=== PATIENT | male | born 1945 | race Caucasian/White ===

== ENCOUNTER 2017-03-18 07:27 | Inpatient (IN) | payer MEDICARE, OTHER ==
[~2017-03-18] VITALS: Ht 167.6 cm; Wt 91.0 kg
[2017-03-18] MEDS: ACCU-CHEK XX SCH
[2017-03-18] MEDS ORDERED: ACETAMINOPHEN 650 MG SUPP PR STA (07:45)
[2017-03-18] MEDS ORDERED: NORepinephrine 8MG/250 ML (PMX 250 ML ONE ×2 (07:45→18:38)
[2017-03-18 07:48] VITALS: Ht 167.6 cm; Wt 91.0 kg
[2017-03-18] MEDS ORDERED: VANCOMYCIN 1 GM (PMX) 250 ML IVPB STA (07:50)
[2017-03-18] MEDS ORDERED: SODIUM CHLORIDE 0.9% 1L BAG IV* STA (07:50)
[2017-03-18] MEDS ORDERED: NORepinephrine 8MG/250 ML (PMX 250 ML IV STA (07:50)
[2017-03-18] MEDS ORDERED: LEVOFLOXACIN 750MG/D5W (PMX) 150 ML IVPB STA (07:50)
[2017-03-18] MEDS ORDERED: PIPER-TAZO 3.375 GM IV (PMX) 100 ML IVPB STA (07:50)
--- NOTE | 2017-03-18 08:03 | ERA ---
ER Documentation Chief Complaint Date/Time DATE: 03/18/17 TIME: 08:03 Chief Complaint pulseless unresponsive HPI History is obtained entirely from paramedics and review of jail facility records as patient is unable to provide any history due to his clinical condition. 71-year-old male with a history of traumatic brain injury, seizure disorder, respiratory failure, atrial fibrillation, hypertension, hydrocephalus, peripheral vascular disease, rheumatoid arthritis, coronary artery disease, anxiety, depression and anemia presents to the emergency department via rescue ambulance for evaluation of altered mental status and hypoxia. Paramedics were called to the jail facility because the patient was found this morning hypoxic with O2 saturation in the 70s despite 15 L of supplemental oxygen. When paramedics arrived they were informed that the patient has been unresponsive for approximately 5 minutes. He was transported to the ED and on arrival in the driveway became pulseless and apneic. Most recent admission 02/05 to [facility] for sepsis due to pneumonia, urinary tract infection and acute respiratory failure. ROS All systems reviewed and are negative except as per history of present illness. Medications Home Meds Reported Medications Digoxin* (Lanoxin*) 0.125 Mg Tablet, 0.125 MG GTB DAILY, TAB 03/18/17 Ascorbic Acid* (Ascorbic Acid*) 500 Mg/5 Ml Syrup, 500 MG GTB DAILY, #150 ML 03/18/17 Zinc Sulfate* (Zinc Sulfate*) 220 Mg Tablet, 220 MG PO DAILY, TAB 03/18/17 Sennosides* (Senna Lax*) 8.6 Mg Tablet, 1 TAB PO DAILY Y for CONSTIPATION, TAB 03/18/17 Glucagon,Human Recombinant (Glucagon Emergency Kit) 1 Mg Kit, 1 MG IJ DAILY Y for GLUCOSE DECREASED, KIT 03/18/17 Insulin Regular, Human (Humulin R) 100 Unit/1 Ml Vial, 0-20 UNIT IJ DAILY, VIAL 03/18/17 Mirtazapine* (Mirtazapine*) 7.5 Mg Tablet, 7.5 MG GTB HS, TAB 03/18/17 Acetaminophen* (Acetaminophen*) 650 Mg Tablet, 650 MG GTB Q6H Y for MILD PAIN LEVEL 1-3, #30 TAB 03/18/17 Magnesium Hydroxide* (Milk Of Magnesia*) 400 Mg/5 Ml Oral.susp, 30 ML GTB DAILY Y for CONSTIPATION, ML 03/18/17 Ferrous Sulfate* (Ferrous Sulfate*) 325 Mg Tabec, 325 MG GTB TID, TAB 03/18/17 Levetiracetam* (Keppra*) 500 Mg/5 Ml Solution, 500 MG GTB BID, BOTTLE 03/18/17 Polyvinyl Alcohol* (Polyvinyl Alcohol*) 15 Ml Drops, 1 DROP BOTH EYES BID, EA 03/18/17 Magnesium Oxide* (Magnesium Oxide*) 400 Mg Tablet, 400 MG GTB BID, TAB 03/18/17 Terazosin Hcl* (Terazosin Hcl*) 2 Mg Capsule, 2 MG GTB BID, CAP HOLD FOR SBP<110+ 03/18/17 Metoprolol Tartrate* (Lopressor*) 25 Mg Tab, 25 MG GTB BID, #60 TAB 03/18/17 Rivaroxaban* (Xarelto*) 20 Mg Tablet, 20 MG GTB WITH DINNER, TAB 03/18/17 Pantoprazole* (Pantoprazole*) 40 Mg Tablet.dr, 40 MG GTB DAILY, TAB 03/18/17 Amino Acids/Protein Hydrolys (Pro-Stat 64 Liquid) 887 Ml Liquid, 30 ML GTB DAILY 03/18/17 Multivitamins* (Theragran*) 1 Tab Tab, 1 TAB GTB DAILY, TAB 03/18/17 Polyethylene Glycol* (Miralax*) 17 Gm Powd.pack, 17 GM GTB DAILY, #30 PACKET 03/18/17 Tamsulosin Hcl* (Tamsulosin Hcl*) 0.4 Mg Cap.er.24h, 0.4 MG GTB DAILY, CAP 03/18/17 Allergies Allergies: Coded Allergies: No Known Allergy (Unverified , 03/18/17) PMhx/Soc Reviewed in chart. As per HPI. SNF resident. History of Surgery: Yes (G-tube) Hx Neurological Disorder: Yes (Traumatic brain injury, seizures, hydrocephalus) Hx Respiratory Disorders: Yes (COPD, respiratory failure, pneumonia) Hx Cardiac Disorders: Yes (ASHD, atrial fib) Hx Psychiatric Problems: Yes (Anxiety, depression) Hx Alcohol Use: No Hx Substance Use: No Hx Tobacco Use: No FmHx Unknown Physical Exam Vitals Vital Signs Date Time Temp Pulse Resp B/P Pulse Ox O2 Delivery O2 Flow Rate FiO2 03/18/17 20:29 93.5 76 18 86/55 100 Mechanical Ventilator 8/2/17 20:15 93.6 88 18 75/51 100 Mechanical Ventilator 8/2/17 20:00 93.7 87 18 103/63 100 Mechanical Ventilator 8/2/17 19:45 93.7 89 18 106/65 100 Mechanical Ventilator 8/2/17 19:30 93.7 94 18 109/60 100 Mechanical Ventilator 8/2/17 19:15 93.8 97 18 95/64 100 Mechanical Ventilator 8/2/17 19:00 94.3 93 18 140/65 100 Mechanical Ventilator 8/2/17 18:45 94.5 94 18 119/61 98 Mechanical Ventilator 8/2/17 18:24 94.5 107 18 122/62 95 Mechanical Ventilator 8/2/17 17:30 95 18 99 35 8/2/17 17:30 91 18 123/60 95 Mechanical Ventilator 8/2/17 16:30 94.8 92 18 123/67 97 Mechanical Ventilator 8/2/17 15:30 95.4 96 18 112/64 98 Mechanical Ventilator 82/17 15:00 94 18 99 35 8/2/17 14:30 95.9 103 18 106/53 98 Mechanical Ventilator 82/17 13:30 96.8 99 18 91/55 98 Mechanical Ventilator 82/17 13:03 106 18 105/58 96 Mechanical Ventilator 8/2/17 13:00 103 18 100 35 8/2/17 12:35 104 18 95/53 95 Mechanical Ventilator 8/2/17 12:31 97.5 99 18 55/34 96 Mechanical Ventilator 82/17 12:10 97.5 105 18 104/64 95 Mechanical Ventilator 82/17 11:55 94 18 105/68 8/2/17 11:44 98.2 110 18 102/50 94 Mechanical Ventilator 8/2/17 11:30 101 18 108/62 94 Mechanical Ventilator 8/2/17 11:18 98.9 104 18 99/61 100 Mechanical Ventilator 8/2/17 11:00 92 18 95 35 8/2/17 10:30 106 102/63 100 Mechanical Ventilator 8/2/17 10:22 105 98/60 100 Mechanical Ventilator 8/2/17 10:00 103 19 104/62 100 Mechanical Ventilator 8/2/17 09:50 103 16 121/67 100 Mechanical Ventilator 8/2/17 09:45 100.0 108 26 122/65 100 Mechanical Ventilator 03/18/17 09:43 108 25 102/61 100 Mechanical Ventilator 03/18/17 09:33 105 26 101/62 100 Mechanical Ventilator 03/18/17 09:30 75 16 100 100 03/18/17 09:18 128 16 91/56 100 Mechanical Ventilator 03/18/17 09:13 109 16 103/55 03/18/17 09:04 110 17 104/59 03/18/17 08:55 111 16 103/59 03/18/17 08:48 113 97/54 03/18/17 08:43 117 17 102/56 03/18/17 08:38 117 16 108/56 03/18/17 08:32 119 100/57 03/18/17 08:31 119 104/56 100 Mechanical Ventilator 03/18/17 08:20 122 16 90/57 03/18/17 08:14 120 16 62/43 03/18/17 08:12 123 16 66/28 03/18/17 08:09 120 83/62 03/18/17 08:05 118 16 43/27 03/18/17 08:03 118 16 64/42 100 Mechanical Ventilator 03/18/17 08:01 116 16 57/42 100 Mechanical Ventilator 03/18/17 07:58 114 16 73/47 100 Mechanical Ventilator 03/18/17 07:56 59 22 56/41 93 Mechanical Ventilator 03/18/17 07:52 22 14 51/45 Mechanical Ventilator 03/18/17 07:48 103.8 44 16 73/35 95 03/18/17 07:43 103.6 51 16 73/35 Mechanical Ventilator 03/18/17 07:35 32 16 100 100 03/18/17 07:27 Bag Valve Mask 15 Physical Exam Const: Apneic, pulseless, unresponsive Head: Atraumatic Eyes: Normal Conjunctiva ENT: Mucous membranes dry Neck: JVD Resp: No spontaneous respirations, decreased breath sounds with bag valve mask Cardio: Pulseless Abd: Soft, non tender, non distended. No masses. G-Tube. Skin: Cyanotic Back: No deformity Ext: Cyanotic, no edema Neur: Unresponsive, Carl Coma Scale 3 Physical examination is truncated due to the constraints imposed by the patient' s clinical condition Result Diagram: 03/18/17 0815 03/18/17 7615 Results 24 hrs Laboratory Tests Test 03/18/17 07:45 03/18/17 08:15 03/18/17 09:03 03/18/17 09:26 Sodium Level 171mmol/L Potassium Level 3.7mmol/L Chloride Level 125mmol/L Carbon Dioxide Level 27mmol/L Anion Gap 23 Blood Urea Nitrogen 54mg/dl Creatinine 1.37mg/dl Glucose Level 405mg/dl Calcium Level 7.4mg/dl Total Bilirubin 0.0mg/dl Direct Bilirubin 0.00mg/dl Indirect Bilirubin 0.0mg/dl Aspartate Amino Transf (AST/SGOT) 82IU/L Alanine Aminotransferase (ALT/SGPT) 89IU/L Alkaline Phosphatase 103IU/L Total Protein 6.0g/dl Albumin 2.5g/dl Globulin 3.50g/dl Albumin/Globulin Ratio 0.71 White Blood Count 5.910^3/ul Red Blood Count 2.6910^6/ul Hemoglobin 7.8g/dl Hematocrit 27.7% Mean Corpuscular Volume 103.0fl Mean Corpuscular Hemoglobin 29.0pg Mean Corpuscular Hemoglobin Concent 28.2g/dl Red Cell Distribution Width 16.4% Platelet Count 77090^3/UL Mean Platelet Volume 14.0fl Neutrophils % 79.6% Lymphocytes % 14.1% Monocytes % 2.9% Eosinophils % 0.2% Basophils % 0.2% Nucleated Red Blood Cells % 0.5/100WBC Neutrophils # 4.710^3/ul Lymphocytes # 0.810^3/ul Monocytes # 0.210^3/ul Eosinophils # 0.010^3/ul Basophils # 0.010^3/ul Nucleated Red Blood Cells # 0.010^3/ul Prothrombin Time 18.7Sec Prothrombin Time Ratio 1.5 INR International Normalized Ratio 1.55 Activated Partial Thromboplast Time 36.4Sec Fibrinogen 497.0mg/dl D-Dimer > 81369.00ng/ml Lactic Acid Level 9.0mmol/L Phosphorus Level 5.8mg/dl Magnesium Level 2.4mg/dl Creatine Kinase 74IU/L Creatine Kinase Index 1.3 Creatinine Kinase MB (Mass) 0.94ng/ml Troponin I 0.312ng/ml Amylase Level 95U/L Lipase 61U/L Bedside Glucose 461mg/dL Blood Gas Specimen Source Blood arterial Arterial Blood Date Drawn 03/18/2017 10:00:32 AM Arterial Blood pH (Temp corrected) 7.235 Arterial Blood pCO2 (Temp correct) 61.6mmhg Arterial Blood pO2 (Temp corrected) 72.3mmHG Arterial Blood HCO3 25.5mmol/L Arterial Blood Base Excess -2.5mmol/L Arterial Blood Oxygen Saturation 88.7mmHG [place] Test N/A Arterial Blood Gas Puncture Site Right Brachial Arterial Blood Carboxyhemoglobin 0.2% Arterial Blood Methemoglobin 0.6% Blood Gas A-a O2 Differential 579.1mmHg Oxyhemoglobin Percent 88.0% Total Hemoglobin 10.2g/dl Blood Gas Temperature 37.0C Blood Gas Respiration Rate 16.0 Blood Gas Actual Respiration Rate 17 Blood Gas Modality VENT - AC FiO2 100.0% Blood Gas Tidal Volume 550.0mL Blood Gas Low PEEP Setting 5.0cmH2O Blood Gas Critical Value Read Back DR DYE Blood Gas Notified Whom TM Blood Gas Notified Time 03/18/2017 10:09:28 AM Test 03/18/17 10:03 03/18/17 10:05 03/18/17 10:20 03/18/17 13:54 Bedside Glucose 364mg/dL 363mg/dL Urine Color EDIE Urine Clarity CLOUDY Urine pH 6.0 Urine Specific [place] 1.014 Urine Ketones NEGATIVEmg/dL Urine Nitrite NEGATIVEmg/dL Urine Bilirubin NEGATIVEmg/dL Urine Urobilinogen 2+mg/dL Urine Leukocyte Esterase NEGATIVELeu/ul Urine Microscopic RBC 30/HPF Urine Microscopic WBC 59/HPF Urine Amorphous Crystals FEW/HPF Urine Bacteria FEW/HPF Urine Granular Casts FEW/HPF Urine Mucus FEW/HPF Urine Yeast (Budding) MANY/HPF Urine Hemoglobin 1+mg/dL Urine Glucose 3+mg/dL Urine Total Protein 2+mg/dl Lactic Acid Level 5.8mmol/L Test 03/18/17 14:27 03/18/17 14:30 03/18/17 15:04 03/18/17 16:03 Blood Gas Specimen Source Blood arterial Arterial Blood Date Drawn 03/18/2017 3:00:26 PM Arterial Blood pH (Temp corrected) 7.387 Arterial Blood pCO2 (Temp correct) 39.5mmhg Arterial Blood pO2 (Temp corrected) 79.0mmHG Arterial Blood HCO3 23.6mmol/L Arterial Blood Base Excess -1.7mmol/L Arterial Blood Oxygen Saturation 96.1mmHG Stanford Test ACCEPTAB Arterial Blood Gas Puncture Site Right Brachial Arterial Blood Carboxyhemoglobin 0% Arterial Blood Methemoglobin 0.3% Blood Gas A-a O2 Differential 126.0mmHg Oxyhemoglobin Percent 95.8% Total Hemoglobin 11.3g/dl Blood Gas Temperature 35.4C Blood Gas Respiration Rate 18.0 Blood Gas Actual Respiration Rate 18 Blood Gas Modality VENT - AC FiO2 35.0% Blood Gas Tidal Volume 550.0mL Blood Gas Low PEEP Setting 5.0cmH2O Blood Gas Notified Whom MDA Blood Gas Notified Time 03/18/2017 3:03:58 PM Prothrombin Time 19.1Sec Prothrombin Time Ratio 1.5 INR International Normalized Ratio 1.59 Activated Partial Thromboplast Time 35.4Sec Lactic Acid Level 4.8mmol/L Creatine Kinase 208IU/L Creatine Kinase Index 2.9 Creatinine Kinase MB (Mass) 6.11ng/ml Troponin I 0.845ng/ml Free Thyroxine 1.22ng/dl Bedside Glucose 177mg/dL 227mg/dL Test 03/18/17 18:40 03/18/17 20:27 Sodium Level 165mmol/L Potassium Level 3.6mmol/L Chloride Level 123mmol/L Carbon Dioxide Level 26mmol/L Anion Gap 20 Blood Urea Nitrogen 56mg/dl Creatinine 1.52mg/dl Glucose Level 249mg/dl Lactic Acid Level 4.5mmol/L Calcium Level 7.1mg/dl Creatine Kinase 292IU/L Creatine Kinase Index 2.9 Creatinine Kinase MB (Mass) 8.54ng/ml Troponin I 0.796ng/ml Blood Gas Specimen Source Blood arterial Arterial Blood Date Drawn 03/18/2017 8:30:45 PM Arterial Blood pH (Temp corrected) 7.467 Arterial Blood pCO2 (Temp correct) 33.0mmhg Arterial Blood pO2 (Temp corrected) 71.6mmHG Arterial Blood HCO3 23.9mmol/L Arterial Blood Base Excess -0.2mmol/L Arterial Blood Oxygen Saturation 96.5mmHG Stanford Test N/A Arterial Blood Gas Puncture Site Right Brachial Arterial Blood Carboxyhemoglobin 0% Arterial Blood Methemoglobin 0.3% Blood Gas A-a O2 Differential 142.0mmHg Oxyhemoglobin Percent 96.2% Total Hemoglobin 11.8g/dl Blood Gas Temperature 34.2C Blood Gas Respiration Rate 18.0 Blood Gas Actual Respiration Rate 18 Blood Gas Modality VENT - AC FiO2 35.0% Blood Gas Tidal Volume 550.0mL Blood Gas Low PEEP Setting 5.0cmH2O Blood Gas Inspiratory Pressure 25.0 Blood Gas Notified Whom AA Blood Gas Notified Time 03/18/2017 8:43:45 PM Current Medications Medications (Trade) Dose Ordered Sig/Elias Route PRN Reason Start Time Stop Time Status Last Admin Dose Admin Acetaminophen (Tylenol Supp) 650 mg ONCE STAT MS 03/18/17 07:45 03/18/17 07:48 DC 03/18/17 08:17 Sodium Chloride 2330 ml 2,330 ml BOLUS OVER 2 HOURS STAT IV* 03/18/17 07:50 03/18/17 07:52 DC 03/18/17 07:40 Norepinephrine 250 ml @ 7.5 mls/hr ONCE STAT IV 03/18/17 07:50 03/19/17 17:09 03/18/17 07:50 Vancomycin HCl 250 ml @ 125 mls/hr ONCE STAT IVPB 03/18/17 07:50 03/18/17 09:49 DC Piperacillin Sod/ Tazobactam Sod 100 ml @ 200 mls/hr ONCE STAT IVPB 03/18/17 07:50 03/18/17 08:19 DC 03/18/17 08:40 Levofloxacin/ Dextrose (Levaquin 750 Mg/ D5W 150 ml (Pmx)) 150 ml @ 100 mls/hr ONCE STAT IVPB 03/18/17 07:50 03/18/17 09:19 DC 03/18/17 09:37 Fentanyl (Sublimaze) 100 mcg STK-MED ONCE .ROUTE 03/18/17 09:31 03/18/17 09:32 DC Aspirin (Aspirin) 300 mg ONCE ONCE MS 03/18/17 10:30 03/18/17 10:31 DC 03/18/17 14:12 IV Flush (NS 3 ml) 3 ml PER PROTOCOL IV 03/18/17 10:30 Ondansetron HCl (Zofran Inj) 4 mg Q6H PRN IV NAUSEA AND/OR VOMITING 03/18/17 10:30 Acetaminophen (Tylenol Tab) 650 mg Q6H PRN PO PAIN LEVEL 1-3 OR FEVER 03/18/17 10:30 Acetaminophen/ Hydrocodone Bitart ([place] (5/325)) 1 tab Q6H PRN PO MODERATE PAIN LEVEL 4-6 03/18/17 10:30 Morphine Sulfate (morphine) 2 mg Q4H PRN IV SEVERE PAIN LEVEL 7-10 03/18/17 10:30 Docusate Sodium (Colace) 100 mg Q12H PRN PO CONSTIPATION 03/18/17 10:30 Magnesium Hydroxide (Milk Of Mag) 30 ml DAILY PRN PO CONSTIPATION 03/18/17 10:30 Sodium Biphosphate/ Sodium Phosphate (Fleet Enema) 133 ml DAILY PRN MS CONSTIPATION 03/18/17 10:30 Famotidine 20 mg 20 mg HS IV 03/18/17 21:00 Sodium Chloride (1/2 NS) 1,000 ml @ 75 mls/hr [id number] IV 03/18/17 10:09 03/18/17 14:24 DC 03/18/17 13:44 Lorazepam (Ativan) 0.5 mg Q6H PRN IV ANXIETY 03/18/17 10:30 Albuterol/ Ipratropium (Duoneb) 3 ml Q4H RESP THERAPY PRN HHN SHORTNESS OF BREATH 03/18/17 10:30 Vancomycin HCl (Vanco Iv Per Pharmacy) VANCOMYCIN PER PHARMACY NOTE XX 03/18/17 10:30 Hydralazine HCl (Apresoline) 10 mg Q6H PRN IV ELEVATED BLOOD PRESSURE 03/18/17 10:30 Nitroglycerin (Nitroglycerin (Sl Tab) 0.4 Mg) 1 tab Q5M PRN SL ANGINA 03/18/17 10:30 Miscellaneous Information (* Miscellaneous Pharmacy Order) Discontinue all previ... PROTOCOL ONCE XX 03/18/17 10:30 03/18/17 11:29 DC Diagnostic Test (Pha) 1 ea 1 ea Q1H XX 03/18/17 10:30 03/18/17 16:20 DC Insulin Human Regular/Sodium Chloride (Novolin-R/NS) 100 ml @ 0 mls/hr PER PROTOCOL IV 03/18/17 10:30 03/18/17 16:20 DC Miscellaneous Information (* Miscellaneous Pharmacy Order) Treatment of Hypoglycemia: 1.BG 51... Per protocol XX 03/18/17 10:30 03/18/17 16:20 DC Dextrose (D50w Syringe) 25 ml Q15M PRN IV Till BS 80 mg/dL or above x2 03/18/17 10:30 Dextrose 50 ml 50 ml Q15M PRN IV Till BS 80 mg/dL or above x2 03/18/17 10:30 Cefepime HCl (Maxipime 2gm/50 ml (Pmx)) 50 ml @ 100 mls/hr Q8 IVPB 03/18/17 14:00 03/18/17 14:00 DC Midazolam HCl (Versed) 2 mg STK-MED ONCE .ROUTE 03/18/17 10:34 03/18/17 10:35 DC Sodium Chloride 500 ml 500 ml ONCE STAT IV* 03/18/17 10:42 03/18/17 10:46 DC Insulin Human Regular/Sodium Chloride (Novolin-R/NS) 100 ml @ 0 mls/hr ONCE STAT IV 03/18/17 10:42 03/18/17 10:46 DC 03/18/17 14:06 Fentanyl (Sublimaze) 50 mcg ONCE STAT IV 03/18/17 10:42 03/18/17 10:47 DC 03/18/17 09:45 Fentanyl (Sublimaze) 25 mcg Q10M PRN IV SEDATION 03/18/17 11:00 03/18/17 11:33 Midazolam HCl (Versed) 2 mg ONCE ONCE IV 03/18/17 11:00 03/18/17 11:01 DC 03/18/17 11:30 Vecuronium [place] 8 mg 8 mg ONCE ONCE IV 03/18/17 11:00 03/18/17 11:01 DC 03/18/17 11:41 Vecuronium [place]/Dextrose (Norcuron/D5W) 100 ml @ 4.5 mls/hr [id number] ONCE IV 03/18/17 10:42 03/19/17 08:55 Eye Lubricant 1 applic 1 applic ONCE ONCE BOTH EYES 03/18/17 11:00 03/18/17 11:01 DC 03/18/17 14:27 Midazolam HCl (Versed) 50 ml @ 2 mls/hr ONCE IV 03/18/17 11:30 03/18/17 11:58 Miscellaneous Information 1 ea NOTE XX 03/18/17 11:30 03/18/17 11:30 DC Glucose (Glutose) 15 gm Q15M PRN PO DECREASED GLUCOSE 03/18/17 11:30 03/18/17 11:30 DC Glucose (Glutose) 22.5 gm Q15M PRN PO DECREASED GLUCOSE 03/18/17 11:30 03/18/17 11:30 DC Dextrose (D50w Syringe) 25 ml Q15M PRN IV DECREASED GLUCOSE 03/18/17 11:30 03/18/17 11:30 DC Dextrose (D50w Syringe) 50 ml Q15M PRN IV DECREASED GLUCOSE 03/18/17 11:30 03/18/17 11:30 DC Glucagon (Glucagen) 1 mg Q15M PRN IM DECREASED GLUCOSE 03/18/17 11:30 03/18/17 11:30 DC Glucose 15 gm 15 gm Q15M PRN BUCCAL DECREASED GLUCOSE 03/18/17 11:30 03/18/17 11:30 DC Vancomycin HCl 1.5 gm/Sodium Chloride 250 ml @ 83.333 mls/ hr ONCE IVPB 03/18/17 12:30 03/18/17 15:29 DC Vancomycin HCl 1.25 gm/Sodium Chloride 250 ml @ 83.333 mls/ hr Q24H IVPB 03/19/17 12:30 Cefepime HCl 50 ml @ 100 mls/hr Q12 IVPB 03/18/17 12:00 03/18/17 13:37 Dextrose (D5W) 1,000 ml @ 200 mls/hr Q5H IV 03/18/17 14:30 03/18/17 19:42 DC 03/18/17 15:11 Acetaminophen (Tylenol Supp) 650 mg Q4H PRN MS TEMP > 37C 03/18/17 14:30 03/18/17 19:08 Acetaminophen (Tylenol Liquid) 650 mg Q4H PRN PO TEMP > 37C 03/18/17 14:30 Acetaminophen (Tylenol Supp) 500 mg Q6H MS 03/19/17 14:30 Acetaminophen (Tylenol Liquid) 500 mg Q6H PO 03/19/17 14:30 Meperidine HCl (Demerol) 12.5 mg Q4H PRN IV POST OPERATIVE SHIVERING 03/18/17 14:30 Meperidine HCl (Demerol) 25 mg Q4H PRN IV POST OPERATIVE SHIVERING 03/18/17 14:30 Eye Lubricant ([place]wa Oint) 1 applic Q6 BOTH EYES 03/18/17 18:00 Eye Lubricant (Artificial Tears Oph) 2 drop Q6 BOTH EYES 03/18/17 18:00 Miscellaneous Information (* Miscellaneous Pharmacy Order) Discontinue all previ... PROTOCOL ONCE XX 03/18/17 14:30 03/18/17 16:20 DC Diagnostic Test (Pha) 1 ea 1 ea Q1H XX 03/18/17 14:30 Insulin Human Regular/Sodium Chloride (Novolin-R/NS) 100 ml @ 0 mls/hr PER PROTOCOL IV 03/18/17 14:30 Miscellaneous Information (* Miscellaneous Pharmacy Order) Treatment of Hypoglycemia: 1.BG 51... Per protocol XX 03/18/17 14:30 Dextrose (D50w Syringe) 25 ml Q15M PRN IV Till BS 80 mg/dL or above x2 03/18/17 14:30 Dextrose 50 ml 50 ml Q15M PRN IV Till BS 80 mg/dL or above x2 03/18/17 14:30 Norepinephrine 250 ml @ ud STK-MED ONCE .ROUTE 03/18/17 07:45 03/18/17 19:09 DC Norepinephrine 250 ml @ ud STK-MED ONCE .ROUTE 03/18/17 18:38 03/18/17 19:09 DC Vasopressin 60 unit/Dextrose 60 ml @ 1.2 mls/hr Q12H IV 03/18/17 20:00 03/18/17 20:28 Potassium Chloride/Dextrose/ Sod Cl (D5-1/4ns + KCl 20 Meq) 1,000 ml @ 80 mls/hr [id number] IV 03/18/17 20:00 EKG: TIME: 8:08. Wide QRS tachycardia. Right bundle branch block. No acute ST segment elevation. EP Interpretation: Abnormal EKG. IMAGING: PROCEDURE: XR Chest. CLINICAL INDICATION: Status post intubation TECHNIQUE: Single portable view of the chest was obtained COMPARISON: None FINDINGS: There is a new endotracheal tube 3.6 cm above the soo. There is a right-sided [employer] shunt catheter in place. There are extensive patchy bilateral upper lobe and lower lobe infiltrates. There is a possible small left pleural effusion. There is mild cardiomegaly. There are postsurgical changes of the lower thoracic spine. RPTAT: AA IMPRESSION: New endotracheal tube in appropriate position. Extensive patchy bilateral upper lobe and lower lobe infiltrates. Small left pleural effusion. .Cory Gonzalez MD, MD Date Time Electronically viewed and signed by .Cory Gonzalez MD, on 03/18/2017 08: 59 .S/ Procedures/MDM DOCUMENTS REVIEWED: ED nurse, EMS, jail facility records PROCEDURES: Endotracheal Intubation by me: Pre assessment performed. See preceding note for details. Pre-oxygenation performed with 100% oxygen RSI: Performed w/o complication or hypoxic events. Medications as ordered. Blade: [place] scope ET Tube: 7 cm Depth: 22 cm at the lip Intubation confirmed by colorimetric CO2, equal breath sounds, quiet over the stomach. Chest X-ray 1V Interpreted by me: 2 cm above the soo ET tube. Normal soft tissue, No pneumothorax. Central Line Placement by me: Patient consented, sterilely draped, full prep, gown, glove, mask, time out performed. Anesthesia: 1% lidocaine locally Location: Right femoral Device: Multiple lumen Technique: Seldinger technique. Secured with suture. Results: Venous return from all ports with easy saline flush. No complications. Guide wire retrieved and disposed of. Cardiopulmonary Resuscitation by me: See code documentation for specific details. ACLS and BLS were performed with high quality chest compressions and minimal interruptions. Reversible causes were assessed and treated. Severe Sepsis criteria: Infectious source: Pneumonia End organ damage indicated by: Lactate > 2.0 mmol/L Hypotension (SBP < 90 or >40 mmHG drop or MAP < 65) Acute Resp Failure (sat < 92% w/o oxygen) Clam Treader > 2.0 INR > 1.5 Plt < 100 Bili > 2 Sepsis Management: Time of recognition of severe sepsis/septic shock: 07:45 Within 3 hours of recognition: Blood cultures x 2 before broad-spectrum antibiotics: Yes 30 ml/kg NS bolus Completed Initial lactate 9.0 Repeat lactate 5.8 Septic Shock Assessment: Any lactic acid > 4.0 yes Persistent hypotension (SBP < 90 or 40 mmHg drop, MAP < 65) despite 30 mL/kg IV fluid bolus No Volume Re-assessment for Septic Shock (post 30 ml/kg bolus @ 10:30): Temp 99.5, BP 102/63, HR 106, RR 18, Pox 100% Heart tachycardic. Regular rhythm. Lungs decreased breath sounds with rales and rhonchi. Skin Warm & dry Cap Refill less than 2 seconds Peripheral pulses radially present Central line Right femoral Vasopressor started Norepinehrine I considered further perfusion assessment with CVP measurement, SCVO2, bedside ultrasound volume assessment, passive leg raise, trial of further fluid bolus and proceeded with further fluid bolus. Accepting Care Team Current data and ongoing care discussed. Time: 09: 30 Admitting Physician: Dr. Rodrigo Gonzalez Critical Care Time: 35 minutes Treatments/Evaluations: Close monitoring and treatment of unstable vital signs, cardiorespiratory, and neurologic status, while maintaining tight balance of fluid, respiratory, and cardiac interventions. This includes the administration of emergency fluid management while maintaining close respiratory support as well as the provision of immediate and broad-spectrum antibiotic therapy, while performing a simultaneous assessment for possible sources in order to direct targeted therapy. This time includes discussing the case with the patient and the patient's family. This time also includes the consideration for invasive and chemical support to prevent cardiopulmonary collapse. This time does not include all procedures stated elsewhere in this record. This time also includes reviewing old records, labs and radiological studies. This time includes examining and re-examining the patient. Additionally, this time also includes arranging care with admitting and consulting physicians. MEDICAL DECISION MAKIN-year-old male with a history of traumatic brain injury, seizure disorder, respiratory failure, atrial fibrillation, hypertension , hydrocephalus, peripheral vascular disease, rheumatoid arthritis, coronary artery disease, anxiety, depression and anemia presents to the emergency department via rescue ambulance for evaluation of altered mental status and hypoxia. On presentation the patient was apneic and pulseless. CPR initiated with ACLS protocol and resuscitated successfully. Intubated and right femoral line placed emergently. ROSC and hypothermia as per protocol. Septic shock likely secondary to pneumonia. Ongoing hypotension required vasopressor support. Elevated troponin consistent with NSTEMI. Multiple other critical factors including severe anemia, hypernatremia, dehydration, renal insufficiency and diabetes mellitus out of control. Admit to ICU. Counseled family regarding diagnosis, diagnostic results and plan for admission. CALLS/CONSULTS: Time 09:10, Dr. Radha Gonzalez, Admit to ICU. PATIENT CARE TRANSITIONED: Time: 09:30, Dr. Regalado. 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
[2017-03-18 08:35] LABS: ABNORMAL IP MESSAGE 1; BASOPHILS % 0.2 % (0.0-2.0); EOSINOPHILS % 0.2 % (0.0-7.0); HEMATOCRIT 27.7 % (42.0-52.0); HEMOGLOBIN 7.8 g/dl (14.0-18.0); LYMPHOCYTES # 0.8 10^3/ul (0.8-2.9); LYMPHOCYTES % 14.1 % (15.0-51.0); MEAN CORPUSCULAR HGB CONC 28.2 g/dl (32.0-37.0); MONOCYTE # 0.2 10^3/ul (0.3-0.9); MONOCYTES % 2.9 % (0.0-11.0); NEUTROPHIL # 4.7 10^3/ul (1.6-7.5); NEUTROPHILS % 79.6 % (39.0-77.0); NUCLEATED RED BLOOD CELLS% 0.5 /100WBC (0.0-0.0); PLATELET COUNT 148 10^3/UL (140-415); POSITIVE DIFF @See below; RED BLOOD COUNT 2.69 10^6/ul (4.70-6.10); RED CELL DISTRIBUTION WIDTH 16.4 % (11.5-14.5); WHITE BLOOD COUNT 5.9 10^3/ul (4.8-10.8)
--- NOTE | 2017-03-18 08:59 | RADRPT ---
PROCEDURE: XR Chest. CLINICAL INDICATION: Status post intubation TECHNIQUE: Single portable view of the chest was obtained COMPARISON: None FINDINGS: There is a new endotracheal tube 3.6 cm above the soo. There is a right-sided SAP ARCHITECT shunt catheter in place. There are extensive patchy bilateral upper lobe and lower lobe infiltrates. There is a possible sma ll left pleural effusion. There is mild cardiomegaly. There are postsurgical changes of the lower thoracic spine. RPTAT: AA IMPRESSION: New endotracheal tube in appropriate position. Extensive patchy bilateral upper lobe and lower lobe infiltrates. Small left pleural effusion. .Cory Gonzalez MD, MD Date Time Electronically viewed and signed by .Cory Gonzalez MD, MD on 03/18/2017 08:59 .S/
[2017-03-18 09:04] LABS: INR 1.55; PROTIME 18.7 Sec (12.2-14.2); PT RATIO 1.5
[2017-03-18 09:05] LABS: PARTIAL THROMBOPLASTIN TIME 36.4 Sec (25.0-35.0)
[2017-03-18] MEDS ORDERED: FENTAnyl 50 MCG/ML VIAL ONE (09:31)
[2017-03-18 09:47] LABS: ALBUMIN 2.5 g/dl (3.3-4.9); ALBUMIN/GLOBULIN RATIO 0.71; CALCIUM 7.4 mg/dl (8.4-10.2); CREATININE 1.37 mg/dl (0.61-1.24); POTASSIUM 3.7 mmol/L (3.5-5.1)
[2017-03-18 09:55] LABS: CK-MB 0.94 ng/ml (0.0-2.4)
[2017-03-18 09:59] LABS: TROPONIN-I 0.312 ng/ml (0.00-0.12)
[2017-03-18 10:09] LABS: AADO2 Arterial 579.1 mmHg (7.0-24.0); Arterial Base Excess -2.5 mmol/L (-3.0-3); Arterial COHb 0.2 % (0.0-3.0); Arterial HCO3 25.5 mmol/L (22.0-26.0); Arterial MetHb 0.6 % (0.0-1.5); Arterial Total Hemglobin 10.2 g/dl (12.0-18.0); MODE VENT - AC
[2017-03-18] MEDS ORDERED: SOD CHLORIDE 0.45% 1,000 ML IV SCH (10:09)
[2017-03-18 10:11] LABS: MAGNESIUM 2.4 mg/dl (1.7-2.5); PHOSPHORUS 5.8 mg/dl (2.5-4.9)
[2017-03-18] MEDS ORDERED: HYDROCODONE/APAP (5/325) TAB PO PRN (10:30)
[2017-03-18] MEDS ORDERED: LORAZEPAM 2 MG INJ IV PRN (10:30)
[2017-03-18] MEDS ORDERED: ONDANSETRON 4 MG INJ IV PRN (10:30)
[2017-03-18] MEDS ORDERED: hydrALAzine 20 MG INJ IV PRN (10:30)
[2017-03-18] MEDS ORDERED: NACL 0.9% 3 ML SYG IV SCH (10:30)
[2017-03-18] MEDS ORDERED: INSULIN HUMAN REGULAR 100 UNIT in SOD CHLORIDE 0.9% 99 ML IV SCH (10:30)
[2017-03-18] MEDS ORDERED: ACETAMINOPHEN 325 MG TAB PO PRN (10:30)
[2017-03-18] MEDS ORDERED: ALBUTEROL/IPRATROPIUM (NEB) 3 ML AMP HHN PRN (10:30)
[2017-03-18] MEDS ORDERED: morphine 4 MG/ML VIAL IV PRN (10:30)
[2017-03-18] MEDS ORDERED: NITROGLYCERIN (SL) 0.4 MG TAB SL PRN (10:30)
[2017-03-18] MEDS ORDERED: VANCOMYCIN IV PER PHARMACY XX SCH (10:30)
[2017-03-18] MEDS ORDERED: DEXTROSE 50% 50 ML SYRINGE IV PRN ×6 (10:30→14:30)
[2017-03-18] MEDS ORDERED: DOCUSATE SODIUM 100 MG CAP PO PRN (10:30)
[2017-03-18] MEDS ORDERED: ACCU-CHEK XX SCH (10:30)
[2017-03-18] MEDS ORDERED: ASPIRIN 300 MG SUPP PR ONE (10:30)
[2017-03-18] MEDS ORDERED: MAGNESIUM HYDROXIDE 30ML CUP PO PRN (10:30)
[2017-03-18] MEDS ORDERED: NA PHOSPHATE/BIPHOS 133 ML ENEMA PR PRN (10:30)
[2017-03-18 10:34] LABS: ADD UMIC YES; UR AMORPHOUS CRYSTAL FEW /HPF (NONE SEEN); UR ASCORBIC ACID 40 mg/dL (NEGATIVE); UR BACTERIA FEW /HPF (NONE SEEN); UR BILIRUBIN (Dip) NEGATIVE (NEGATIVE); UR BLOOD (Dip) 1+ mg/dL (NEGATIVE); UR BUDDING YEAST MANY /HPF (NONE SEEN); UR CLARITY CLOUDY (CLEAR); UR COLOR AMBER (YELLOW); UR GLUCOSE (Dip) 3+ mg/dL (NEGATIVE); UR KETONES (Dip) NEGATIVE (NEGATIVE); UR LEUKOCYTE ESTERASE (Dip) NEGATIVE Leu/ul (NEGATIVE); UR MUCUS FEW /HPF (NONE SEEN); UR NITRITE (Dip) NEGATIVE (NEGATIVE); UR RBC 30 /HPF (0-5); UR SPECIFIC GRAVITY (Dip) 1.014 (1.003-1.030); UR TOTAL PROTEIN (Dip) 2+ mg/dl (NEGATIVE); UR UROBILINOGEN (Dip) 2+ mg/dL (NEGATIVE); UR WBC CLUMPS MANY /HPF (NONE SEEN)
[2017-03-18] MEDS ORDERED: MIDAZOLAM 1 MG/ML 2 ML INJ ONE (10:34)
[2017-03-18 10:38] LABS: D-DIMER > 10000.00 ng/ml (<460)
[2017-03-18] MEDS ORDERED: SODIUM CHLORIDE 0.9% 500 ML BAG IV* STA (10:42)
[2017-03-18] MEDS ORDERED: INSULIN HUMAN REGULAR 100 UNIT in SOD CHLORIDE 0.9% 99 ML IV STA (10:42)
[2017-03-18] MEDS ORDERED: FENTAnyl 50 MCG/ML VIAL IV STA (10:42)
[2017-03-18] MEDS ORDERED: VECURONIUM 100 MG in DEXTROSE 5% 100 ML IV ONE (10:42)
[2017-03-18] MEDS ORDERED: VECURONIUM 10 MG VIAL IV ONE (11:00)
[2017-03-18] MEDS ORDERED: OCULAR LUBRICANT 3.5 GM OPH OINT BOTH EYES ONE (11:00)
[2017-03-18] MEDS ORDERED: MIDAZOLAM 1 MG/ML 2 ML INJ IV ONE (11:00)
[2017-03-18] MEDS: FENTAnyl 50 MCG/ML VIAL IV PRN ×2 (11:29→11:33)
[2017-03-18] MEDS ORDERED: GLUCAGON 1 MG INJ IM PRN (11:30)
[2017-03-18] MEDS ORDERED: GLUCOSE GEL 15 GRAM TUBE BUCCAL PRN (11:30)
[2017-03-18] MEDS ORDERED: GLUCOSE GEL 15 GRAM TUBE PO PRN ×2 (11:30)
[2017-03-18] MEDS: MIDAZOLAM (DRIP) 50 mg/50 mL 50 ML IV SCH (11:58)
[2017-03-18] MEDS ORDERED: TAMS0.4C2 GTB (12:29)
[2017-03-18] MEDS ORDERED: VANCOMYCIN 1.5 GM in SOD CHLORIDE 0.9% 250 ML IVPB SCH (12:30)
[2017-03-18] MEDS ORDERED: POLY17PO6 GTB (12:32)
[2017-03-18] MEDS ORDERED: MULTI GTB (12:33)
[2017-03-18] MEDS ORDERED: AMIN887L GTB (12:35)
[2017-03-18] MEDS ORDERED: PANT40TA4 GTB (12:36)
[2017-03-18] MEDS ORDERED: METO-448 GTB (12:37)
[2017-03-18] MEDS ORDERED: RIVA20TA GTB (12:37)
[2017-03-18] MEDS ORDERED: TERA2CAP3 GTB (12:40)
[2017-03-18] MEDS ORDERED: MAGN400T28 GTB (12:41)
[2017-03-18] MEDS ORDERED: POLY15DR30 BOTH EYES (12:43)
[2017-03-18] MEDS ORDERED: LEVE500S8 GTB (12:44)
[2017-03-18] MEDS ORDERED: FER325 GTB (12:49)
[2017-03-18] MEDS ORDERED: MAGN400O4 GTB (12:50)
[2017-03-18] MEDS ORDERED: MIRT7.5T8 GTB (12:51)
[2017-03-18] MEDS ORDERED: ACET-2047 GTB (12:51)
[2017-03-18] MEDS ORDERED: INSU100V3 IJ (12:55)
[2017-03-18] MEDS ORDERED: ZINC220T PO (12:57)
[2017-03-18] MEDS ORDERED: GLUC1KIT IJ (12:57)
[2017-03-18] MEDS ORDERED: SENN-53 PO (12:57)
[2017-03-18] MEDS ORDERED: DIGO125T6 GTB (12:58)
[2017-03-18] MEDS ORDERED: ASCO500S2 GTB (12:58)
[2017-03-18] MEDS: CEFEPIME 2GM/50 ML (PMX) 50 ML IVPB SCH (13:37)
[2017-03-18] MEDS ORDERED: CEFEPIME 2GM/50 ML (PMX) 50 ML IVPB SCH (14:00)
--- NOTE | 2017-03-18 14:03 | CONS ---
Date/Time of Note Date/Time of Note DATE: 03/18/17 TIME: 13:59 Assessment/Plan Assessment/Plan Additional Assessment/Plan Chest x-ray was reviewed from today which is showing endotracheal tube at an adequate level. Bilateral infiltrates are present which are either combination of pneumonia versus pulmonary edema. Ventilator setting; AC of 18, tidal volume 550, PEEP of 5, 35% FiO2. Assessment recommendations; 1. Patient admitted for cardiac arrest status post CPR currently on hypothermia protocol. 2. Likely acute CA. 3. Possibly aspiration pneumonia. 4. Multiple comorbidities including history of hypertension, hydrocephalus, seizures, atrial fibrillation, underlying coronary artery disease. 5. Severe intravascular volume depletion. With severe hypernatremia and hyperchloremia. Continue current treatment. Add free water via G-tube every 6 hours to 50 mL. Obtain follow-up chest x-ray in 24 hours. Continue current supportive care. Prognosis is very guarded. Consultation Date/Type/Reason Admit Date/Time Date of Consultation: Mar 18, 2017 Type of Consultation: Pulmonary/critical care Reason for Consultation Patient is a 71-year-old male who was transferred from the shelter after undergoing cardiac arrest over there. CPR was done patient subsequently transferred to ER. The patient was intubated. By the time I saw him the patient is orally intubated on hypothermia protocol. History was obtained from medical records. Past medical history; next 1. Patient with history of traumatic brain injury. 2. Seizure disorder. 3. Coronary artery disease. 4. Atrial ablation. 5. Hypertension. 6. History of hydrocephalus. 7. History of depression. Medications; reviewed. Allergies; none. Social history, family history, occupational history is not available. General exam; elderly male, orally intubated, sedated and paralyzed. Currently in no distress. Exam/Review of Systems Vital Signs Vitals Vital Signs Date Time Temp Pulse Resp B/P Pulse Ox O2 Delivery O2 Flow Rate FiO2 03/18/17 12:35 104 18 95/53 95 Mechanical Ventilator 03/18/17 07:48 103.8 03/18/17 07:35 100 Exam HEENT exam; supple neck, no JVD. No lymphadenopathy. Midline trachea. Patient is edentulous. No thyromegaly. Orally intubated. Chest exam; diminished breath sounds bilaterally. S1-S2 audible, no murmurs. Regular rhythm. Abdomen exam; soft, G-tube in place. Bowel sounds are absent. No organomegaly felt. Extremity exam; chronic appearing 2+ edema involving left lower extremity. Dorsalis pedis and posterior tibial pulses not palpable. JAVA SOLUTIONS ARCHITECT exam; patient is paralyzed and sedated. Results Result Diagram: 03/18/17 0815 03/18/17 0745 Results 24 hrs Laboratory Tests Test 03/18/17 07:45 03/18/17 08:15 03/18/17 09:03 03/18/17 09:26 Sodium Level 171 *H Potassium Level 3.7 Chloride Level 125 H Carbon Dioxide Level 27 Anion Gap 23 H Blood Urea Nitrogen 54 H Creatinine 1.37 H Glucose Level 405 *H Calcium Level 7.4 L Total Bilirubin 0.0 L Direct Bilirubin 0.00 Indirect Bilirubin 0.0 Aspartate Amino Transf (AST/SGOT) 82 H Alanine Aminotransferase (ALT/SGPT) 89 H Alkaline Phosphatase 103 Total Protein 6.0 L Albumin 2.5 L Globulin 3.50 H Albumin/Globulin Ratio 0.71 White Blood Count 5.9 Red Blood Count 2.69 L Hemoglobin 7.8 L Hematocrit 27.7 L Mean Corpuscular Volume 103.0 H Mean Corpuscular Hemoglobin 29.0 Mean Corpuscular Hemoglobin Concent 28.2 L Red Cell Distribution Width 16.4 H Platelet Count 148 Mean Platelet Volume 14.0 H Neutrophils % 79.6 H Lymphocytes % 14.1 L Monocytes % 2.9 Eosinophils % 0.2 Basophils % 0.2 Nucleated Red Blood Cells % 0.5 H Neutrophils # 4.7 Lymphocytes # 0.8 Monocytes # 0.2 L Eosinophils # 0.0 Basophils # 0.0 Nucleated Red Blood Cells # 0.0 Prothrombin Time 18.7 H Prothrombin Time Ratio 1.5 INR International Normalized Ratio 1.55 Activated Partial Thromboplast Time 36.4 H Fibrinogen 497.0 H D-Dimer > 02258.00 H Lactic Acid Level 9.0 *H Phosphorus Level 5.8 H Magnesium Level 2.4 Creatine Kinase 74 Creatine Kinase Index 1.3 Creatinine Kinase MB (Mass) 0.94 Troponin I 0.312 *H Amylase Level 95 Lipase 61 Bedside Glucose 461 *H Blood Gas Specimen Source Blood arterial Arterial Blood Date Drawn 03/18/2017 10:00:32 AM Arterial Blood pH (Temp corrected) 7.235 *L Arterial Blood pCO2 (Temp correct) 61.6 H Arterial Blood pO2 (Temp corrected) 72.3 L Arterial Blood HCO3 25.5 Arterial Blood Base Excess -2.5 Arterial Blood Oxygen Saturation 88.7 L Stanford Test N/A Arterial Blood Gas Puncture Site Right Brachial Arterial Blood Carboxyhemoglobin 0.2 Arterial Blood Methemoglobin 0.6 Blood Gas A-a O2 Differential 579.1 H Oxyhemoglobin Percent 88.0 L Total Hemoglobin 10.2 L Blood Gas Temperature 37.0 Blood Gas Respiration Rate 16.0 Blood Gas Actual Respiration Rate 17 Blood Gas Modality VENT - AC FiO2 100.0 Blood Gas Tidal Volume 550.0 Blood Gas Low PEEP Setting 5.0 Blood Gas Critical Value Read Back DR DYE Blood Gas Notified Whom TM Blood Gas Notified Time 03/18/2017 10:09:28 AM Test 03/18/17 10:03 03/18/17 10:05 03/18/17 10:20 Bedside Glucose 364 H Urine Color EDIE Urine Clarity CLOUDY A Urine pH 6.0 Urine Specific [place] 1.014 Urine Ketones NEGATIVE Urine Nitrite NEGATIVE Urine Bilirubin NEGATIVE Urine Urobilinogen 2+ H Urine Leukocyte Esterase NEGATIVE Urine Microscopic RBC 30 H Urine Microscopic WBC 59 H Urine Amorphous Crystals FEW A Urine Bacteria FEW A Urine Granular Casts FEW A Urine Mucus FEW A Urine Yeast (Budding) MANY A Urine Hemoglobin 1+ H Urine Glucose 3+ H Urine Total Protein 2+ H Lactic Acid Level 5.8 *H Medications Medications Current Medications Ondansetron HCl (Zofran Inj) 4 mg Q6H PRN IV NAUSEA AND/OR VOMITING; Start 03/18 at 10:30 Acetaminophen (Tylenol Tab) 650 mg Q6H PRN PO PAIN LEVEL 1-3 OR FEVER; Start at 10:30 Acetaminophen/ Hydrocodone Bitart ([place] (5/325)) 1 tab Q6H PRN PO MODERATE PAIN LEVEL 4-6; Start 03/18/17 at 10:30 Morphine Sulfate (morphine) 2 mg Q4H PRN IV SEVERE PAIN LEVEL 7-10; Start at 10:30 Docusate Sodium (Colace) 100 mg Q12H PRN PO CONSTIPATION; Start 03/18/17 at 10: 30 Magnesium Hydroxide (Milk Of Mag) 30 ml DAILY PRN PO CONSTIPATION; Start at 10:30 Sodium Biphosphate/ Sodium Phosphate (Fleet Enema) 133 ml DAILY PRN [place] CONSTIPATION; Start 03/18/17 at 10:30 Famotidine 20 mg 20 mg HS IV ; Start 03/18/17 at 21:00 Sodium Chloride (1/2 NS) 1,000 ml @ 75 mls/hr [id number] IV Last administered on 03/18/17t 13:44; Admin Dose 75 MLS/HR; Start 03/18/17 at 10:09 Lorazepam (Ativan) 0.5 mg Q6H PRN IV ANXIETY; Start 03/18/17 at 10:30 Vancomycin HCl (Vanco Iv Per Pharmacy) VANCOMYCIN PER PHARMACY NOTE XX ; Start 03/18/17 at 10:30 Hydralazine HCl (Apresoline) 10 mg Q6H PRN IV ELEVATED BLOOD PRESSURE; Start at 10:30 Nitroglycerin (Nitroglycerin (Sl Tab) 0.4 Mg) 1 tab Q5M PRN SL ANGINA; Start at 10:30 Diagnostic Test (Pha) (Accu-Chek) 1 ea Q1H XX ; Start 03/18/17 at 10:30 Dextrose (D50w Syringe) 25 ml Q15M PRN IV Till BS 80 mg/dL or above x2; Start 03/18/17 at 10:30 Dextrose 50 ml 50 ml Q15M PRN IV Till BS 80 mg/dL or above x2; Start 03/18/17 at 10:30 Vecuronium [place] 100 mg/ Dextrose 100 ml @ 4.5 mls/hr [id number] ONCE IV ; Start 03/18/17 at 10:42; Stop 03/19/17 at 08:55 Midazolam HCl 50 ml @ 2 mls/hr ONCE IV Last administered on 03/18/17t 11:58; Admin Dose 2 MLS/HR; Start 03/18/17 at 11:30 Vancomycin HCl 1.5 gm/Sodium Chloride 250 ml @ 83.333 mls/ hr ONCE IVPB ; Start 03/18/17 at 12:30; Stop 03/18/17 at 15:29 Vancomycin HCl 1.25 gm/Sodium Chloride 250 ml @ 83.333 mls/ hr Q24H IVPB ; Start 03/19/17 at 12:30 Cefepime HCl (Maxipime 2gm/50 ml (Pmx)) 50 ml @ 100 mls/hr Q12 IVPB Last administered on 03/18/17t 13:37; Admin Dose 100 MLS/HR; Start 03/18/17 at 12:00 BONIFACIO LOBO Mar 18, 2017 14:03
[2017-03-18] MEDS ORDERED: DEXTROSE 5% 1,000 ML IV SCH (14:30)
[2017-03-18] MEDS ORDERED: MEPERIDINE 25 MG INJ IV PRN ×2 (14:30)
[2017-03-18] MEDS ORDERED: ACETAMINOPHEN 650MG/20.3ML CUP PO PRN (14:30)
[2017-03-18] MEDS ORDERED: ACETAMINOPHEN 650 MG SUPP PR PRN (14:30)
--- NOTE | 2017-03-18 14:33 | RADRPT ---
Echocardiogram Report Patient Name: RADHA LAMAS Gender: Male Date: 1945 Study Date: 18-Mar-2017 Mold Maintenance Technician: Yung [facility] Location: [facility] Ref. Physician: WENDY SHI Quality: Technically Difficult Study Procedures: Transthoracic echocardiogram with complete 2D, M-Mode, and doppler examination. Indications: Cardiac Arrest. 2D/M Mode Doppler Measurement Value Normal Ranges Measurement Value Normal Ranges LVIDd 2D 4.1 3.5 - 5.6 cm AV Peak Joseph 2.1 m/sec LVIDs 2D 2.8 2.1 - 4.1 cm AV Peak PG 17.0 mmHg FS 2D 31.3 % AI Peak PG 41.0 mmHg LVPWd 2D 1.2 0.6 - 1.1 cm AI Peak Joseph 3.2 m/sec IVSd 2D 1.1 0.6 - 1.1 cm AI PHT 788.0 msec IVS/LVPW 2D 0.9 LVOT Peak Joseph 1.3 m/sec AoR Diam 2D 2.9 2.0 - 3.7 cm LVOT Peak PG 7.0 mmHg LA/Ao 2D 1 0 - 1 MV E Peak Joseph 0.8 m/sec EDV 2D 66.9 cm3 MV A Peak Joseph 0.9 m/sec ESV 2D 21.7 cm3 MV E/A 0.9 LA Dimen 2D 4.2 2.3 - 4.0 cm MV Decel Time 201 msec MV E/A 0.9 TR Peak Joseph 3.7 m/sec TR Peak PG 54.0 mmHg RVSP 62.0 mmHg Findings Left Ventricle: Normal left ventricular systolic function. Normal left ventricular cavity size. Normal left ventricular wall thickness. Ejection fraction is visually estimated at 60 %. Right Ventricle: Normal right ventricular size. Normal right ventricular systolic function. Left Atrium: There is mild enlargement of left atrium. Right Atrium: The right atrium is normal in size. Mitral Valve: Mild mitral leaflet calcification. Mild mitral annular calcification. Trace mitral regurgitation. Aortic Valve: Aortic sclerosis without stenosis. Mild aortic valve regurgitation. Tricuspid Valve: Normal appearance of the tricuspid valve. Estimated peak PA systolic pressure 62 mmHg. There is mild tricuspid regurgitation. Pulmonic Valve: Pulmonic valve not well visualized. There is trace pulmonic regurgitation. Pericardium: Left pleural effusion seen. Aorta: Normal aortic root. IVC: Normal size and no respiratory collapse consistent with elevated right atrial pressure. Conclusions 1.The left ventricle is normal in size and systolic function. 2.Estimated left ventricular ejection fraction of 60%. 3.Pulmonary hypertension with estimated RVSP of 62 mmHg. Electronically Signed By: Ludwig Fu 18-Mar-2017 14:32:53 -0700 Patient Name: RADHA LAMAS Study Date: 18-Mar-2017 [id number]
[2017-03-18 15:04] LABS: Allen Test ACCEPTAB; Arterial Base Excess -1.7 mmol/L (-3.0-3); Arterial COHb 0 % (0.0-3.0); Arterial Fraction of Oxyhgb 95.8 % (93.0-99.0); Arterial HCO3 23.6 mmol/L (22.0-26.0); Arterial MetHb 0.3 % (0.0-1.5); Arterial Total Hemglobin 11.3 g/dl (12.0-18.0); MODE VENT - AC
[2017-03-18 15:13] LABS: INR 1.59; PROTIME 19.1 Sec (12.2-14.2); PT RATIO 1.5
[2017-03-18 15:14] LABS: PARTIAL THROMBOPLASTIN TIME 35.4 Sec (25.0-35.0)
--- NOTE | 2017-03-18 15:42 | CONS ---
Date/Time of Note Date/Time of Note DATE: 03/18/17 TIME: 15:30 Assessment/Plan Assessment/Plan Chief Complaint/Hosp Course Assessment: Status post cardiac arrest - initial rhythm asystole, likely secondary to septic shock Septic shock and healthcare-associated pneumonia - on pressors and antibiotics Acute hypoxic respiratory failure - intubated and on mechanical ventilation Atrial fibrillation, likely chronic - physiologic ventricular rates NSTEMI - likely type 2, reported history of coronary artery disease (details unknown) Acute kidney injury Hypernatremia Rheumatoid arthritis History of traumatic brain injury, hydrocephalus, seizures Incomplete data Recommendations: -echocardiogram showed normal LVEF 60%, RVSP 62 mmHg -intravenous fluid hydration -Levophed to keep MAP>65 -hypothermia protocol Problems: Consultation Date/Type/Reason Admit Date/Time Type of Consultation: Cardiology Reason for Consultation cardiac arrest Hx of Present Illness The patient is a 71 year-old male who was brought into the emergency department from his [facility] facility for hypoxia. On presentation, he was pulseless and apneic with an initial rhythm of asystole. CPR and ACLS was performed with successful resuscitation. He is now intubated and on mechanical ventilation, on a Levophed drip, and started on the hypothermic protocol. Telemetry shows atrial fibrillation with ventricular rates in the 90s-100s. Unable to obtain review of systems, patient is intubated. Past Medical History Atrial fibrillation Coronary artery disease - details unknown Rheumatoid arthritis History of traumatic brain injury History of hydrocephalus History of seizures Incomplete data Past Surgical History Unable to obtain Family History Significant Family History: other (unable to obtain) Social History Unable to obtain Exam/Review of Systems Vital Signs Vitals Vital Signs Date Time Temp Pulse Resp B/P Pulse Ox O2 Delivery O2 Flow Rate FiO2 03/18/17 14:30 95.9 103 18 106/53 98 Mechanical Ventilator 03/18/17 07:35 100 Exam Constitutional: No alert, No distress Psych: other (sedated), No nl mood/affect Head: atraumatic, normocephalic Eyes: nl conjunctiva, nl lids ENMT: intubated, No nl lips & teeth (missing teeth) Neck: No jvd Respiratory: crackles/rales, diminished breath sounds Cardiovascular: irregular rhythm, No regular rate and rhythm Gastrointestinal: non-tender, soft Extremities: edema (LLE>RLE) Neurological: No nl mental status, No nl speech Skin: nl turgor Results Result Diagram: 03/18/17 0815 03/18/17 0745 Results 24 hrs Laboratory Tests Test 03/18/17 07:45 03/18/17 08:15 03/18/17 09:03 03/18/17 09:26 Sodium Level 171 *H Potassium Level 3.7 Chloride Level 125 H Carbon Dioxide Level 27 Anion Gap 23 H Blood Urea Nitrogen 54 H Creatinine 1.37 H Glucose Level 405 *H Calcium Level 7.4 L Total Bilirubin 0.0 L Direct Bilirubin 0.00 Indirect Bilirubin 0.0 Aspartate Amino Transf (AST/SGOT) 82 H Alanine Aminotransferase (ALT/SGPT) 89 H Alkaline Phosphatase 103 Total Protein 6.0 L Albumin 2.5 L Globulin 3.50 H Albumin/Globulin Ratio 0.71 White Blood Count 5.9 Red Blood Count 2.69 L Hemoglobin 7.8 L Hematocrit 27.7 L Mean Corpuscular Volume 103.0 H Mean Corpuscular Hemoglobin 29.0 Mean Corpuscular Hemoglobin Concent 28.2 L Red Cell Distribution Width 16.4 H Platelet Count 148 Mean Platelet Volume 14.0 H Neutrophils % 79.6 H Lymphocytes % 14.1 L Monocytes % 2.9 Eosinophils % 0.2 Basophils % 0.2 Nucleated Red Blood Cells % 0.5 H Neutrophils # 4.7 Lymphocytes # 0.8 Monocytes # 0.2 L Eosinophils # 0.0 Basophils # 0.0 Nucleated Red Blood Cells # 0.0 Prothrombin Time 18.7 H Prothrombin Time Ratio 1.5 INR International Normalized Ratio 1.55 Activated Partial Thromboplast Time 36.4 H Fibrinogen 497.0 H D-Dimer > 37115.00 H Lactic Acid Level 9.0 *H Phosphorus Level 5.8 H Magnesium Level 2.4 Creatine Kinase 74 Creatine Kinase Index 1.3 Creatinine Kinase MB (Mass) 0.94 Troponin I 0.312 *H Amylase Level 95 Lipase 61 Bedside Glucose 461 *H Blood Gas Specimen Source Blood arterial Arterial Blood Date Drawn 03/18/2017 10:00:32 AM Arterial Blood pH (Temp corrected) 7.235 *L Arterial Blood pCO2 (Temp correct) 61.6 H Arterial Blood pO2 (Temp corrected) 72.3 L Arterial Blood HCO3 25.5 Arterial Blood Base Excess -2.5 Arterial Blood Oxygen Saturation 88.7 L Stanford Test N/A Arterial Blood Gas Puncture Site Right Brachial Arterial Blood Carboxyhemoglobin 0.2 Arterial Blood Methemoglobin 0.6 Blood Gas A-a O2 Differential 579.1 H Oxyhemoglobin Percent 88.0 L Total Hemoglobin 10.2 L Blood Gas Temperature 37.0 Blood Gas Respiration Rate 16.0 Blood Gas Actual Respiration Rate 17 Blood Gas Modality VENT - AC FiO2 100.0 Blood Gas Tidal Volume 550.0 Blood Gas Low PEEP Setting 5.0 Blood Gas Critical Value Read Back DR DYE Blood Gas Notified Whom TM Blood Gas Notified Time 03/18/2017 10:09:28 AM Test 03/18/17 10:03 03/18/17 10:05 03/18/17 10:20 03/18/17 13:54 Bedside Glucose 364 H 363 H Urine Color EDIE Urine Clarity CLOUDY A Urine pH 6.0 Urine Specific [place] 1.014 Urine Ketones NEGATIVE Urine Nitrite NEGATIVE Urine Bilirubin NEGATIVE Urine Urobilinogen 2+ H Urine Leukocyte Esterase NEGATIVE Urine Microscopic RBC 30 H Urine Microscopic WBC 59 H Urine Amorphous Crystals FEW A Urine Bacteria FEW A Urine Granular Casts FEW A Urine Mucus FEW A Urine Yeast (Budding) MANY A Urine Hemoglobin 1+ H Urine Glucose 3+ H Urine Total Protein 2+ H Lactic Acid Level 5.8 *H Test 03/18/17 14:27 03/18/17 14:30 03/18/17 15:04 Blood Gas Specimen Source Blood arterial Arterial Blood Date Drawn 03/18/2017 3:00:26 PM Arterial Blood pH (Temp corrected) 7.387 Arterial Blood pCO2 (Temp correct) 39.5 Arterial Blood pO2 (Temp corrected) 79.0 L Arterial Blood HCO3 23.6 Arterial Blood Base Excess -1.7 Arterial Blood Oxygen Saturation 96.1 Stanford Test ACCEPTAB Arterial Blood Gas Puncture Site Right Brachial Arterial Blood Carboxyhemoglobin 0 Arterial Blood Methemoglobin 0.3 Blood Gas A-a O2 Differential 126.0 H Oxyhemoglobin Percent 95.8 Total Hemoglobin 11.3 L Blood Gas Temperature 35.4 Blood Gas Respiration Rate 18.0 Blood Gas Actual Respiration Rate 18 Blood Gas Modality VENT - AC FiO2 35.0 Blood Gas Tidal Volume 550.0 Blood Gas Low PEEP Setting 5.0 Blood Gas Notified Whom MDA Blood Gas Notified Time 03/18/2017 3:03:58 PM Prothrombin Time 19.1 H Prothrombin Time Ratio 1.5 INR International Normalized Ratio 1.59 Activated Partial Thromboplast Time 35.4 H Bedside Glucose 177 Medications Medications Current Medications Ondansetron HCl (Zofran Inj) 4 mg Q6H PRN IV NAUSEA AND/OR VOMITING; Start 03/18 at 10:30 Acetaminophen (Tylenol Tab) 650 mg Q6H PRN PO PAIN LEVEL 1-3 OR FEVER; Start at 10:30 Acetaminophen/ Hydrocodone Bitart ([place] (5/325)) 1 tab Q6H PRN PO MODERATE PAIN LEVEL 4-6; Start 03/18/17 at 10:30 Morphine Sulfate (morphine) 2 mg Q4H PRN IV SEVERE PAIN LEVEL 7-10; Start at 10:30 Docusate Sodium (Colace) 100 mg Q12H PRN PO CONSTIPATION; Start 03/18/17 at 10: 30 Magnesium Hydroxide (Milk Of Mag) 30 ml DAILY PRN PO CONSTIPATION; Start at 10:30 Sodium Biphosphate/ Sodium Phosphate (Fleet Enema) 133 ml DAILY PRN [place] CONSTIPATION; Start 03/18/17 at 10:30 Famotidine (Pepcid Iv) 20 mg HS IV ; Start 03/18/17 at 21:00 Lorazepam (Ativan) 0.5 mg Q6H PRN IV ANXIETY; Start 03/18/17 at 10:30 Vancomycin HCl (Vanco Iv Per Pharmacy) VANCOMYCIN PER PHARMACY NOTE XX ; Start 03/18/17 at 10:30 Hydralazine HCl (Apresoline) 10 mg Q6H PRN IV ELEVATED BLOOD PRESSURE; Start at 10:30 Nitroglycerin (Nitroglycerin (Sl Tab) 0.4 Mg) 1 tab Q5M PRN SL ANGINA; Start at 10:30 Diagnostic Test (Pha) (Accu-Chek) 1 ea Q1H XX ; Start 03/18/17 at 10:30 Dextrose (D50w Syringe) 25 ml Q15M PRN IV Till BS 80 mg/dL or above x2; Start 03/18/17 at 10:30 Dextrose 50 ml 50 ml Q15M PRN IV Till BS 80 mg/dL or above x2; Start 03/18/17 at 10:30 Vecuronium [place] 100 mg/ Dextrose 100 ml @ 4.5 mls/hr [id number] ONCE IV ; Start 03/18/17 at 10:42; Stop 03/19/17 at 08:55 Midazolam HCl 50 ml @ 2 mls/hr ONCE IV Last administered on 03/18/17 11:58; Admin Dose 2 MLS/HR; Start 03/18/17 at 11:30 Vancomycin HCl 1.25 gm/Sodium Chloride 250 ml @ 83.333 mls/ hr Q24H IVPB ; Start 03/19/17 at 12:30 Cefepime HCl 50 ml @ 100 mls/hr Q12 IVPB Last administered on 03/18/17 13:37; Admin Dose 100 MLS/HR; Start 03/18/17 at 12:00 Dextrose (D5W) 1,000 ml @ 200 mls/hr Q5H IV Last administered on 03/18/17 15: 11; Admin Dose 200 MLS/HR; Start 03/18/17 at 14:30 Acetaminophen (Tylenol Supp) 650 mg Q4H PRN [place] TEMP > 37C; Start 03/18/17 at 14: 30; Status UNV Acetaminophen (Tylenol Liquid) 650 mg Q4H PRN PO TEMP > 37C; Start 03/18/17 at 14:30; Status UNV Acetaminophen (Tylenol Supp) 500 mg Q6H [place] ; Start 03/19/17 at 14:30; Status UNV Acetaminophen (Tylenol Liquid) 500 mg Q6H PO ; Start 03/19/17 at 14:30; Status UNV Meperidine HCl (Demerol) 12.5 mg Q4H PRN IV POST OPERATIVE SHIVERING; Start 03/18/17 at 14:30; Status UNV Meperidine HCl (Demerol) 25 mg Q4H PRN IV POST OPERATIVE SHIVERING; Start at 14:30; Status UNV Eye Lubricant (Akwa Oint) 1 applic Q6 BOTH EYES ; Start 03/18/17 at 18:00; Status UNV Eye Lubricant (Artificial Tears Oph) 2 drop Q6 BOTH EYES ; Start 03/18/17 at 18: 00; Status UNV Miscellaneous Information (* Miscellaneous Pharmacy Order) Discontinue all previ... PROTOCOL ONCE XX ; Start 03/18/17 at 14:30; Stop 03/18/17 at 14:31; Status UNV Diagnostic Test (Pha) (Accu-Chek) 1 ea Q1H XX ; Start 03/18/17 at 14:30; Status UNV Dextrose (D50w Syringe) 25 ml Q15M PRN IV Till BS 80 mg/dL or above x2; Start 03/18/17 at 14:30; Status UNV Dextrose (D50w Syringe) 50 ml Q15M PRN IV Till BS 80 mg/dL or above x2; Start 03/18/17 at 14:30; Status UNV HARDIK CAMPBELL MD Mar 18, 2017 15:41
--- NOTE | 2017-03-18 15:50 | HP ---
Date/Time of Note Date/Time of Note DATE: 03/18/17 TIME: 15:35 Assessment/Plan VTE Prophylaxis VTE Prophylaxis Intervention: SCD's Assessment/Plan Chief Complaint/Hosp Course Assessment and plan: 71-year-old male past medical history of traumatic brain injury, Seizure disorder, Coronary artery disease, Atrial ablation, Hypertension , History of hydrocephalus, History of depression, who presented with fever, altered mental status, hypoxia, cardiac arrest, now intubated and on pressors, with severe hypernatremia, signs of non-ST elevation SD, and possible aspiration pneumonia 1. Cardiac arrest: Again patient is intubated, seen by cardiology team, on pressor support. Again, he has signs of non-ST elevation SD as well. -Follow-up echocardiogram, admit to ICU, follow cardiology recommendations. Continue hypothermia protocol. Trend the troponins. 2. Respiratory failure: Again likely secondary to #1. Also with signs of aspiration pneumonia. Non-ST elevation SD as well. -Continue broad-spectrum metabolic's, duo nebs as needed, follow pulmonary recommendations for vent management 3. Severe hypernatremia. Likely has severe intravascular volume depletion - will get renal consult, continue D5W at 200 cc an hour, monitor BMP every 4 hours for now, free water as well 4. Shock: Likely septic given his fevers. Could be cardiogenic component as well given his arrest. -Pressor support, elevated lactic acid is present so trend that, aggressive IV fluid hydration, follow culture results, labs in the morning. 5. Hx of TBI -monitor for now 6. Anxiety/depression: Monitor for now 7. GI prophylaxis: H2 dereck Problems: HPI/ROS Admit Date/Time Admit Date/Time ROS 71-year-old male with past medical history based on ER documentation of traumatic brain injury, seizure disorder, respiratory failure, atrial fibrillation, hypertension, hydrocephalus, peripheral vascular disease, rheumatoid arthritis, coronary artery disease, anxiety, depression and anemia. He presented to the emergency department via rescue ambulance for evaluation of altered mental status and hypoxia. Per records, [facility] because the patient was hypoxic with O2 saturation in the 70s despite 15 L of supplemental oxygen. When paramedics arrived they were informed that the patient has been unresponsive for approximately 5 minutes. He was transported to the ED and on arrival in the driveway became pulseless and apneic. He was also found with fever of 103.6, bradycardic, and very hypotensive initially. He was intubated and had return of spontaneous circulation. Per records, the patient's most recent admission 02/05/2017 to [facility] for sepsis due to pneumonia, urinary tract infection and acute respiratory failure. Full review of systems cannot be obtained at this time because the patient is intubated and sedated, presently on levophed as well. Also on hypothermia protocol presently. He was also found with significantly elevated serum sodium levels of 171. PMH/Family/Social Past Surgical History Past Surgical Hx: other (G-tube) Family History Significant Family History: other (Unknown) Social History Unknown Exam/Review of Systems Vital Signs Vitals Vital Signs Date Time Temp Pulse Resp B/P Pulse Ox O2 Delivery O2 Flow Rate FiO2 03/18/17 14:30 95.9 103 18 106/53 98 Mechanical Ventilator 03/18/17 07:35 100 Exam Exam Const: Apneic, pulseless, unresponsive, intubated Head: Atraumatic Eyes: Normal Conjunctiva ENT: Mucous membranes dry Neck: JVD Resp: No spontaneous respirations, decreased breath sounds with bag valve mask Cardio: Pulseless Abd: Soft, non tender, non distended. No masses Skin: Cyanotic noted in the left hand and partially in other extremities Back: No deformity Ext: Cyanotic, no edema Neur: Unresponsive, Carl Coma Scale 3 Labs Result Diagram: 03/18/17 0815 03/18/17 0745 Medications Medications Current Medications Ondansetron HCl (Zofran Inj) 4 mg Q6H PRN IV NAUSEA AND/OR VOMITING; Start 03/18 at 10:30 Acetaminophen (Tylenol Tab) 650 mg Q6H PRN PO PAIN LEVEL 1-3 OR FEVER; Start at 10:30 Acetaminophen/ Hydrocodone Bitart ([place] (5/325)) 1 tab Q6H PRN PO MODERATE PAIN LEVEL 4-6; Start 03/18/17 at 10:30 Morphine Sulfate (morphine) 2 mg Q4H PRN IV SEVERE PAIN LEVEL 7-10; Start at 10:30 Docusate Sodium (Colace) 100 mg Q12H PRN PO CONSTIPATION; Start 03/18/17 at 10: 30 Magnesium Hydroxide (Milk Of Mag) 30 ml DAILY PRN PO CONSTIPATION; Start at 10:30 Sodium Biphosphate/ Sodium Phosphate (Fleet Enema) 133 ml DAILY PRN [place] CONSTIPATION; Start 03/18/17 at 10:30 Famotidine (Pepcid Iv) 20 mg HS IV ; Start 03/18/17 at 21:00 Lorazepam (Ativan) 0.5 mg Q6H PRN IV ANXIETY; Start 03/18/17 at 10:30 Vancomycin HCl (Vanco Iv Per Pharmacy) VANCOMYCIN PER PHARMACY NOTE XX ; Start 03/18/17 at 10:30 Hydralazine HCl (Apresoline) 10 mg Q6H PRN IV ELEVATED BLOOD PRESSURE; Start at 10:30 Nitroglycerin (Nitroglycerin (Sl Tab) 0.4 Mg) 1 tab Q5M PRN [place] ANGINA; Start at 10:30 Diagnostic Test (Pha) (Accu-Chek) 1 ea Q1H XX ; Start 03/18/17 at 10:30 Dextrose (D50w Syringe) 25 ml Q15M PRN IV Till BS 80 mg/dL or above x2; Start 03/18/17 at 10:30 Dextrose 50 ml 50 ml Q15M PRN IV Till BS 80 mg/dL or above x2; Start 03/18/17 at 10:30 Vecuronium [place] 100 mg/ Dextrose 100 ml @ 4.5 mls/hr [id number] ONCE IV ; Start 03/18/17 at 10:42; Stop 03/19/17 at 08:55 Midazolam HCl 50 ml @ 2 mls/hr ONCE IV Last administered on 03/18/17 11:58; Admin Dose 2 MLS/HR; Start 03/18/17 at 11:30 Vancomycin HCl 1.25 gm/Sodium Chloride 250 ml @ 83.333 mls/ hr Q24H IVPB ; Start 03/19/17 at 12:30 Cefepime HCl 50 ml @ 100 mls/hr Q12 IVPB Last administered on 03/18/17 13:37; Admin Dose 100 MLS/HR; Start 03/18/17 at 12:00 Dextrose (D5W) 1,000 ml @ 200 mls/hr Q5H IV Last administered on 03/18/17 15: 11; Admin Dose 200 MLS/HR; Start 03/18/17 at 14:30 Acetaminophen (Tylenol Supp) 650 mg Q4H PRN [place] TEMP > 37C; Start 03/18/17 at 14: 30; Status UNV Acetaminophen (Tylenol Liquid) 650 mg Q4H PRN PO TEMP > 37C; Start 03/18/17 at 14:30; Status UNV Acetaminophen (Tylenol Supp) 500 mg Q6H [place] ; Start 03/19/17 at 14:30; Status UNV Acetaminophen (Tylenol Liquid) 500 mg Q6H PO ; Start 03/19/17 at 14:30; Status UNV Meperidine HCl (Demerol) 12.5 mg Q4H PRN IV POST OPERATIVE SHIVERING; Start 03/18/17 at 14:30; Status UNV Meperidine HCl (Demerol) 25 mg Q4H PRN IV POST OPERATIVE SHIVERING; Start at 14:30; Status UNV Eye Lubricant (Akwa Oint) 1 applic Q6 BOTH EYES ; Start 03/18/17 at 18:00; Status UNV Eye Lubricant (Artificial Tears Oph) 2 drop Q6 BOTH EYES ; Start 03/18/17 at 18: 00; Status UNV Miscellaneous Information (* Miscellaneous Pharmacy Order) Discontinue all previ... PROTOCOL ONCE XX ; Start 03/18/17 at 14:30; Stop 03/18/17 at 14:31; Status UNV Diagnostic Test (Pha) (Accu-Chek) 1 ea Q1H XX ; Start 03/18/17 at 14:30; Status UNV Dextrose (D50w Syringe) 25 ml Q15M PRN IV Till BS 80 mg/dL or above x2; Start 03/18/17 at 14:30; Status UNV Dextrose (D50w Syringe) 50 ml Q15M PRN IV Till BS 80 mg/dL or above x2; Start 03/18/17 at 14:30; Status UNV [facility] Mar 18, 2017 15:45
--- NOTE | 2017-03-18 16:15 | CONS ---
Date/Time of Note Date/Time of Note DATE: 03/18/17 TIME: 16:11 Consultation Date/Type/Reason Admit Date/Time Date of Consultation: Mar 18, 2017 Type of Consultation: ID Reason for Consultation Antibiotic manaement in patient s/p cardiac arrest, with history of traumatic brain damage. He's in septic and cardiogenic shock,on Vanco and cefepime. Psychological: other (sedated), No nl mood/affect Past Surgical History Past Surgical Hx: other (G-tube) Exam/Review of Systems Vital Signs Vitals Vital Signs Date Time Temp Pulse Resp B/P Pulse Ox O2 Delivery O2 Flow Rate FiO2 03/18/17 15:30 95.4 96 18 112/64 98 Mechanical Ventilator 03/18/17 07:35 100 Results Result Diagram: 03/18/17 0815 03/18/17 0745 Results 24 hrs Laboratory Tests Test 03/18/17 07:45 03/18/17 08:15 03/18/17 09:03 03/18/17 09:26 Sodium Level 171 *H Potassium Level 3.7 Chloride Level 125 H Carbon Dioxide Level 27 Anion Gap 23 H Blood Urea Nitrogen 54 H Creatinine 1.37 H Glucose Level 405 *H Calcium Level 7.4 L Total Bilirubin 0.0 L Direct Bilirubin 0.00 Indirect Bilirubin 0.0 Aspartate Amino Transf (AST/SGOT) 82 H Alanine Aminotransferase (ALT/SGPT) 89 H Alkaline Phosphatase 103 Total Protein 6.0 L Albumin 2.5 L Globulin 3.50 H Albumin/Globulin Ratio 0.71 White Blood Count 5.9 Red Blood Count 2.69 L Hemoglobin 7.8 L Hematocrit 27.7 L Mean Corpuscular Volume 103.0 H Mean Corpuscular Hemoglobin 29.0 Mean Corpuscular Hemoglobin Concent 28.2 L Red Cell Distribution Width 16.4 H Platelet Count 148 Mean Platelet Volume 14.0 H Neutrophils % 79.6 H Lymphocytes % 14.1 L Monocytes % 2.9 Eosinophils % 0.2 Basophils % 0.2 Nucleated Red Blood Cells % 0.5 H Neutrophils # 4.7 Lymphocytes # 0.8 Monocytes # 0.2 L Eosinophils # 0.0 Basophils # 0.0 Nucleated Red Blood Cells # 0.0 Prothrombin Time 18.7 H Prothrombin Time Ratio 1.5 INR International Normalized Ratio 1.55 Activated Partial Thromboplast Time 36.4 H Fibrinogen 497.0 H D-Dimer > 69411.00 H Lactic Acid Level 9.0 *H Phosphorus Level 5.8 H Magnesium Level 2.4 Creatine Kinase 74 Creatine Kinase Index 1.3 Creatinine Kinase MB (Mass) 0.94 Troponin I 0.312 *H Amylase Level 95 Lipase 61 Bedside Glucose 461 *H Blood Gas Specimen Source Blood arterial Arterial Blood Date Drawn 03/18/2017 10:00:32 AM Arterial Blood pH (Temp corrected) 7.235 *L Arterial Blood pCO2 (Temp correct) 61.6 H Arterial Blood pO2 (Temp corrected) 72.3 L Arterial Blood HCO3 25.5 Arterial Blood Base Excess -2.5 Arterial Blood Oxygen Saturation 88.7 L Stanford Test N/A Arterial Blood Gas Puncture Site Right Brachial Arterial Blood Carboxyhemoglobin 0.2 Arterial Blood Methemoglobin 0.6 Blood Gas A-a O2 Differential 579.1 H Oxyhemoglobin Percent 88.0 L Total Hemoglobin 10.2 L Blood Gas Temperature 37.0 Blood Gas Respiration Rate 16.0 Blood Gas Actual Respiration Rate 17 Blood Gas Modality VENT - AC FiO2 100.0 Blood Gas Tidal Volume 550.0 Blood Gas Low PEEP Setting 5.0 Blood Gas Critical Value Read Back DR DYE Blood Gas Notified Whom TM Blood Gas Notified Time 03/18/2017 10:09:28 AM Test 03/18/17 10:03 03/18/17 10:05 03/18/17 10:20 03/18/17 13:54 Bedside Glucose 364 H 363 H Urine Color EDIE Urine Clarity CLOUDY A Urine pH 6.0 Urine Specific [place] 1.014 Urine Ketones NEGATIVE Urine Nitrite NEGATIVE Urine Bilirubin NEGATIVE Urine Urobilinogen 2+ H Urine Leukocyte Esterase NEGATIVE Urine Microscopic RBC 30 H Urine Microscopic WBC 59 H Urine Amorphous Crystals FEW A Urine Bacteria FEW A Urine Granular Casts FEW A Urine Mucus FEW A Urine Yeast (Budding) MANY A Urine Hemoglobin 1+ H Urine Glucose 3+ H Urine Total Protein 2+ H Lactic Acid Level 5.8 *H Test 03/18/17 14:27 03/18/17 14:30 03/18/17 15:04 03/18/17 16:03 Blood Gas Specimen Source Blood arterial Arterial Blood Date Drawn 03/18/2017 3:00:26 PM Arterial Blood pH (Temp corrected) 7.387 Arterial Blood pCO2 (Temp correct) 39.5 Arterial Blood pO2 (Temp corrected) 79.0 L Arterial Blood HCO3 23.6 Arterial Blood Base Excess -1.7 Arterial Blood Oxygen Saturation 96.1 Stanford Test ACCEPTAB Arterial Blood Gas Puncture Site Right Brachial Arterial Blood Carboxyhemoglobin 0 Arterial Blood Methemoglobin 0.3 Blood Gas A-a O2 Differential 126.0 H Oxyhemoglobin Percent 95.8 Total Hemoglobin 11.3 L Blood Gas Temperature 35.4 Blood Gas Respiration Rate 18.0 Blood Gas Actual Respiration Rate 18 Blood Gas Modality VENT - AC FiO2 35.0 Blood Gas Tidal Volume 550.0 Blood Gas Low PEEP Setting 5.0 Blood Gas Notified Whom MDA Blood Gas Notified Time 03/18/2017 3:03:58 PM Prothrombin Time 19.1 H Prothrombin Time Ratio 1.5 INR International Normalized Ratio 1.59 Activated Partial Thromboplast Time 35.4 H Lactic Acid Level 4.8 *H Bedside Glucose 177 227 H Medications Medications Current Medications Ondansetron HCl (Zofran Inj) 4 mg Q6H PRN IV NAUSEA AND/OR VOMITING; Start 03/18 at 10:30 Acetaminophen (Tylenol Tab) 650 mg Q6H PRN PO PAIN LEVEL 1-3 OR FEVER; Start at 10:30 Acetaminophen/ Hydrocodone Bitart ([place] (5/325)) 1 tab Q6H PRN PO MODERATE PAIN LEVEL 4-6; Start 03/18/17 at 10:30 Morphine Sulfate (morphine) 2 mg Q4H PRN IV SEVERE PAIN LEVEL 7-10; Start at 10:30 Docusate Sodium (Colace) 100 mg Q12H PRN PO CONSTIPATION; Start 03/18/17 at 10: 30 Magnesium Hydroxide (Milk Of Mag) 30 ml DAILY PRN PO CONSTIPATION; Start at 10:30 Sodium Biphosphate/ Sodium Phosphate (Fleet Enema) 133 ml DAILY PRN [place] CONSTIPATION; Start 03/18/17 at 10:30 Famotidine (Pepcid Iv) 20 mg HS IV ; Start 03/18/17 at 21:00 Lorazepam (Ativan) 0.5 mg Q6H PRN IV ANXIETY; Start 03/18/17 at 10:30 Vancomycin HCl (Vanco Iv Per Pharmacy) VANCOMYCIN PER PHARMACY NOTE XX ; Start 03/18/17 at 10:30 Hydralazine HCl (Apresoline) 10 mg Q6H PRN IV ELEVATED BLOOD PRESSURE; Start at 10:30 Nitroglycerin (Nitroglycerin (Sl Tab) 0.4 Mg) 1 tab Q5M PRN SL ANGINA; Start at 10:30 Diagnostic Test (Pha) (Accu-Chek) 1 ea Q1H XX ; Start 03/18/17 at 10:30 Dextrose (D50w Syringe) 25 ml Q15M PRN IV Till BS 80 mg/dL or above x2; Start 03/18/17 at 10:30 Dextrose (D50w Syringe) 50 ml Q15M PRN IV Till BS 80 mg/dL or above x2; Start 03/18/17 at 10:30 Fentanyl 25 mcg 25 mcg Q10M PRN IV SEDATION Last administered on 03/18/17 11:33 ; Admin Dose 25 MCG; Start 03/18/17 at 11:00 Vecuronium [place] 100 mg/ Dextrose 100 ml @ 4.5 mls/hr [id number] ONCE IV ; Start 03/18/17 at 10:42; Stop 03/19/17 at 08:55 Midazolam HCl 50 ml @ 2 mls/hr ONCE IV Last administered on 03/18/17 11:58; Admin Dose 2 MLS/HR; Start 03/18/17 at 11:30 Vancomycin HCl 1.25 gm/Sodium Chloride 250 ml @ 83.333 mls/ hr Q24H IVPB ; Start 03/19/17 at 12:30 Cefepime HCl 50 ml @ 100 mls/hr Q12 IVPB Last administered on 03/18/17 13:37; Admin Dose 100 MLS/HR; Start 03/18/17 at 12:00 Dextrose (D5W) 1,000 ml @ 200 mls/hr Q5H IV Last administered on 03/18/17 15: 11; Admin Dose 200 MLS/HR; Start 03/18/17 at 14:30 Acetaminophen (Tylenol Supp) 650 mg Q4H PRN [place] TEMP > 37C; Start 03/18/17 at 14: 30; Status UNV Acetaminophen (Tylenol Liquid) 650 mg Q4H PRN PO TEMP > 37C; Start 03/18/17 at 14:30; Status UNV Acetaminophen (Tylenol Supp) 500 mg Q6H [place] ; Start 03/19/17 at 14:30; Status UNV Acetaminophen (Tylenol Liquid) 500 mg Q6H PO ; Start 03/19/17 at 14:30; Status UNV Meperidine HCl (Demerol) 12.5 mg Q4H PRN IV POST OPERATIVE SHIVERING; Start 03/18/17 at 14:30; Status UNV Meperidine HCl (Demerol) 25 mg Q4H PRN IV POST OPERATIVE SHIVERING; Start at 14:30; Status UNV Eye Lubricant (Akwa Oint) 1 applic Q6 BOTH EYES ; Start 03/18/17 at 18:00; Status UNV Eye Lubricant (Artificial Tears Oph) 2 drop Q6 BOTH EYES ; Start 03/18/17 at 18: 00; Status UNV Miscellaneous Information (* Miscellaneous Pharmacy Order) Discontinue all previ... PROTOCOL ONCE XX ; Start 03/18/17 at 14:30; Stop 03/18/17 at 14:31; Status UNV Diagnostic Test (Pha) (Accu-Chek) 1 ea Q1H XX ; Start 03/18/17 at 14:30; Status UNV Dextrose (D50w Syringe) 25 ml Q15M PRN IV Till BS 80 mg/dL or above x2; Start 03/18/17 at 14:30; Status UNV Dextrose (D50w Syringe) 50 ml Q15M PRN IV Till BS 80 mg/dL or above x2; Start 03/18/17 at 14:30; Status UNV MARY BROWN MD Mar 18, 2017 16:14
[2017-03-18 16:24] LABS: TROPONIN-I 0.845 ng/ml (0.00-0.12)
[2017-03-18 16:25] LABS: CK-MB 6.11 ng/ml (0.0-2.4)
[2017-03-18 19:06] LABS: CALCIUM 7.1 mg/dl (8.4-10.2); CREATININE 1.52 mg/dl (0.61-1.24); POTASSIUM 3.6 mmol/L (3.5-5.1)
[2017-03-18 19:24] LABS: CK-MB 8.54 ng/ml (0.0-2.4); TROPONIN-I 0.796 ng/ml (0.00-0.12)
[2017-03-18] MEDS: VASOPRESSIN 60 UNIT in DEXTROSE 5% 57 ML IV SCH (20:28)
[2017-03-18 20:43] LABS: Arterial Base Excess -0.2 mmol/L (-3.0-3); Arterial COHb 0 % (0.0-3.0); Arterial Fraction of Oxyhgb 96.2 % (93.0-99.0); Arterial HCO3 23.9 mmol/L (22.0-26.0); Arterial MetHb 0.3 % (0.0-1.5); Arterial Total Hemglobin 11.8 g/dl (12.0-18.0); MODE VENT - AC
[2017-03-18] MEDS: D5-0.2 NACL + KCL 20 MEQ 1,000 ML IV SCH (22:56)
[2017-03-18] MEDS: INSULIN HUMAN REGULAR 100 UNIT in SOD CHLORIDE 0.9% 99 ML IV SCH (23:26)
--- NOTE | 2017-03-18 23:48 | CONS ---
Date/Time of Note Date/Time of Note DATE: 03/18/17 TIME: 23:46 Assessment/Plan Assessment/Plan Chief Complaint/Hosp Course /P MARLENA HYPERNATREMIA CARDIAC ARREST [facility] DM PRE RENAL AZOTEMIA SEVERE DEHYDRATION PLAN IV FLUID Problems: Consultation Date/Type/Reason Admit Date/Time Initial Consult Date 03/18/17 Type of Consultation: RENAL [id number] HR Interval Summary Subjective hx not possible: pt non-verbal Exam/Review of Systems Vital Signs Vitals Vital Signs Date Time Temp Pulse Resp B/P Pulse Ox O2 Delivery O2 Flow Rate FiO2 03/18/17 22:45 91.3 68 18 110/65 100 Mechanical Ventilator 03/18/17 22:45 35 03/18/17 07:27 15 Exam Neck: supple Respiratory: diminished breath sounds Cardiovascular: regular rate and rhythm Gastrointestinal: bowel sounds (+), soft Musculoskeletal: nl extremities to inspection Extremities: edema (+) Results Result Diagram: 03/18/17 0815 03/18/17 1840 Results 24 hrs Laboratory Tests Test 03/18/17 07:45 03/18/17 08:15 03/18/17 09:03 03/18/17 09:26 Sodium Level 171 *H Potassium Level 3.7 Chloride Level 125 H Carbon Dioxide Level 27 Anion Gap 23 H Blood Urea Nitrogen 54 H Creatinine 1.37 H Glucose Level 405 *H Calcium Level 7.4 L Total Bilirubin 0.0 L Direct Bilirubin 0.00 Indirect Bilirubin 0.0 Aspartate Amino Transf (AST/SGOT) 82 H Alanine Aminotransferase (ALT/SGPT) 89 H Alkaline Phosphatase 103 Total Protein 6.0 L Albumin 2.5 L Globulin 3.50 H Albumin/Globulin Ratio 0.71 White Blood Count 5.9 Red Blood Count 2.69 L Hemoglobin 7.8 L Hematocrit 27.7 L Mean Corpuscular Volume 103.0 H Mean Corpuscular Hemoglobin 29.0 Mean Corpuscular Hemoglobin Concent 28.2 L Red Cell Distribution Width 16.4 H Platelet Count 148 Mean Platelet Volume 14.0 H Neutrophils % 79.6 H Lymphocytes % 14.1 L Monocytes % 2.9 Eosinophils % 0.2 Basophils % 0.2 Nucleated Red Blood Cells % 0.5 H Neutrophils # 4.7 Lymphocytes # 0.8 Monocytes # 0.2 L Eosinophils # 0.0 Basophils # 0.0 Nucleated Red Blood Cells # 0.0 Prothrombin Time 18.7 H Prothrombin Time Ratio 1.5 INR International Normalized Ratio 1.55 Activated Partial Thromboplast Time 36.4 H Fibrinogen 497.0 H D-Dimer > 92420.00 H Lactic Acid Level 9.0 *H Phosphorus Level 5.8 H Magnesium Level 2.4 Creatine Kinase 74 Creatine Kinase Index 1.3 Creatinine Kinase MB (Mass) 0.94 Troponin I 0.312 *H Amylase Level 95 Lipase 61 Bedside Glucose 461 *H Blood Gas Specimen Source Blood arterial Arterial Blood Date Drawn 03/18/2017 10:00:32 AM Arterial Blood pH (Temp corrected) 7.235 *L Arterial Blood pCO2 (Temp correct) 61.6 H Arterial Blood pO2 (Temp corrected) 72.3 L Arterial Blood HCO3 25.5 Arterial Blood Base Excess -2.5 Arterial Blood Oxygen Saturation 88.7 L Stanford Test N/A Arterial Blood Gas Puncture Site Right Brachial Arterial Blood Carboxyhemoglobin 0.2 Arterial Blood Methemoglobin 0.6 Blood Gas A-a O2 Differential 579.1 H Oxyhemoglobin Percent 88.0 L Total Hemoglobin 10.2 L Blood Gas Temperature 37.0 Blood Gas Respiration Rate 16.0 Blood Gas Actual Respiration Rate 17 Blood Gas Modality VENT - AC FiO2 100.0 Blood Gas Tidal Volume 550.0 Blood Gas Low PEEP Setting 5.0 Blood Gas Critical Value Read Back DR DYE Blood Gas Notified Whom TM Blood Gas Notified Time 03/18/2017 10:09:28 AM Test 03/18/17 10:03 03/18/17 10:05 03/18/17 10:20 03/18/17 13:54 Bedside Glucose 364 H 363 H Urine Color EDIE Urine Clarity CLOUDY A Urine pH 6.0 Urine Specific [place] 1.014 Urine Ketones NEGATIVE Urine Nitrite NEGATIVE Urine Bilirubin NEGATIVE Urine Urobilinogen 2+ H Urine Leukocyte Esterase NEGATIVE Urine Microscopic RBC 30 H Urine Microscopic WBC 59 H Urine Amorphous Crystals FEW A Urine Bacteria FEW A Urine Granular Casts FEW A Urine Mucus FEW A Urine Yeast (Budding) MANY A Urine Hemoglobin 1+ H Urine Glucose 3+ H Urine Total Protein 2+ H Osmolality 376 H Lactic Acid Level 5.8 *H Test 03/18/17 14:27 03/18/17 14:30 03/18/17 15:04 03/18/17 16:03 Blood Gas Specimen Source Blood arterial Arterial Blood Date Drawn 03/18/2017 3:00:26 PM Arterial Blood pH (Temp corrected) 7.387 Arterial Blood pCO2 (Temp correct) 39.5 Arterial Blood pO2 (Temp corrected) 79.0 L Arterial Blood HCO3 23.6 Arterial Blood Base Excess -1.7 Arterial Blood Oxygen Saturation 96.1 Stanford Test ACCEPTAB Arterial Blood Gas Puncture Site Right Brachial Arterial Blood Carboxyhemoglobin 0 Arterial Blood Methemoglobin 0.3 Blood Gas A-a O2 Differential 126.0 H Oxyhemoglobin Percent 95.8 Total Hemoglobin 11.3 L Blood Gas Temperature 35.4 Blood Gas Respiration Rate 18.0 Blood Gas Actual Respiration Rate 18 Blood Gas Modality VENT - AC FiO2 35.0 Blood Gas Tidal Volume 550.0 Blood Gas Low PEEP Setting 5.0 Blood Gas Notified Whom MDA Blood Gas Notified Time 03/18/2017 3:03:58 PM Prothrombin Time 19.1 H Prothrombin Time Ratio 1.5 INR International Normalized Ratio 1.59 Activated Partial Thromboplast Time 35.4 H Lactic Acid Level 4.8 *H Creatine Kinase 208 H Creatine Kinase Index 2.9 Creatinine Kinase MB (Mass) 6.11 H Troponin I 0.845 *H Free Thyroxine 1.22 Bedside Glucose 177 227 H Test 03/18/17 18:40 03/18/17 20:27 03/18/17 22:00 03/18/17 22:59 Sodium Level 165 *H Potassium Level 3.6 Chloride Level 123 H Carbon Dioxide Level 26 Anion Gap 20 H Blood Urea Nitrogen 56 H Creatinine 1.52 H Glucose Level 249 #H Lactic Acid Level 4.5 *H Calcium Level 7.1 L Creatine Kinase 292 H Creatine Kinase Index 2.9 Creatinine Kinase MB (Mass) 8.54 H Troponin I 0.796 *H Blood Gas Specimen Source Blood arterial Arterial Blood Date Drawn 03/18/2017 8:30:45 PM Arterial Blood pH (Temp corrected) 7.467 H Arterial Blood pCO2 (Temp correct) 33.0 L Arterial Blood pO2 (Temp corrected) 71.6 L Arterial Blood HCO3 23.9 Arterial Blood Base Excess -0.2 Arterial Blood Oxygen Saturation 96.5 Stanford Test N/A Arterial Blood Gas Puncture Site Right Brachial Arterial Blood Carboxyhemoglobin 0 Arterial Blood Methemoglobin 0.3 Blood Gas A-a O2 Differential 142.0 H Oxyhemoglobin Percent 96.2 Total Hemoglobin 11.8 L Blood Gas Temperature 34.2 Blood Gas Respiration Rate 18.0 Blood Gas Actual Respiration Rate 18 Blood Gas Modality VENT - AC FiO2 35.0 Blood Gas Tidal Volume 550.0 Blood Gas Low PEEP Setting 5.0 Blood Gas Inspiratory Pressure 25.0 Blood Gas Notified Whom AA Blood Gas Notified Time 03/18/2017 8:43:45 PM Urine Random Sodium 15 L Bedside Glucose 270 H Medications Medications Current Medications Ondansetron HCl (Zofran Inj) 4 mg Q6H PRN IV NAUSEA AND/OR VOMITING; Start 03/18 at 10:30 Acetaminophen (Tylenol Tab) 650 mg Q6H PRN PO PAIN LEVEL 1-3 OR FEVER; Start at 10:30 Acetaminophen/ Hydrocodone Bitart (Kunia (5/325)) 1 tab Q6H PRN PO MODERATE PAIN LEVEL 4-6; Start 03/18/17 at 10:30 Morphine Sulfate (morphine) 2 mg Q4H PRN IV SEVERE PAIN LEVEL 7-10; Start at 10:30 Docusate Sodium (Colace) 100 mg Q12H PRN PO CONSTIPATION; Start 03/18/17 at 10: 30 Magnesium Hydroxide (Milk Of Mag) 30 ml DAILY PRN PO CONSTIPATION; Start at 10:30 Sodium Biphosphate/ Sodium Phosphate (Fleet Enema) 133 ml DAILY PRN PA CONSTIPATION; Start 03/18/17 at 10:30 Famotidine (Pepcid Iv) 20 mg HS IV ; Start 03/18/17 at 21:00 Lorazepam (Ativan) 0.5 mg Q6H PRN IV ANXIETY; Start 03/18/17 at 10:30 Vancomycin HCl (Vanco Iv Per Pharmacy) VANCOMYCIN PER PHARMACY NOTE XX ; Start 03/18/17 at 10:30 Hydralazine HCl (Apresoline) 10 mg Q6H PRN IV ELEVATED BLOOD PRESSURE; Start at 10:30 Nitroglycerin (Nitroglycerin (Sl Tab) 0.4 Mg) 1 tab Q5M PRN SL ANGINA; Start at 10:30 Dextrose (D50w Syringe) 25 ml Q15M PRN IV Till BS 80 mg/dL or above x2; Start 03/18/17 at 10:30 Dextrose (D50w Syringe) 50 ml Q15M PRN IV Till BS 80 mg/dL or above x2; Start 03/18/17 at 10:30 Fentanyl 25 mcg 25 mcg Q10M PRN IV SEDATION Last administered on 03/18/17 11:33 ; Admin Dose 25 MCG; Start 03/18/17 at 11:00 Vecuronium [place] 100 mg/ Dextrose 100 ml @ 4.5 mls/hr [id number] ONCE IV ; Start 03/18/17 at 10:42; Stop 03/19/17 at 08:55 Midazolam HCl 50 ml @ 2 mls/hr ONCE IV Last administered on 03/18/17 11:58; Admin Dose 2 MLS/HR; Start 03/18/17 at 11:30 Vancomycin HCl 1.25 gm/Sodium Chloride 250 ml @ 83.333 mls/ hr Q24H IVPB ; Start 03/19/17 at 12:30 Cefepime HCl (Maxipime 2gm/50 ml (Pmx)) 50 ml @ 100 mls/hr Q12 IVPB Last administered on 03/18/17 13:37; Admin Dose 100 MLS/HR; Start 03/18/17 at 12:00 Acetaminophen (Tylenol Supp) 650 mg Q4H PRN PA TEMP > 37C Last administered on 03/18/17 19:08; Admin Dose 650 MG; Start 03/18/17 at 14:30 Acetaminophen (Tylenol Liquid) 650 mg Q4H PRN PO TEMP > 37C; Start 03/18/17 at 14:30 Acetaminophen (Tylenol Supp) 500 mg Q6H PA ; Start 03/19/17 at 14:30 Acetaminophen (Tylenol Liquid) 500 mg Q6H PO ; Start 03/19/17 at 14:30 Meperidine HCl (Demerol) 12.5 mg Q4H PRN IV POST OPERATIVE SHIVERING; Start 03/18/17 at 14:30 Meperidine HCl (Demerol) 25 mg Q4H PRN IV POST OPERATIVE SHIVERING; Start at 14:30 Eye Lubricant (Akwa Oint) 1 applic Q6 BOTH EYES ; Start 03/18/17 at 18:00 Eye Lubricant (Artificial Tears Oph) 2 drop Q6 BOTH EYES ; Start 03/18/17 at 18: 00 Diagnostic Test (Pha) (Accu-Chek) 1 ea Q1H XX ; Start 03/18/17 at 14:30 Dextrose (D50w Syringe) 25 ml Q15M PRN IV Till BS 80 mg/dL or above x2; Start 03/18/17 at 14:30 Dextrose 50 ml 50 ml Q15M PRN IV Till BS 80 mg/dL or above x2; Start 03/18/17 at 14:30 Vasopressin 60 unit/Dextrose 60 ml @ 1.2 mls/hr Q12H IV Last administered on 20:28; Admin Dose 1.2 MLS/HR; Start 03/18/17 at 20:00 Potassium Chloride/Dextrose/ Sod Cl (D5-1/4ns + KCl 20 Meq) 1,000 ml @ 80 mls/ hr [id number] IV Last administered on 03/18/17 22:56; Admin Dose 80 MLS/HR; Start 03/18/17 at 20:00 LOUISE PURVIS MD Mar 18, 2017 23:48
[2017-03-19] VITALS (59 sets, daily range): BP systolic 87–159; BP diastolic 56–113; PULSE 69–98; RESP 8–24; TEMP 91.2
[2017-03-19] MEDS: ACCU-CHEK XX SCH ×16 (01:00→23:30)
[2017-03-19 02:57] LABS: AADO2 Arterial 130.3 mmHg (7.0-24.0); Arterial Base Excess -3.6 mmol/L (-3.0-3); Arterial COHb 0.3 % (0.0-3.0); Arterial Fraction of Oxyhgb 97.5 % (93.0-99.0); Arterial HCO3 20.8 mmol/L (22.0-26.0); Arterial MetHb 0.2 % (0.0-1.5); Arterial Total Hemglobin 11.6 g/dl (12.0-18.0); MODE VENT - AC
--- NOTE | 2017-03-19 05:40 | CONS ---
DATE OF ADMISSION: 03/18/2017 DATE OF CONSULTATION: 03/18/2017 Infectious Disease consultation REASON FOR CONSULTATION: Antibiotic management. Diaz Jones is an unfortunate 71-year-old, male with numerous problems, who comes in with sepsis and is being seen for antibiotic management. His past problems include: 1. Traumatic brain injury. 2. Seizure disorders. 3. Respiratory failure. 4. Atrial fibrillation. 5. Hypertension. 6. Hydrocephalus. 7. Peripheral vascular disease. 8. Rheumatoid arthritis. 9. Coronary artery disease. 10. Anxiety and depression. 11. Anemia of chronic disease. Acutely, the patient was brought in by rescue ambulance for altered mental status and hypoxemia. He resides in a long term facility. His O2 sats were in the 70s despite 15 L of supplemental oxygen. He is unresponsive for at least 5 minutes. He became pulseless and apneic, had a fever of 103.6, bradycardic. He was intubated and had return of spontaneous circulation. The patient was recently hospitalized at [facility] for pneumonia, urinary tract infection and acute respiratory failure. His problems include those as noted. He had a cardiac arrest, is intubated and is on pressor support. He has signs of non ST elevation NM as well. He is on hypothermia protocol and his troponins are being evaluated. He has respiratory failure with signs of aspiration pneumonia, severe hyponatremia with a sodium of 171, and as noted he had a temperature of 103.6. He is in shock, either cardiogenic or septic and currently is on vancomycin and cefepime. A chest x-ray shows a new endotracheal tube in appropriate position, extensive patchy bilateral upper lobe and lower lobe infiltrates and small left pleural effusion. He also has a right-sided [employer] shunt in place. PAST SURGICAL HISTORY: Operations as outlined. Status post G- tube placement. FAMILY HISTORY: Noncontributory. SOCIAL HISTORY: He does not smoke, drink, or abuse drugs. ALLERGIES: NONE TO PENICILLIN, SULFA, OR FOODS. MEDICATION: Per chart. REVIEW OF SYSTEMS: As per HPI. PHYSICAL EXAMINATION: GENERAL APPEARANCE: Patient is an obtunded male who is apneic, unresponsive and intubated. SKIN: Without generalized rash. He has some cyanosis of the left hand as well as in other extremities. HEENT: He has an ET tube. NECK: Movable. Lymph nodes nonpalpable. CHEST: Decreased breath sounds at the bases with occasional rhonchi. HEART: Without murmur or gallop. ABDOMEN: Soft, nontender, without organomegaly or splenomegaly or masses. EXTREMITIES: Without cyanosis, clubbing, or edema. RECTAL/GENITAL: Exam is deferred. NEUROLOGIC: Neurological evaluation: Patient is obtunded on respirator, unable to evaluate his neurological status. He is on pressors as well. PLAN: We will continue him on vancomycin and cefepime. His prognosis is dismal. I will dictate my findings to the hospitalist and to Dr. Krueger. Dictated By: Jose Fountain MD JD/farrukh/nathanael /Document#: [id number]
[2017-03-19 05:47] LABS: ABNORMAL IP MESSAGE 1; HEMATOCRIT 35.2 % (42.0-52.0); HEMOGLOBIN 10.1 g/dl (14.0-18.0); MEAN CORPUSCULAR HEMOGLOBIN 27.8 pg (29.0-33.0); MEAN CORPUSCULAR HGB CONC 28.7 g/dl (32.0-37.0); MEAN PLATELET VOLUME 13.3 fl (7.4-10.4); PLATELET COUNT 155 10^3/UL (140-415); POSITIVE DIFF @See below; RED BLOOD COUNT 3.63 10^6/ul (4.70-6.10); RED CELL DISTRIBUTION WIDTH 15.8 % (11.5-14.5); WHITE BLOOD COUNT 7.5 10^3/ul (4.8-10.8)
[2017-03-19] MEDS: OCULAR LUBRICANT 3.5 GM OPH OINT BOTH EYES SCH ×4 (06:00→23:59)
[2017-03-19 06:07] LABS: ALBUMIN 2.8 g/dl (3.3-4.9); ALBUMIN/GLOBULIN RATIO 0.71; BILIRUBIN,INDIRECT 0.2 mg/dl (0-1.1); BILIRUBIN,TOTAL 0.2 mg/dl (0.2-1.3); CALCIUM 7.1 mg/dl (8.4-10.2); CREATININE 1.59 mg/dl (0.61-1.24); POTASSIUM 3.5 mmol/L (3.5-5.1); TOTAL PROTEIN 6.7 g/dl (6.1-8.1)
[2017-03-19 06:17] LABS: CALCIUM 7.1 mg/dl (8.4-10.2); CREATININE 1.59 mg/dl (0.61-1.24); MAGNESIUM 2.3 mg/dl (1.7-2.5); PHOSPHORUS 3.8 mg/dl (2.5-4.9); POTASSIUM 3.5 mmol/L (3.5-5.1)
[2017-03-19 07:01] LABS: CHOL/HDL RATIO 4.7 RATIO
--- NOTE | 2017-03-19 07:17 | CONS ---
Date/Time of Note Date/Time of Note DATE: 03/19/17 TIME: 07:07 Assessment/Plan Assessment/Plan Additional Assessment/Plan I will contact family members today and try and set up a family conference as soon as possible to establish goals of care. Most important issue at this time is patient's baseline cognitive condition and overall medical condition prior to this catastrophic event. Currently have an incomplete database insofar as patient's social condition decision-maker for patient, paperwork such as advanced directive or DURABLE POWER OF INSPECTOR PLUMBING for healthcare or POLST form. We will ask case management to contact the alf unit and assist in finding any additional information concerning goals of care. Patient estimated prognosis based on just the information presently is extremely poor. Family conference will be arranged as soon as possible. Consultation Date/Type/Reason Admit Date/Time Date of Consultation: Mar 19, 2017 Type of Consultation: Palliative care Hx of Present Illness 71-year-old man status post cardiac arrest, currently on hypothermia evaluating the emergency room by cardiology for early signs of non-ST myocardial infarction. Patiently currently intubated still in the ED and there are no family members available. Patient apparently has a complicated past medical history of traumatic brain injury and a seizure disorder in reviewing patient's medical records. Other comorbid major medical problems including history of coronary heart disease status post atrial ablation. What is not known at this time is patient's baseline cognitive abilities in light of the fact that he lives in a alf facility with at least by documentation brain injury. Patient is being admitted to the intensive care unit [facility] in critical condition and shock. Psychological: other (sedated), No nl mood/affect Past Surgical History Past Surgical Hx: other (G-tube) Social History Smoking Status: Unknown if ever smoked Exam/Review of Systems Vital Signs Vitals Vital Signs Date Time Temp Pulse Resp B/P Pulse Ox O2 Delivery O2 Flow Rate FiO2 03/19/17 05:45 91.4 82 18 100/72 100 Mechanical Ventilator 03/19/17 05:00 35 03/18/17 07:27 15 Exam Constitutional: other (Sedated, para) Respiratory: clear to auscultation, normal air movement Cardiovascular: nl pulses, regular rate and rhythm Results Result Diagram: 03/19/17 0526 03/19/17525 Results 24 hrs Laboratory Tests Test 03/18/17 07:45 03/18/17 08:15 03/18/17 09:03 03/18/17 09:26 Sodium Level 171 *H Potassium Level 3.7 Chloride Level 125 H Carbon Dioxide Level 27 Anion Gap 23 H Blood Urea Nitrogen 54 H Creatinine 1.37 H Glucose Level 405 *H Calcium Level 7.4 L Total Bilirubin 0.0 L Direct Bilirubin 0.00 Indirect Bilirubin 0.0 Aspartate Amino Transf (AST/SGOT) 82 H Alanine Aminotransferase (ALT/SGPT) 89 H Alkaline Phosphatase 103 Total Protein 6.0 L Albumin 2.5 L Globulin 3.50 H Albumin/Globulin Ratio 0.71 White Blood Count 5.9 Red Blood Count 2.69 L Hemoglobin 7.8 L Hematocrit 27.7 L Mean Corpuscular Volume 103.0 H Mean Corpuscular Hemoglobin 29.0 Mean Corpuscular Hemoglobin Concent 28.2 L Red Cell Distribution Width 16.4 H Platelet Count 148 Mean Platelet Volume 14.0 H Neutrophils % 79.6 H Lymphocytes % 14.1 L Monocytes % 2.9 Eosinophils % 0.2 Basophils % 0.2 Nucleated Red Blood Cells % 0.5 H Neutrophils # 4.7 Lymphocytes # 0.8 Monocytes # 0.2 L Eosinophils # 0.0 Basophils # 0.0 Nucleated Red Blood Cells # 0.0 Prothrombin Time 18.7 H Prothrombin Time Ratio 1.5 INR International Normalized Ratio 1.55 Activated Partial Thromboplast Time 36.4 H Fibrinogen 497.0 H D-Dimer > 45429.00 H Lactic Acid Level 9.0 *H Phosphorus Level 5.8 H Magnesium Level 2.4 Creatine Kinase 74 Creatine Kinase Index 1.3 Creatinine Kinase MB (Mass) 0.94 Troponin I 0.312 *H Amylase Level 95 Lipase 61 Bedside Glucose 461 *H Blood Gas Specimen Source Blood arterial Arterial Blood Date Drawn 03/18/2017 10:00:32 AM Arterial Blood pH (Temp corrected) 7.235 *L Arterial Blood pCO2 (Temp correct) 61.6 H Arterial Blood pO2 (Temp corrected) 72.3 L Arterial Blood HCO3 25.5 Arterial Blood Base Excess -2.5 Arterial Blood Oxygen Saturation 88.7 L Stanford Test N/A Arterial Blood Gas Puncture Site Right Brachial Arterial Blood Carboxyhemoglobin 0.2 Arterial Blood Methemoglobin 0.6 Blood Gas A-a O2 Differential 579.1 H Oxyhemoglobin Percent 88.0 L Total Hemoglobin 10.2 L Blood Gas Temperature 37.0 Blood Gas Respiration Rate 16.0 Blood Gas Actual Respiration Rate 17 Blood Gas Modality VENT - AC FiO2 100.0 Blood Gas Tidal Volume 550.0 Blood Gas Low PEEP Setting 5.0 Blood Gas Critical Value Read Back DR DYE Blood Gas Notified Whom TM Blood Gas Notified Time 03/18/2017 10:09:28 AM Test 03/18/17 10:03 03/18/17 10:05 03/18/17 10:20 03/18/17 13:54 Bedside Glucose 364 H 363 H Urine Color EDIE Urine Clarity CLOUDY A Urine pH 6.0 Urine Specific [place] 1.014 Urine Ketones NEGATIVE Urine Nitrite NEGATIVE Urine Bilirubin NEGATIVE Urine Urobilinogen 2+ H Urine Leukocyte Esterase NEGATIVE Urine Microscopic RBC 30 H Urine Microscopic WBC 59 H Urine Amorphous Crystals FEW A Urine Bacteria FEW A Urine Granular Casts FEW A Urine Mucus FEW A Urine Yeast (Budding) MANY A Urine Hemoglobin 1+ H Urine Glucose 3+ H Urine Total Protein 2+ H Osmolality 376 H Lactic Acid Level 5.8 *H Test 03/18/17 14:27 03/18/17 14:30 03/18/17 15:04 03/18/17 16:03 Blood Gas Specimen Source Blood arterial Arterial Blood Date Drawn 03/18/2017 3:00:26 PM Arterial Blood pH (Temp corrected) 7.387 Arterial Blood pCO2 (Temp correct) 39.5 Arterial Blood pO2 (Temp corrected) 79.0 L Arterial Blood HCO3 23.6 Arterial Blood Base Excess -1.7 Arterial Blood Oxygen Saturation 96.1 Stanford Test ACCEPTAB Arterial Blood Gas Puncture Site Right Brachial Arterial Blood Carboxyhemoglobin 0 Arterial Blood Methemoglobin 0.3 Blood Gas A-a O2 Differential 126.0 H Oxyhemoglobin Percent 95.8 Total Hemoglobin 11.3 L Blood Gas Temperature 35.4 Blood Gas Respiration Rate 18.0 Blood Gas Actual Respiration Rate 18 Blood Gas Modality VENT - AC FiO2 35.0 Blood Gas Tidal Volume 550.0 Blood Gas Low PEEP Setting 5.0 Blood Gas Notified Whom MDA Blood Gas Notified Time 03/18/2017 3:03:58 PM Prothrombin Time 19.1 H Prothrombin Time Ratio 1.5 INR International Normalized Ratio 1.59 Activated Partial Thromboplast Time 35.4 H Lactic Acid Level 4.8 *H Creatine Kinase 208 H Creatine Kinase Index 2.9 Creatinine Kinase MB (Mass) 6.11 H Troponin I 0.845 *H Free Thyroxine 1.22 Bedside Glucose 177 227 H Test 03/18/17 18:40 03/18/17 20:27 03/18/17 22:00 03/18/17 22:59 Sodium Level 165 *H Potassium Level 3.6 Chloride Level 123 H Carbon Dioxide Level 26 Anion Gap 20 H Blood Urea Nitrogen 56 H Creatinine 1.52 H Glucose Level 249 #H Lactic Acid Level 4.5 *H Calcium Level 7.1 L Creatine Kinase 292 H Creatine Kinase Index 2.9 Creatinine Kinase MB (Mass) 8.54 H Troponin I 0.796 *H Blood Gas Specimen Source Blood arterial Arterial Blood Date Drawn 03/18/2017 8:30:45 PM Arterial Blood pH (Temp corrected) 7.467 H Arterial Blood pCO2 (Temp correct) 33.0 L Arterial Blood pO2 (Temp corrected) 71.6 L Arterial Blood HCO3 23.9 Arterial Blood Base Excess -0.2 Arterial Blood Oxygen Saturation 96.5 Stanford Test N/A Arterial Blood Gas Puncture Site Right Brachial Arterial Blood Carboxyhemoglobin 0 Arterial Blood Methemoglobin 0.3 Blood Gas A-a O2 Differential 142.0 H Oxyhemoglobin Percent 96.2 Total Hemoglobin 11.8 L Blood Gas Temperature 34.2 Blood Gas Respiration Rate 18.0 Blood Gas Actual Respiration Rate 18 Blood Gas Modality VENT - AC FiO2 35.0 Blood Gas Tidal Volume 550.0 Blood Gas Low PEEP Setting 5.0 Blood Gas Inspiratory Pressure 25.0 Blood Gas Notified Whom AA Blood Gas Notified Time 03/18/2017 8:43:45 PM Urine Osmolality 346 Urine Random Sodium 15 L Bedside Glucose 270 H Test 03/18/17 23:50 03/19/17 00:04 03/19/17 00:12 03/19/17 01:03 Troponin I 0.463 *H Bedside Glucose 261 H 277 H Lactic Acid Level 2.8 *H Test 03/19/17 01:57 03/19/17 02:27 03/19/17 03:01 03/19/17 03:56 Bedside Glucose 242 H 230 H 201 Blood Gas Specimen Source Blood arterial Arterial Blood Date Drawn 03/19/2017 2:42:03 AM Arterial Blood pH (Temp corrected) 7.451 H Arterial Blood pCO2 (Temp correct) 29.2 L Arterial Blood pO2 (Temp corrected) 88.7 Arterial Blood HCO3 20.8 L Arterial Blood Base Excess -3.6 L Arterial Blood Oxygen Saturation 98.0 Stanford Test N/A Arterial Blood Gas Puncture Site Right Brachial Arterial Blood Carboxyhemoglobin 0.3 Arterial Blood Methemoglobin 0.2 Blood Gas A-a O2 Differential 130.3 H Oxyhemoglobin Percent 97.5 Total Hemoglobin 11.6 L Blood Gas Temperature 32.8 Blood Gas Respiration Rate 18.0 Blood Gas Actual Respiration Rate 18 Blood Gas Modality VENT - AC FiO2 35.0 Blood Gas Tidal Volume 550.0 Blood Gas Low PEEP Setting 5.0 Blood Gas Inspiratory Pressure 25.0 Blood Gas Notified Whom AA Blood Gas Notified Time 03/19/2017 2:57:12 AM Test 03/19/17 04:59 03/19/17 05:26 03/19/17 05:56 Bedside Glucose 174 183 White Blood Count 7.5 # Red Blood Count 3.63 #L Hemoglobin 10.1 #L Hematocrit 35.2 #L Mean Corpuscular Volume 97.0 Mean Corpuscular Hemoglobin 27.8 L Mean Corpuscular Hemoglobin Concent 28.7 L Red Cell Distribution Width 15.8 H Platelet Count 155 Mean Platelet Volume 13.3 H Neutrophils % Lymphocytes % Monocytes % Eosinophils % Basophils % Nucleated Red Blood Cells % 0.0 Neutrophils # Lymphocytes # Monocytes # Eosinophils # Basophils # Nucleated Red Blood Cells # Sodium Level 164 *H Potassium Level 3.5 Chloride Level 123 H Carbon Dioxide Level 25 Anion Gap 20 H Blood Urea Nitrogen 66 H Creatinine 1.59 H Glucose Level 180 Lactic Acid Level 3.2 *H Calcium Level 7.1 L Phosphorus Level 3.8 # Magnesium Level 2.3 Total Bilirubin 0.2 Direct Bilirubin 0.00 Indirect Bilirubin 0.2 Aspartate Amino Transf (AST/SGOT) 113 H Alanine Aminotransferase (ALT/SGPT) 78 H Alkaline Phosphatase 91 Total Protein 6.7 Albumin 2.8 L Globulin 3.90 H Albumin/Globulin Ratio 0.71 Triglycerides Level 73 Cholesterol Level 90 L LDL Cholesterol, Calculated 56 HDL Cholesterol 19 L Cholesterol/HDL Ratio 4.7 Thyroid Stimulating Hormone (TSH) Pending Medications Medications Current Medications Ondansetron HCl (Zofran Inj) 4 mg Q6H PRN IV NAUSEA AND/OR VOMITING; Start 03/18 at 10:30 Acetaminophen (Tylenol Tab) 650 mg Q6H PRN PO PAIN LEVEL 1-3 OR FEVER; Start at 10:30 Acetaminophen/ Hydrocodone Bitart ([place] (5/325)) 1 tab Q6H PRN PO MODERATE PAIN LEVEL 4-6; Start 03/18/17 at 10:30 Morphine Sulfate (morphine) 2 mg Q4H PRN IV SEVERE PAIN LEVEL 7-10; Start at 10:30 Docusate Sodium (Colace) 100 mg Q12H PRN PO CONSTIPATION; Start 03/18/17 at 10: 30 Magnesium Hydroxide (Milk Of Mag) 30 ml DAILY PRN PO CONSTIPATION; Start at 10:30 Sodium Biphosphate/ Sodium Phosphate (Fleet Enema) 133 ml DAILY PRN MO CONSTIPATION; Start 03/18/17 at 10:30 Famotidine (Pepcid Iv) 20 mg HS IV ; Start 03/18/17 at 21:00 Lorazepam (Ativan) 0.5 mg Q6H PRN IV ANXIETY; Start 03/18/17 at 10:30 Vancomycin HCl (Vanco Iv Per Pharmacy) VANCOMYCIN PER PHARMACY NOTE XX ; Start 03/18/17 at 10:30 Hydralazine HCl (Apresoline) 10 mg Q6H PRN IV ELEVATED BLOOD PRESSURE; Start at 10:30 Nitroglycerin (Nitroglycerin (Sl Tab) 0.4 Mg) 1 tab Q5M PRN SL ANGINA; Start at 10:30 Dextrose (D50w Syringe) 25 ml Q15M PRN IV Till BS 80 mg/dL or above x2; Start 03/18/17 at 10:30 Dextrose (D50w Syringe) 50 ml Q15M PRN IV Till BS 80 mg/dL or above x2; Start 03/18/17 at 10:30 Fentanyl 25 mcg 25 mcg Q10M PRN IV SEDATION Last administered on 03/18/17 11:33 ; Admin Dose 25 MCG; Start 03/18/17 at 11:00 Vecuronium [place] 100 mg/ Dextrose 100 ml @ 4.5 mls/hr [id number] ONCE IV Last administered on 03/19/17 05:32; Admin Dose 4.5 MLS/HR; Start 03/18/17 at 10:42; Stop 03/19/17 at 08:55 Midazolam HCl 50 ml @ 2 mls/hr ONCE IV Last administered on 03/18/17 11:58; Admin Dose 2 MLS/HR; Start 03/18/17 at 11:30 Vancomycin HCl 1.25 gm/Sodium Chloride 250 ml @ 83.333 mls/ hr Q24H IVPB ; Start 03/19/17 at 12:30 Cefepime HCl (Maxipime 2gm/50 ml (Pmx)) 50 ml @ 100 mls/hr Q12 IVPB Last administered on 03/18/17 13:37; Admin Dose 100 MLS/HR; Start 03/18/17 at 12:00 Acetaminophen (Tylenol Supp) 650 mg Q4H PRN MO TEMP > 37C Last administered on 03/18/17 19:08; Admin Dose 650 MG; Start 03/18/17 at 14:30 Acetaminophen (Tylenol Liquid) 650 mg Q4H PRN PO TEMP > 37C; Start 03/18/17 at 14:30 Acetaminophen (Tylenol Supp) 500 mg Q6H MO ; Start 03/19/17 at 14:30 Acetaminophen (Tylenol Liquid) 500 mg Q6H PO ; Start 03/19/17 at 14:30 Meperidine HCl (Demerol) 12.5 mg Q4H PRN IV POST OPERATIVE SHIVERING; Start 03/18/17 at 14:30 Meperidine HCl (Demerol) 25 mg Q4H PRN IV POST OPERATIVE SHIVERING; Start at 14:30 Eye Lubricant ([place] Oint) 1 applic Q6 BOTH EYES ; Start 03/18/17 at 18:00 Eye Lubricant (Artificial Tears Oph) 2 drop Q6 BOTH EYES ; Start 03/18/17 at 18: 00 Diagnostic Test (Pha) (Accu-Chek) 1 ea Q1H XX Last administered on 03/19/17 01: 00; Admin Dose 1 EA; Start 03/18/17 at 14:30 Dextrose (D50w Syringe) 25 ml Q15M PRN IV Till BS 80 mg/dL or above x2; Start 03/18/17 at 14:30 Dextrose 50 ml 50 ml Q15M PRN IV Till BS 80 mg/dL or above x2; Start 03/18/17 at 14:30 Vasopressin 60 unit/Dextrose 60 ml @ 1.2 mls/hr Q12H IV Last administered on 20:28; Admin Dose 1.2 MLS/HR; Start 03/18/17 at 20:00 Potassium Chloride/Dextrose/ Sod Cl (D5-1/4ns + KCl 20 Meq) 1,000 ml @ 80 mls/ hr [id number] IV Last administered on 03/18/17 22:56; Admin Dose 80 MLS/HR; Start 03/18/17 at 20:00 BRI IBARRA Mar 19, 2017 07:17
[2017-03-19 07:24] LABS: THYROID STIMULATING HORMONE 0.353 MIU/L (0.465-4.680)
[2017-03-19] MEDS: FAMOTIDINE 20 MG INJ IV SCH ×2 (08:00→21:05)
[2017-03-19] MEDS: VASOPRESSIN 60 UNIT in DEXTROSE 5% 57 ML IV SCH ×2 (08:00→14:32)
[2017-03-19] MEDS: ARTIFICIAL TEARS 15 ML OPH BOTH EYES SCH ×4 (08:00→23:59)
[2017-03-19 09:01] LABS: AADO2 Arterial 102.6 mmHg (7.0-24.0); Arterial Base Excess -4.1 mmol/L (-3.0-3); Arterial COHb 0.3 % (0.0-3.0); Arterial Fraction of Oxyhgb 96.3 % (93.0-99.0); Arterial MetHb 0.2 % (0.0-1.5); Arterial Total Hemglobin 11.5 g/dl (12.0-18.0); MODE VENT - AC
[2017-03-19] MEDS: MIDAZOLAM (DRIP) 50 mg/50 mL 50 ML IV SCH (09:02)
[2017-03-19] MEDS: FENTAnyl 50 MCG/ML VIAL IV PRN ×2 (09:03→09:04)
[2017-03-19] MEDS: D5-0.2 NACL + KCL 20 MEQ 1,000 ML IV SCH (09:22)
--- NOTE | 2017-03-19 09:58 | PN ---
Date/Time of Note Date/Time of Note DATE: 03/19/17 TIME: 09:51 Assessment/Plan VTE Prophylaxis VTE Prophylaxis Intervention: SCD's Assessment/Plan Chief Complaint/Hosp Course Assessment and plan: 71-year-old male past medical history of traumatic brain injury, Seizure disorder, Coronary artery disease, Atrial ablation, Hypertension , History of hydrocephalus, History of depression, who presented with fever, altered mental status, hypoxia, cardiac arrest, now intubated and on pressors, with severe hypernatremia, signs of non-ST elevation OH, and possible aspiration pneumonia 1. Cardiac arrest: Again patient is intubated, seen by cardiology team, on pressor support. Again, he has signs of non-ST elevation OH as well.- echocardiogram showed normal LVEF 60%, RVSP 62 mmHg -Continue care in ICU, follow cardiology recommendations. - Continue hypothermia protocol. 2. Respiratory failure: Again likely secondary to #1. Also with signs of aspiration pneumonia. -Continue broad-spectrum antibiotics, duo nebs as needed, follow pulmonary recommendations for vent management -Follow-up infectious disease recommendations and culture results 3. Non-ST elevation OH -troponins still elevated. Per cardiology team, likely type 2 event -Follow-up cardiology recommendations, trend troponins 4. Severe hypernatremia. Likely has severe intravascular volume depletion. Sodium initially 171, today 164. -Appreciate renal consult, continue D5W fluids per renal recommendations,, monitor BMP every 4-6 hours for now, free water as well 5. Shock: Likely septic given his fevers. On pressors 2. -Continue pressor support, elevated lactic acid is present so trend that, aggressive IV fluid hydration, follow culture results, labs in the morning. 6. Hx of TBI -monitor for now 7. Anxiety/depression: Monitor for now 8. GI prophylaxis: H2 dereck Critical care time spent today on patient care today = 50 minutes Problems: Subjective 24 Hr Interval Summary Free Text/Dictation Patient still intubated, on 2 pressors now. On hypothermia protocol still. Seen by infectious disease, cardiology, renal teams. Palliative team as well. Exam/Review of Systems Vital Signs Vitals Vital Signs Date Time Temp Pulse Resp B/P Pulse Ox O2 Delivery O2 Flow Rate FiO2 03/19/17 08:39 73 18 100 30 03/19/17 08:00 91.2 102/76 Mechanical Ventilator 03/18/17 07:27 15 Exam Const: unresponsive, intubated Head: Atraumatic Eyes: Normal Conjunctiva ENT: Mucous membranes dry Neck: JVD Resp: No spontaneous respirations, decreased breath sounds with bag valve mask Cardio: S1, S2 Abd: Soft, non tender, non distended. No masses Skin: Cyanotic noted in the left hand and partially in other extremities Back: No deformity Ext: Cyanotic, no edema Neur: Unresponsive, [place] Coma Scale 3 Results Result Diagram: 03/19/17 0503/19/17 0526 Results 24 hrs Laboratory Tests Test 03/18/17 10:03 03/18/17 10:05 03/18/17 10:20 03/18/17 13:54 Bedside Glucose 364 H 363 H Urine Color EDIE Urine Clarity CLOUDY A Urine pH 6.0 Urine Specific [place] 1.014 Urine Ketones NEGATIVE Urine Nitrite NEGATIVE Urine Bilirubin NEGATIVE Urine Urobilinogen 2+ H Urine Leukocyte Esterase NEGATIVE Urine Microscopic RBC 30 H Urine Microscopic WBC 59 H Urine Amorphous Crystals FEW A Urine Bacteria FEW A Urine Granular Casts FEW A Urine Mucus FEW A Urine Yeast (Budding) MANY A Urine Hemoglobin 1+ H Urine Glucose 3+ H Urine Total Protein 2+ H Osmolality 376 H Lactic Acid Level 5.8 *H Test 03/18/17 14:27 03/18/17 14:30 03/18/17 15:04 03/18/17 16:03 Blood Gas Specimen Source Blood arterial Arterial Blood Date Drawn 03/18/2017 3:00:26 PM Arterial Blood pH (Temp corrected) 7.387 Arterial Blood pCO2 (Temp correct) 39.5 Arterial Blood pO2 (Temp corrected) 79.0 L Arterial Blood HCO3 23.6 Arterial Blood Base Excess -1.7 Arterial Blood Oxygen Saturation 96.1 [facility] Test ACCEPTAB Arterial Blood Gas Puncture Site Right Brachial Arterial Blood Carboxyhemoglobin 0 Arterial Blood Methemoglobin 0.3 Blood Gas A-a O2 Differential 126.0 H Oxyhemoglobin Percent 95.8 Total Hemoglobin 11.3 L Blood Gas Temperature 35.4 Blood Gas Respiration Rate 18.0 Blood Gas Actual Respiration Rate 18 Blood Gas Modality VENT - AC FiO2 35.0 Blood Gas Tidal Volume 550.0 Blood Gas Low PEEP Setting 5.0 Blood Gas Notified Whom MDA Blood Gas Notified Time 03/18/2017 3:03:58 PM Prothrombin Time 19.1 H Prothrombin Time Ratio 1.5 INR International Normalized Ratio 1.59 Activated Partial Thromboplast Time 35.4 H Lactic Acid Level 4.8 *H Creatine Kinase 208 H Creatine Kinase Index 2.9 Creatinine Kinase MB (Mass) 6.11 H Troponin I 0.845 *H Free Thyroxine 1.22 Bedside Glucose 177 227 H Test 03/18/17 18:40 03/18/17 20:27 03/18/17 22:00 03/18/17 22:59 Sodium Level 165 *H Potassium Level 3.6 Chloride Level 123 H Carbon Dioxide Level 26 Anion Gap 20 H Blood Urea Nitrogen 56 H Creatinine 1.52 H Glucose Level 249 #H Lactic Acid Level 4.5 *H Calcium Level 7.1 L Creatine Kinase 292 H Creatine Kinase Index 2.9 Creatinine Kinase MB (Mass) 8.54 H Troponin I 0.796 *H Blood Gas Specimen Source Blood arterial Arterial Blood Date Drawn 03/18/2017 8:30:45 PM Arterial Blood pH (Temp corrected) 7.467 H Arterial Blood pCO2 (Temp correct) 33.0 L Arterial Blood pO2 (Temp corrected) 71.6 L Arterial Blood HCO3 23.9 Arterial Blood Base Excess -0.2 Arterial Blood Oxygen Saturation 96.5 [facility] Test N/A Arterial Blood Gas Puncture Site Right Brachial Arterial Blood Carboxyhemoglobin 0 Arterial Blood Methemoglobin 0.3 Blood Gas A-a O2 Differential 142.0 H Oxyhemoglobin Percent 96.2 Total Hemoglobin 11.8 L Blood Gas Temperature 34.2 Blood Gas Respiration Rate 18.0 Blood Gas Actual Respiration Rate 18 Blood Gas Modality VENT - AC FiO2 35.0 Blood Gas Tidal Volume 550.0 Blood Gas Low PEEP Setting 5.0 Blood Gas Inspiratory Pressure 25.0 Blood Gas Notified Whom AA Blood Gas Notified Time 03/18/2017 8:43:45 PM Urine Osmolality 346 Urine Random Sodium 15 L Bedside Glucose 270 H Test 03/18/17 23:50 03/19/17 00:04 03/19/17 00:12 03/19/17 01:03 Troponin I 0.463 *H Bedside Glucose 261 H 277 H Lactic Acid Level 2.8 *H Test 03/19/17 01:57 03/19/17 02:27 03/19/17 03:01 03/19/17 03:56 Bedside Glucose 242 H 230 H 201 Blood Gas Specimen Source Blood arterial Arterial Blood Date Drawn 03/19/2017 2:42:03 AM Arterial Blood pH (Temp corrected) 7.451 H Arterial Blood pCO2 (Temp correct) 29.2 L Arterial Blood pO2 (Temp corrected) 88.7 Arterial Blood HCO3 20.8 L Arterial Blood Base Excess -3.6 L Arterial Blood Oxygen Saturation 98.0 [facility] Test N/A Arterial Blood Gas Puncture Site Right Brachial Arterial Blood Carboxyhemoglobin 0.3 Arterial Blood Methemoglobin 0.2 Blood Gas A-a O2 Differential 130.3 H Oxyhemoglobin Percent 97.5 Total Hemoglobin 11.6 L Blood Gas Temperature 32.8 Blood Gas Respiration Rate 18.0 Blood Gas Actual Respiration Rate 18 Blood Gas Modality VENT - AC FiO2 35.0 Blood Gas Tidal Volume 550.0 Blood Gas Low PEEP Setting 5.0 Blood Gas Inspiratory Pressure 25.0 Blood Gas Notified Whom AA Blood Gas Notified Time 03/19/2017 2:57:12 AM Test 03/19/17 04:59 03/19/17 05:26 03/19/17 05:56 03/19/17 07:01 Bedside Glucose 174 183 146 White Blood Count 7.5 # Red Blood Count 3.63 #L Hemoglobin 10.1 #L Hematocrit 35.2 #L Mean Corpuscular Volume 97.0 Mean Corpuscular Hemoglobin 27.8 L Mean Corpuscular Hemoglobin Concent 28.7 L Red Cell Distribution Width 15.8 H Platelet Count 155 Mean Platelet Volume 13.3 H Neutrophils % Lymphocytes % Monocytes % Eosinophils % Basophils % Nucleated Red Blood Cells % 0.0 Neutrophils # Lymphocytes # Monocytes # Eosinophils # Basophils # Nucleated Red Blood Cells # Sodium Level 164 *H Potassium Level 3.5 Chloride Level 123 H Carbon Dioxide Level 25 Anion Gap 20 H Blood Urea Nitrogen 66 H Creatinine 1.59 H Glucose Level 180 Hemoglobin A1c 6.9 H Lactic Acid Level 3.2 *H Calcium Level 7.1 L Phosphorus Level 3.8 # Magnesium Level 2.3 Total Bilirubin 0.2 Direct Bilirubin 0.00 Indirect Bilirubin 0.2 Aspartate Amino Transf (AST/SGOT) 113 H Alanine Aminotransferase (ALT/SGPT) 78 H Alkaline Phosphatase 91 Total Protein 6.7 Albumin 2.8 L Globulin 3.90 H Albumin/Globulin Ratio 0.71 Triglycerides Level 73 Cholesterol Level 90 L LDL Cholesterol, Calculated 56 HDL Cholesterol 19 L Cholesterol/HDL Ratio 4.7 Thyroid Stimulating Hormone (TSH) 0.353 L Test 03/19/17 07:59 03/19/17 08:07 03/19/17 08:27 Troponin I 0.292 *H Bedside Glucose 121 Blood Gas Specimen Source Blood arterial Arterial Blood Date Drawn 03/19/2017 8:50:26 AM Arterial Blood pH (Temp corrected) 7.415 Arterial Blood pCO2 (Temp correct) 32.2 L Arterial Blood pO2 (Temp corrected) 76.3 L Arterial Blood HCO3 21.0 L Arterial Blood Base Excess -4.1 L Arterial Blood Oxygen Saturation 96.8 [facility] Test N/A Arterial Blood Gas Puncture Site Right Brachial Arterial Blood Carboxyhemoglobin 0.3 Arterial Blood Methemoglobin 0.2 Blood Gas A-a O2 Differential 102.6 H Oxyhemoglobin Percent 96.3 Total Hemoglobin 11.5 L Blood Gas Temperature 33.0 Blood Gas Respiration Rate 18.0 Blood Gas Actual Respiration Rate 18 Blood Gas Modality VENT - AC FiO2 30.0 Blood Gas Tidal Volume 550.0 Blood Gas Low PEEP Setting 5.0 Blood Gas Notified Whom TM Blood Gas Notified Time 03/19/2017 9:01:06 AM Medications Medications Current Medications Ondansetron HCl (Zofran Inj) 4 mg Q6H PRN IV NAUSEA AND/OR VOMITING; Start 03/18 at 10:30 Acetaminophen (Tylenol Tab) 650 mg Q6H PRN PO PAIN LEVEL 1-3 OR FEVER; Start at 10:30 Acetaminophen/ Hydrocodone Bitart ([place]cd[place] (5/325)) 1 tab Q6H PRN PO MODERATE PAIN LEVEL 4-6; Start 03/18/17 at 10:30 Morphine Sulfate (morphine) 2 mg Q4H PRN IV SEVERE PAIN LEVEL 7-10; Start at 10:30 Docusate Sodium (Colace) 100 mg Q12H PRN PO CONSTIPATION; Start 03/18/17 at 10: 30 Magnesium Hydroxide (Milk Of Mag) 30 ml DAILY PRN PO CONSTIPATION; Start at 10:30 Sodium Biphosphate/ Sodium Phosphate (Fleet Enema) 133 ml DAILY PRN MS CONSTIPATION; Start 03/18/17 at 10:30 Famotidine (Pepcid Iv) 20 mg HS IV ; Start 03/18/17 at 21:00 Lorazepam (Ativan) 0.5 mg Q6H PRN IV ANXIETY; Start 03/18/17 at 10:30 Vancomycin HCl (Vanco Iv Per Pharmacy) VANCOMYCIN PER PHARMACY NOTE XX ; Start 03/18/17 at 10:30 Hydralazine HCl (Apresoline) 10 mg Q6H PRN IV ELEVATED BLOOD PRESSURE; Start at 10:30 Nitroglycerin (Nitroglycerin (Sl Tab) 0.4 Mg) 1 tab Q5M PRN SL ANGINA; Start at 10:30 Dextrose (D50w Syringe) 25 ml Q15M PRN IV Till BS 80 mg/dL or above x2; Start 03/18/17 at 10:30 Dextrose (D50w Syringe) 50 ml Q15M PRN IV Till BS 80 mg/dL or above x2; Start 03/18/17 at 10:30 Fentanyl 25 mcg 25 mcg Q10M PRN IV SEDATION Last administered on 03/18/17 11:33 ; Admin Dose 25 MCG; Start 03/18/17 at 11:00 Midazolam HCl 50 ml @ 2 mls/hr ONCE IV Last administered on 03/19/17 09:02; Admin Dose 1.2 MLS/HR; Start 03/18/17 at 11:30 Cefepime HCl (Maxipime 2gm/50 ml (Pmx)) 50 ml @ 100 mls/hr Q12 IVPB Last administered on 03/18/17 13:37; Admin Dose 100 MLS/HR; Start 03/18/17 at 12:00 Acetaminophen (Tylenol Supp) 650 mg Q4H PRN MS TEMP > 37C Last administered on 03/18/17 19:08; Admin Dose 650 MG; Start 03/18/17 at 14:30 Acetaminophen (Tylenol Liquid) 650 mg Q4H PRN PO TEMP > 37C; Start 03/18/17 at 14:30 Acetaminophen (Tylenol Supp) 500 mg Q6H MS ; Start 03/19/17 at 14:30 Acetaminophen (Tylenol Liquid) 500 mg Q6H PO ; Start 03/19/17 at 14:30 Meperidine HCl (Demerol) 12.5 mg Q4H PRN IV POST OPERATIVE SHIVERING; Start 03/18/17 at 14:30 Meperidine HCl (Demerol) 25 mg Q4H PRN IV POST OPERATIVE SHIVERING; Start at 14:30 Eye Lubricant (Akwa Oint) 1 applic Q6 BOTH EYES ; Start 03/18/17 at 18:00 Eye Lubricant (Artificial Tears Oph) 2 drop Q6 BOTH EYES ; Start 03/18/17 at 18: 00 Diagnostic Test (Pha) (Accu-Chek) 1 ea Q1H XX Last administered on 03/19/17 01: 00; Admin Dose 1 EA; Start 03/18/17 at 14:30 Dextrose (D50w Syringe) 25 ml Q15M PRN IV Till BS 80 mg/dL or above x2; Start 03/18/17 at 14:30 Dextrose 50 ml 50 ml Q15M PRN IV Till BS 80 mg/dL or above x2; Start 03/18/17 at 14:30 Vasopressin 60 unit/Dextrose 60 ml @ 1.2 mls/hr Q12H IV Last administered on 20:28; Admin Dose 1.2 MLS/HR; Start 03/18/17 at 20:00 Potassium Chloride/Dextrose/ Sod Cl 1,000 ml @ 80 mls/hr [id number] IV Last administered on 03/19/17 09:22; Admin Dose 80 MLS/HR; Start 03/18/17 at 20:00 Vancomycin HCl/ Dextrose (Vancocin/D5W) 250 ml @ 125 mls/hr Q24H IVPB ; Start 03/19/17 at 14:00 WENDY SHI Mar 19, 2017 09:58
[2017-03-19] MEDS ORDERED: ACETAMINOPHEN 650MG/20.3ML CUP PO PRN (10:00)
[2017-03-19] MEDS ORDERED: ACETAMINOPHEN 650 MG SUPP PR PRN (10:00)
[2017-03-19] MEDS ORDERED: NORepinephrine 8MG/250 ML (PMX 250 ML IV SCH (10:30)
[2017-03-19 10:36] LABS: ANISOCYTOSIS 1+ (0-0); EOSINOPHILS % (M) 1 % (0-7); GIANT THROMBO% (M) 7 % (0-0); METAMYELOCYTES %M 9 % (0-0); MONOCYTES % (M) 1 % (0-11); PLATELET ESTIMATE NORMAL; POIKILOCYTOSIS 1+ (0-0); POLYCHROMASIA 3+ (0-0)
[2017-03-19] MEDS ORDERED: VECURONIUM 100 MG in DEXTROSE 5% 100 ML IV SCH (10:36)
[2017-03-19] MEDS: DEXTROSE 5%-0.225% NACL 1,000 ML IV SCH (10:43)
[2017-03-19] MEDS ORDERED: FENTAnyl 50 MCG/ML VIAL IV SCH (11:00)
[2017-03-19] MEDS ORDERED: MIDAZOLAM (DRIP) 50 mg/50 mL 50 ML IV SCH (11:00)
[2017-03-19] MEDS ORDERED: PROPOFOL 100 ML IV SCH (11:00)
--- NOTE | 2017-03-19 11:00 | CONS ---
Date/Time of Note Date/Time of Note DATE: 03/19/17 TIME: 10:58 Assessment/Plan Assessment/Plan Additional Assessment/Plan Ventilator setting; AC of 18, tidal volume 5 5, 30% FiO2. Assessment and recommendations; 1. Patient admitted for severe sepsis status post cardiac arrest and along CPR. 2. Currently it is difficult to assess for any hypoxic brain injury due to hypothermia protocol in place. 3. Severe bilateral pneumonia. 4. Severe intravascular volume depletion with severe hypernatremia. 5. Other comorbidities including history of hydrocephalus, seizure disorder, coronary artery disease, hypertension, and paroxysmal atrial fibrillation. Continue current supportive care. Prognosis is poor. Consultation Date/Type/Reason Admit Date/Time Mar 18, 2017 at 09:15 Initial Consult Date 03/19/17 Type of Consultation: Pulmonary/critical care 24 HR Interval Summary Free Text/Dictation Patient condition remains extremely critical. Currently on hypothermia protocol. Patient is sedated and paralyzed. General exam; elderly male, orally intubated, sedated and paralyzed. Exam/Review of Systems Vital Signs Vitals Vital Signs Date Time Temp Pulse Resp B/P Pulse Ox O2 Delivery O2 Flow Rate FiO2 03/19/17 08:39 73 18 100 30 03/19/17 08:00 91.2 102/76 Mechanical Ventilator 03/18/17 07:27 15 Exam HEENT exam; supple neck, positive JVD. No lymphadenopathy. Midline trachea. No thyromegaly. Patient is edentulous. Orally intubated. Chest exam; bilateral crackles. S1-S2 audible, no murmurs. Regular rhythm. Patient having intermittent atrial fibrillation. Abdomen exam; soft, no organomegaly. Bowel sounds are absent. Extremity exam; trace edema. 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 Results Result Diagram: 03/19/17 0526 03/19/17 0526 Results 24 hrs Laboratory Tests Test 03/18/17 13:54 03/18/17 14:27 03/18/17 14:30 03/18/17 15:04 Bedside Glucose 363 H 177 Blood Gas Specimen Source Blood arterial Arterial Blood Date Drawn 03/18/2017 3:00:26 PM Arterial Blood pH (Temp corrected) 7.387 Arterial Blood pCO2 (Temp correct) 39.5 Arterial Blood pO2 (Temp corrected) 79.0 L Arterial Blood HCO3 23.6 Arterial Blood Base Excess -1.7 Arterial Blood Oxygen Saturation 96.1 [facility] Test ACCEPTAB Arterial Blood Gas Puncture Site Right Brachial Arterial Blood Carboxyhemoglobin 0 Arterial Blood Methemoglobin 0.3 Blood Gas A-a O2 Differential 126.0 H Oxyhemoglobin Percent 95.8 Total Hemoglobin 11.3 L Blood Gas Temperature 35.4 Blood Gas Respiration Rate 18.0 Blood Gas Actual Respiration Rate 18 Blood Gas Modality VENT - AC FiO2 35.0 Blood Gas Tidal Volume 550.0 Blood Gas Low PEEP Setting 5.0 Blood Gas Notified Whom MDA Blood Gas Notified Time 03/18/2017 3:03:58 PM Prothrombin Time 19.1 H Prothrombin Time Ratio 1.5 INR International Normalized Ratio 1.59 Activated Partial Thromboplast Time 35.4 H Lactic Acid Level 4.8 *H Creatine Kinase 208 H Creatine Kinase Index 2.9 Creatinine Kinase MB (Mass) 6.11 H Troponin I 0.845 *H Free Thyroxine 1.22 Test 03/18/17 16:03 03/18/17 18:40 03/18/17 20:27 03/18/17 22:00 Bedside Glucose 227 H Sodium Level 165 *H Potassium Level 3.6 Chloride Level 123 H Carbon Dioxide Level 26 Anion Gap 20 H Blood Urea Nitrogen 56 H Creatinine 1.52 H Glucose Level 249 #H Lactic Acid Level 4.5 *H Calcium Level 7.1 L Creatine Kinase 292 H Creatine Kinase Index 2.9 Creatinine Kinase MB (Mass) 8.54 H Troponin I 0.796 *H Blood Gas Specimen Source Blood arterial Arterial Blood Date Drawn 03/18/2017 8:30:45 PM Arterial Blood pH (Temp corrected) 7.467 H Arterial Blood pCO2 (Temp correct) 33.0 L Arterial Blood pO2 (Temp corrected) 71.6 L Arterial Blood HCO3 23.9 Arterial Blood Base Excess -0.2 Arterial Blood Oxygen Saturation 96.5 [facility] Test N/A Arterial Blood Gas Puncture Site Right Brachial Arterial Blood Carboxyhemoglobin 0 Arterial Blood Methemoglobin 0.3 Blood Gas A-a O2 Differential 142.0 H Oxyhemoglobin Percent 96.2 Total Hemoglobin 11.8 L Blood Gas Temperature 34.2 Blood Gas Respiration Rate 18.0 Blood Gas Actual Respiration Rate 18 Blood Gas Modality VENT - AC FiO2 35.0 Blood Gas Tidal Volume 550.0 Blood Gas Low PEEP Setting 5.0 Blood Gas Inspiratory Pressure 25.0 Blood Gas Notified Whom AA Blood Gas Notified Time 03/18/2017 8:43:45 PM Urine Osmolality 346 Urine Random Sodium 15 L Test 03/18/17 22:59 03/18/17 23:50 03/19/17 00:04 03/19/17 00:12 Bedside Glucose 270 H 261 H Troponin I 0.463 *H Lactic Acid Level 2.8 *H Test 03/19/17 01:03 03/19/17 01:57 03/19/17 02:27 03/19/17 03:01 Bedside Glucose 277 H 242 H 230 H Blood Gas Specimen Source Blood arterial Arterial Blood Date Drawn 03/19/2017 2:42:03 AM Arterial Blood pH (Temp corrected) 7.451 H Arterial Blood pCO2 (Temp correct) 29.2 L Arterial Blood pO2 (Temp corrected) 88.7 Arterial Blood HCO3 20.8 L Arterial Blood Base Excess -3.6 L Arterial Blood Oxygen Saturation 98.0 [facility] Test N/A Arterial Blood Gas Puncture Site Right Brachial Arterial Blood Carboxyhemoglobin 0.3 Arterial Blood Methemoglobin 0.2 Blood Gas A-a O2 Differential 130.3 H Oxyhemoglobin Percent 97.5 Total Hemoglobin 11.6 L Blood Gas Temperature 32.8 Blood Gas Respiration Rate 18.0 Blood Gas Actual Respiration Rate 18 Blood Gas Modality VENT - AC FiO2 35.0 Blood Gas Tidal Volume 550.0 Blood Gas Low PEEP Setting 5.0 Blood Gas Inspiratory Pressure 25.0 Blood Gas Notified Whom AA Blood Gas Notified Time 03/19/2017 2:57:12 AM Test 03/19/17 03:56 03/19/17 04:59 03/19/17 05:26 03/19/17 05:56 Bedside Glucose 201 174 183 White Blood Count 7.5 # Red Blood Count 3.63 #L Hemoglobin 10.1 #L Hematocrit 35.2 #L Mean Corpuscular Volume 97.0 Mean Corpuscular Hemoglobin 27.8 L Mean Corpuscular Hemoglobin Concent 28.7 L Red Cell Distribution Width 15.8 H Platelet Count 155 Mean Platelet Volume 13.3 H Neutrophils % Segmented Neutrophils % (Manual) 14 L Band Neutrophils % (Manual) 41 H Lymphocytes % Lymphocytes % (Manual) 34 Monocytes % Monocytes % (Manual) 1 Eosinophils % Eosinophils % (Manual) 1 Basophils % Metamyelocytes % (manual) 9 H Nucleated Red Blood Cells % 0.0 Neutrophils # Neutrophils # (Manual) 1.3 L Band Neutrophils # 3.0 H Absolute Lymphocytes (Manual) 2.5 Lymphocytes # Monocytes # Absolute Monocytes (Manual) 0.0 L Eosinophils # Basophils # Metamyelocytes # 0.6 H Nucleated Red Blood Cells # Smudge Cells % 22 H Thrombocytosis 7 H Platelet Estimate NORMAL Polychromasia 3+ Poikilocytosis 1+ Anisocytosis 1+ Sodium Level 164 *H Potassium Level 3.5 Chloride Level 123 H Carbon Dioxide Level 25 Anion Gap 20 H Blood Urea Nitrogen 66 H Creatinine 1.59 H Glucose Level 180 Hemoglobin A1c 6.9 H Lactic Acid Level 3.2 *H Calcium Level 7.1 L Phosphorus Level 3.8 # Magnesium Level 2.3 Total Bilirubin 0.2 Direct Bilirubin 0.00 Indirect Bilirubin 0.2 Aspartate Amino Transf (AST/SGOT) 113 H Alanine Aminotransferase (ALT/SGPT) 78 H Alkaline Phosphatase 91 Total Protein 6.7 Albumin 2.8 L Globulin 3.90 H Albumin/Globulin Ratio 0.71 Triglycerides Level 73 Cholesterol Level 90 L LDL Cholesterol, Calculated 56 HDL Cholesterol 19 L Cholesterol/HDL Ratio 4.7 Thyroid Stimulating Hormone (TSH) 0.353 L Test 03/19/17 07:01 03/19/17 07:59 03/19/17 08:07 03/19/17 08:27 Bedside Glucose 146 121 Troponin I 0.292 *H Blood Gas Specimen Source Blood arterial Arterial Blood Date Drawn 03/19/2017 8:50:26 AM Arterial Blood pH (Temp corrected) 7.415 Arterial Blood pCO2 (Temp correct) 32.2 L Arterial Blood pO2 (Temp corrected) 76.3 L Arterial Blood HCO3 21.0 L Arterial Blood Base Excess -4.1 L Arterial Blood Oxygen Saturation 96.8 [facility] Test N/A Arterial Blood Gas Puncture Site Right Brachial Arterial Blood Carboxyhemoglobin 0.3 Arterial Blood Methemoglobin 0.2 Blood Gas A-a O2 Differential 102.6 H Oxyhemoglobin Percent 96.3 Total Hemoglobin 11.5 L Blood Gas Temperature 33.0 Blood Gas Respiration Rate 18.0 Blood Gas Actual Respiration Rate 18 Blood Gas Modality VENT - AC FiO2 30.0 Blood Gas Tidal Volume 550.0 Blood Gas Low PEEP Setting 5.0 Blood Gas Notified Whom TM Blood Gas Notified Time 03/19/2017 9:01:06 AM Test 03/19/17 10:15 Bedside Glucose 82 Medications Medications Current Medications Ondansetron HCl (Zofran Inj) 4 mg Q6H PRN IV NAUSEA AND/OR VOMITING; Start 03/18 at 10:30 Acetaminophen (Tylenol Tab) 650 mg Q6H PRN PO PAIN LEVEL 1-3 OR FEVER; Start at 10:30 Acetaminophen/ Hydrocodone Bitart ([place] (5/325)) 1 tab Q6H PRN PO MODERATE PAIN LEVEL 4-6; Start 03/18/17 at 10:30 Morphine Sulfate (morphine) 2 mg Q4H PRN IV SEVERE PAIN LEVEL 7-10; Start at 10:30 Docusate Sodium (Colace) 100 mg Q12H PRN PO CONSTIPATION; Start 03/18/17 at 10: 30 Magnesium Hydroxide (Milk Of Mag) 30 ml DAILY PRN PO CONSTIPATION; Start at 10:30 Sodium Biphosphate/ Sodium Phosphate (Fleet Enema) 133 ml DAILY PRN MS CONSTIPATION; Start 03/18/17 at 10:30 Famotidine (Pepcid Iv) 20 mg HS IV ; Start 03/18/17 at 21:00 Lorazepam (Ativan) 0.5 mg Q6H PRN IV ANXIETY; Start 03/18/17 at 10:30 Vancomycin HCl (Vanco Iv Per Pharmacy) VANCOMYCIN PER PHARMACY NOTE XX ; Start 03/18/17 at 10:30 Hydralazine HCl (Apresoline) 10 mg Q6H PRN IV ELEVATED BLOOD PRESSURE; Start at 10:30 Nitroglycerin (Nitroglycerin (Sl Tab) 0.4 Mg) 1 tab Q5M PRN SL ANGINA; Start at 10:30 Dextrose (D50w Syringe) 25 ml Q15M PRN IV Till BS 80 mg/dL or above x2; Start 03/18/17 at 10:30 Dextrose 50 ml 50 ml Q15M PRN IV Till BS 80 mg/dL or above x2; Start 03/18/17 at 10:30 Cefepime HCl (Maxipime 2gm/50 ml (Pmx)) 50 ml @ 100 mls/hr Q12 IVPB Last administered on 03/18/17t 13:37; Admin Dose 100 MLS/HR; Start 03/18/17 at 12:00 Acetaminophen (Tylenol Supp) 650 mg Q4H PRN MS TEMP > 37C Last administered on 03/18/17 19:08; Admin Dose 650 MG; Start 03/18/17 at 14:30 Acetaminophen (Tylenol Liquid) 650 mg Q4H PRN PO TEMP > 37C; Start 03/18/17 at 14:30 Acetaminophen (Tylenol Supp) 500 mg Q6H MS ; Start 03/19/17 at 14:30 Acetaminophen (Tylenol Liquid) 500 mg Q6H PO ; Start 03/19/17 at 14:30 Meperidine HCl (Demerol) 12.5 mg Q4H PRN IV POST OPERATIVE SHIVERING; Start 03/18/17 at 14:30 Meperidine HCl (Demerol) 25 mg Q4H PRN IV POST OPERATIVE SHIVERING; Start at 14:30 Eye Lubricant (Akwa Oint) 1 applic Q6 BOTH EYES ; Start 03/18/17 at 18:00 Eye Lubricant (Artificial Tears Oph) 2 drop Q6 BOTH EYES ; Start 03/18/17 at 18: 00 Diagnostic Test (Pha) (Accu-Chek) 1 ea Q1H XX Last administered on 03/19/17 10: 14; Admin Dose 1 EA; Start 03/18/17 at 14:30 Dextrose (D50w Syringe) 25 ml Q15M PRN IV Till BS 80 mg/dL or above x2; Start 03/18/17 at 14:30 Dextrose 50 ml 50 ml Q15M PRN IV Till BS 80 mg/dL or above x2; Start 03/18/17 at 14:30 Vasopressin 60 unit/Dextrose 60 ml @ 1.2 mls/hr Q12H IV Last administered on 20:28; Admin Dose 1.2 MLS/HR; Start 03/18/17 at 20:00 Vancomycin HCl/ Dextrose (Vancocin/D5W) 250 ml @ 125 mls/hr Q24H IVPB ; Start 03/19/17 at 14:00 Acetaminophen (Tylenol Supp) 650 mg Q4H PRN MS TEMP > 37C; Start 03/19/17 at 10: 00 Acetaminophen (Tylenol Liquid) 650 mg Q4H PRN PO TEMP > 37C; Start 03/19/17 at 10:00 Acetaminophen 500 mg 500 mg Q6H PO ; Start 03/20/17 at 10:00 Dextrose/Sodium Chloride 1,000 ml @ 80 mls/hr [id number] IV Last administered on 03/19/17t 10:43; Admin Dose 80 MLS/HR; Start 03/19/17 at 10:30 Norepinephrine 250 ml @ 1.875 mls/ hr TITRATE IV ; Start 03/19/17 at 10:30; Stop 03/19/17 at 18:00 Norepinephrine/ Dextrose (Levophed/D5W) 500 ml @ 1.875 mls/ hr TITRATE IV ; Start 03/19/17 at 10:30 Fentanyl 25 mcg 25 mcg Q10M IV ; Start 03/19/17 at 11:00; Status UNV Vecuronium [place]wick/Dextrose (Norcuron/D5W) 100 ml @ 4.5 mls/hr [id number] IV ; Start 03/19/17 at 10:36 BONIFACIO LOBO Mar 19, 2017 11:00
[2017-03-19 11:53] LABS: ABNORMAL IP MESSAGE 1; BASOPHIL # 0.1 10^3/ul (0.0-0.1); BASOPHILS % 0.9 % (0.0-2.0); EOSINOPHILS % 0.1 % (0.0-7.0); HEMATOCRIT 33.4 % (42.0-52.0); LYMPHOCYTES # 1.1 10^3/ul (0.8-2.9); LYMPHOCYTES % 13.6 % (15.0-51.0); MEAN CORPUSCULAR HEMOGLOBIN 28.7 pg (29.0-33.0); MEAN CORPUSCULAR HGB CONC 29.9 g/dl (32.0-37.0); MEAN CORPUSCULAR VOLUME 95.7 fl (82.0-101.0); MONOCYTE # 0.3 10^3/ul (0.3-0.9); MONOCYTES % 3.8 % (0.0-11.0); NEUTROPHIL # 6.3 10^3/ul (1.6-7.5); NEUTROPHILS % 80.8 % (39.0-77.0); PLATELET COUNT 149 10^3/UL (140-415); POSITIVE DIFF @See below; RED BLOOD COUNT 3.49 10^6/ul (4.70-6.10); RED CELL DISTRIBUTION WIDTH 15.6 % (11.5-14.5); WHITE BLOOD COUNT 7.8 10^3/ul (4.8-10.8)
[2017-03-19] MEDS: CEFEPIME 2GM/50 ML (PMX) 50 ML IVPB SCH ×2 (11:53→22:02)
[2017-03-19 12:05] LABS: INR 1.47; PROTIME 17.9 Sec (12.2-14.2); PT RATIO 1.4
[2017-03-19] MEDS: VECURONIUM 100 MG in DEXTROSE 5% 100 ML IV SCH ×2 (12:08→13:54)
[2017-03-19 12:20] LABS: ALBUMIN 2.4 g/dl (3.3-4.9); ALBUMIN/GLOBULIN RATIO 0.66; BILIRUBIN,INDIRECT 0.1 mg/dl (0-1.1); BILIRUBIN,TOTAL 0.1 mg/dl (0.2-1.3); CALCIUM 6.9 mg/dl (8.4-10.2); CREATININE 1.58 mg/dl (0.61-1.24); MAGNESIUM 2.2 mg/dl (1.7-2.5); PHOSPHORUS 4.1 mg/dl (2.5-4.9); POTASSIUM 3.7 mmol/L (3.5-5.1)
[2017-03-19] MEDS ORDERED: VANCOMYCIN 1.25 GM in SOD CHLORIDE 0.9% 250 ML IVPB SCH (12:30)
[2017-03-19] MEDS ORDERED: VANCOMYCIN 1 GM in DEXTROSE 5% 250 ML IVPB SCH (14:00)
[2017-03-19 14:23] LABS: AADO2 Arterial 108.7 mmHg (7.0-24.0); Arterial Base Excess -4.2 mmol/L (-3.0-3); Arterial COHb 0.3 % (0.0-3.0); Arterial HCO3 20.5 mmol/L (22.0-26.0); Arterial MetHb 0.3 % (0.0-1.5); Arterial Total Hemglobin 11.6 g/dl (12.0-18.0); MODE VENT - AC
[2017-03-19] MEDS: ACETAMINOPHEN 650MG/20.3ML CUP PO SCH ×2 (14:30→20:30)
[2017-03-19] MEDS: ACETAMINOPHEN 650 MG SUPP PR SCH ×2 (14:30→16:56)
--- NOTE | 2017-03-19 14:33 | RADRPT ---
Vent Rate: 74 bpm RR Interval: 0 msec MO Interval: 0 msec QRS Duration: 80 msec QT Interval: 500 msec QTC Interval: 555 msec P-R-T Apollo: 0 - 41 - 42 degrees Atrial fibrillation with a competing junctional pacemaker Prolonged QT Abnormal ECG Electronically Signed By: Bennett Argueta [id number]
[2017-03-19] MEDS ORDERED: PENDING SANTYL ORDER FOR WOUND CARE XX PRN (15:30)
[2017-03-19] MEDS ORDERED: COLLAGENASE 30 GM TUBE TOP SCH (16:30)
[2017-03-19] MEDS ORDERED: SOD CHLORIDE 0.9% 1,000 ML IV ONE (17:00)
[2017-03-19 18:42] LABS: ABNORMAL IP MESSAGE 1; HEMATOCRIT 30.7 % (42.0-52.0); HEMOGLOBIN 9.4 g/dl (14.0-18.0); MEAN CORPUSCULAR HEMOGLOBIN 28.7 pg (29.0-33.0); MEAN CORPUSCULAR HGB CONC 30.6 g/dl (32.0-37.0); MEAN CORPUSCULAR VOLUME 93.9 fl (82.0-101.0); MEAN PLATELET VOLUME 14.1 fl (7.4-10.4); PLATELET COUNT 118 10^3/UL (140-415); POSITIVE DIFF @See below; RED BLOOD COUNT 3.27 10^6/ul (4.70-6.10); RED CELL DISTRIBUTION WIDTH 15.6 % (11.5-14.5); WHITE BLOOD COUNT 8.3 10^3/ul (4.8-10.8)
[2017-03-19 18:55] LABS: INR 1.76; PROTIME 20.7 Sec (12.2-14.2); PT RATIO 1.6
[2017-03-19 18:57] LABS: PARTIAL THROMBOPLASTIN TIME 44.2 Sec (25.0-35.0)
[2017-03-19 19:07] LABS: ALBUMIN 2.5 g/dl (3.3-4.9); ALBUMIN/GLOBULIN RATIO 0.69; BILIRUBIN,INDIRECT 0.2 mg/dl (0-1.1); BILIRUBIN,TOTAL 0.2 mg/dl (0.2-1.3); CALCIUM 6.5 mg/dl (8.4-10.2); CREATININE 1.66 mg/dl (0.61-1.24); MAGNESIUM 2.1 mg/dl (1.7-2.5); PHOSPHORUS 4.1 mg/dl (2.5-4.9); POTASSIUM 3.5 mmol/L (3.5-5.1); TOTAL PROTEIN 6.1 g/dl (6.1-8.1)
[2017-03-19 19:13] LABS: ERYTHROBLAST% (NRBC) (M) 2 % (0-0); LYMPHOCYTES # 0.9 10^3/ul (0.8-2.9); METAMYELOCYTES %M 5 % (0-0); MONOCYTE # 0.2 10^3/ul (0.3-0.9); NEUTROPHIL # 1.2 10^3/ul (1.6-7.5)
[2017-03-19 19:19] LABS: MONOCYTES % (M) 3 % (0-11)
--- NOTE | 2017-03-19 21:12 | CONS ---
Date/Time of Note Date/Time of Note DATE: 03/19/17 TIME: 21:00 Assessment/Plan Assessment/Plan Chief Complaint/Hosp Course ID PROGRESS NOTE CURRENT ABX DAY #4=> Vanco IV + Cefepime 24H INTERVAL SUMMARY * Orally intubated on pressors, Fever >103 on presentation to ED ->Cardiac arrest hypothermia protocol * BCx *& Urine Cx (-) 24H EXAM GEN: VSS, NAD HEENT: Unremarkable =ETT-> Secure to vent Neck: Supple t CHEST: Rales/Rhonci CV: Radial pulse RRR ABD: Soft, non-tender, : NL male EXT: Warm SKIN: No rash, no diaphoresis ID ASSESSMENT 71 yo M PMHx TBI w/hydrocephalus, SZS disorder, HTN, s/p atrial ablation, depression admit with: 1. Septic shock w/fevers >103.+, tachycardia, leukocytosis, lactic acidosis on admission 2. Cardiac arrest: non-ST elevation SD as well.-echocardiogram showed normal LVEF 60%, RVSP 62 mmHg * (+)Troponins => Per cardiology team, likely type 2 event * Hypothermia protocol. 2. Respiratory failure: Again likely secondary to #! &#2 3. Aspiration PNA in setting cardiac arrest 4. Severe hypernatremia. Likely has severe intravascular volume depletion. Sodium initially 171, today 164. ( )MRSA Nares -> pending INVASIVES: ETT, N/OGT, FC CURRENT ABX DAY #4=> Vanco IV + Cefepime ID RECOMMENDATIONS 1. Continue current ABX '2. Await micro results \ Problems: Consultation Date/Type/Reason Admit Date/Time Mar 18, 2017 at 09:15 Initial Consult Date 03/19/17 Type of Consultation: ID Exam/Review of Systems Vital Signs Vitals Vital Signs Date Time Temp Pulse Resp B/P Pulse Ox O2 Delivery O2 Flow Rate FiO2 03/19/17 20:30 92 18 109/70 100 Mechanical Ventilator 03/19/17 20:00 93.0 03/19/17 17:00 30 03/18/17 07:27 15 Results Result Diagram: 03/19/17 1758 03/19/17 1758 Results 24 hrs Laboratory Tests Test 03/18/17 22:00 03/18/17 22:59 03/18/17 23:50 03/19/17 00:04 Urine Osmolality 346 Urine Random Sodium 15 L Bedside Glucose 270 H 261 H Troponin I 0.463 *H Test 03/19/17 00:12 03/19/17 01:03 03/19/17 01:57 03/19/17 02:27 Lactic Acid Level 2.8 *H Bedside Glucose 277 H 242 H Blood Gas Specimen Source Blood arterial Arterial Blood Date Drawn 03/19/2017 2:42:03 AM Arterial Blood pH (Temp corrected) 7.451 H Arterial Blood pCO2 (Temp correct) 29.2 L Arterial Blood pO2 (Temp corrected) 88.7 Arterial Blood HCO3 20.8 L Arterial Blood Base Excess -3.6 L Arterial Blood Oxygen Saturation 98.0 Stanford Test N/A Arterial Blood Gas Puncture Site Right Brachial Arterial Blood Carboxyhemoglobin 0.3 Arterial Blood Methemoglobin 0.2 Blood Gas A-a O2 Differential 130.3 H Oxyhemoglobin Percent 97.5 Total Hemoglobin 11.6 L Blood Gas Temperature 32.8 Blood Gas Respiration Rate 18.0 Blood Gas Actual Respiration Rate 18 Blood Gas Modality VENT - AC FiO2 35.0 Blood Gas Tidal Volume 550.0 Blood Gas Low PEEP Setting 5.0 Blood Gas Inspiratory Pressure 25.0 Blood Gas Notified Whom AA Blood Gas Notified Time 03/19/2017 2:57:12 AM Test 03/19/17 03:01 03/19/17 03:56 03/19/17 04:59 03/19/17 05:26 Bedside Glucose 230 H 201 174 White Blood Count 7.5 # Red Blood Count 3.63 #L Hemoglobin 10.1 #L Hematocrit 35.2 #L Mean Corpuscular Volume 97.0 Mean Corpuscular Hemoglobin 27.8 L Mean Corpuscular Hemoglobin Concent 28.7 L Red Cell Distribution Width 15.8 H Platelet Count 155 Mean Platelet Volume 13.3 H Neutrophils % Segmented Neutrophils % (Manual) 14 L Band Neutrophils % (Manual) 41 H Lymphocytes % Lymphocytes % (Manual) 34 Monocytes % Monocytes % (Manual) 1 Eosinophils % Eosinophils % (Manual) 1 Basophils % Metamyelocytes % (manual) 9 H Nucleated Red Blood Cells % 0.0 Neutrophils # Neutrophils # (Manual) 1.3 L Band Neutrophils # 3.0 H Absolute Lymphocytes (Manual) 2.5 Lymphocytes # Monocytes # Absolute Monocytes (Manual) 0.0 L Eosinophils # Basophils # Metamyelocytes # 0.6 H Nucleated Red Blood Cells # Smudge Cells % 22 H Thrombocytosis 7 H Platelet Estimate NORMAL Polychromasia 3+ Poikilocytosis 1+ Anisocytosis 1+ Sodium Level 164 *H Potassium Level 3.5 Chloride Level 123 H Carbon Dioxide Level 25 Anion Gap 20 H Blood Urea Nitrogen 66 H Creatinine 1.59 H Glucose Level 180 Hemoglobin A1c 6.9 H Lactic Acid Level 3.2 *H Calcium Level 7.1 L Phosphorus Level 3.8 # Magnesium Level 2.3 Total Bilirubin 0.2 Direct Bilirubin 0.00 Indirect Bilirubin 0.2 Aspartate Amino Transf (AST/SGOT) 113 H Alanine Aminotransferase (ALT/SGPT) 78 H Alkaline Phosphatase 91 Total Protein 6.7 Albumin 2.8 L Globulin 3.90 H Albumin/Globulin Ratio 0.71 Triglycerides Level 73 Cholesterol Level 90 L LDL Cholesterol, Calculated 56 HDL Cholesterol 19 L Cholesterol/HDL Ratio 4.7 Thyroid Stimulating Hormone (TSH) 0.353 L Test 03/19/17 05:56 03/19/17 07:01 03/19/17 07:59 03/19/17 08:07 Bedside Glucose 183 146 121 Troponin I 0.292 *H Test 03/19/17 08:27 03/19/17 10:15 03/19/17 11:24 03/19/17 11:32 Blood Gas Specimen Source Blood arterial Arterial Blood Date Drawn 03/19/2017 8:50:26 AM Arterial Blood pH (Temp corrected) 7.415 Arterial Blood pCO2 (Temp correct) 32.2 L Arterial Blood pO2 (Temp corrected) 76.3 L Arterial Blood HCO3 21.0 L Arterial Blood Base Excess -4.1 L Arterial Blood Oxygen Saturation 96.8 Stanford Test N/A Arterial Blood Gas Puncture Site Right Brachial Arterial Blood Carboxyhemoglobin 0.3 Arterial Blood Methemoglobin 0.2 Blood Gas A-a O2 Differential 102.6 H Oxyhemoglobin Percent 96.3 Total Hemoglobin 11.5 L Blood Gas Temperature 33.0 Blood Gas Respiration Rate 18.0 Blood Gas Actual Respiration Rate 18 Blood Gas Modality VENT - AC FiO2 30.0 Blood Gas Tidal Volume 550.0 Blood Gas Low PEEP Setting 5.0 Blood Gas Notified Whom TM Blood Gas Notified Time 03/19/2017 9:01:06 AM Bedside Glucose 82 77 White Blood Count 7.8 Red Blood Count 3.49 L Hemoglobin 10.0 L Hematocrit 33.4 L Mean Corpuscular Volume 95.7 Mean Corpuscular Hemoglobin 28.7 L Mean Corpuscular Hemoglobin Concent 29.9 L Red Cell Distribution Width 15.6 H Platelet Count 149 Mean Platelet Volume Neutrophils % 80.8 H Lymphocytes % 13.6 L Monocytes % 3.8 Eosinophils % 0.1 Basophils % 0.9 Nucleated Red Blood Cells % 0.0 Neutrophils # 6.3 Lymphocytes # 1.1 Monocytes # 0.3 Eosinophils # 0.0 Basophils # 0.1 Nucleated Red Blood Cells # 0.0 Prothrombin Time 17.9 H Prothrombin Time Ratio 1.4 INR International Normalized Ratio 1.47 Activated Partial Thromboplast Time 38.0 H Sodium Level 163 *H Potassium Level 3.7 Chloride Level 124 H Carbon Dioxide Level 24 Anion Gap 19 H Blood Urea Nitrogen 66 H Creatinine 1.58 H Glucose Level 77 # Lactic Acid Level 2.0 Calcium Level 6.9 L Phosphorus Level 4.1 Magnesium Level 2.2 Total Bilirubin 0.1 L Direct Bilirubin 0.00 Indirect Bilirubin 0.1 Aspartate Amino Transf (AST/SGOT) 116 H Alanine Aminotransferase (ALT/SGPT) 74 H Alkaline Phosphatase 83 Total Protein 6.0 L Albumin 2.4 L Globulin 3.60 H Albumin/Globulin Ratio 0.66 Test 03/19/17 12:49 03/19/17 14:27 03/19/17 14:36 03/19/17 16:51 Bedside Glucose 96 97 115 Blood Gas Specimen Source Blood arterial Arterial Blood Date Drawn 03/19/2017 2:15:25 PM Arterial Blood pH (Temp corrected) 7.429 Arterial Blood pCO2 (Temp correct) 30.3 L Arterial Blood pO2 (Temp corrected) 72.5 L Arterial Blood HCO3 20.5 L Arterial Blood Base Excess -4.2 L Arterial Blood Oxygen Saturation 96.6 Stanford Test N/A Arterial Blood Gas Puncture Site Right Brachial Arterial Blood Carboxyhemoglobin 0.3 Arterial Blood Methemoglobin 0.3 Blood Gas A-a O2 Differential 108.7 H Oxyhemoglobin Percent 96.0 Total Hemoglobin 11.6 L Blood Gas Temperature 32.9 Blood Gas Respiration Rate 18.0 Blood Gas Actual Respiration Rate 18 Blood Gas Modality VENT - AC FiO2 30.0 Blood Gas Tidal Volume 550.0 Blood Gas Low PEEP Setting 5.0 Blood Gas Notified Whom TM Blood Gas Notified Time 03/19/2017 2:23:01 PM Test 03/19/17 17:34 03/19/17 17:58 03/19/17 18:26 03/19/17 20:08 Bedside Glucose 116 107 89 White Blood Count 8.3 Red Blood Count 3.27 L Hemoglobin 9.4 L Hematocrit 30.7 L Mean Corpuscular Volume 93.9 Mean Corpuscular Hemoglobin 28.7 L Mean Corpuscular Hemoglobin Concent 30.6 L Red Cell Distribution Width 15.6 H Platelet Count 118 #L Mean Platelet Volume 14.1 H Neutrophils % 15.0 L Segmented Neutrophils % (Manual) 15 L Band Neutrophils % (Manual) 66 H Lymphocytes % 11.0 L Lymphocytes % (Manual) 11 L Monocytes % 3.0 Monocytes % (Manual) 3 Eosinophils % Basophils % Metamyelocytes % (manual) 5 H Nucleated Red Blood Cells % 2 H Neutrophils # 1.2 L Neutrophils # (Manual) 1.7 Band Neutrophils # 5.4 H Absolute Lymphocytes (Manual) 0.9 Lymphocytes # 0.9 Monocytes # 0.2 L Absolute Monocytes (Manual) 0.2 L Eosinophils # Basophils # Metamyelocytes # 0.4 H Nucleated Red Blood Cells # Prothrombin Time 20.7 H Prothrombin Time Ratio 1.6 INR International Normalized Ratio 1.76 Activated Partial Thromboplast Time 44.2 H Sodium Level 159 H Potassium Level 3.5 Chloride Level 121 H Carbon Dioxide Level 24 Anion Gap 18 H Blood Urea Nitrogen 68 H Creatinine 1.66 H Glucose Level 112 Lactic Acid Level 2.6 *H Calcium Level 6.5 L Phosphorus Level 4.1 Magnesium Level 2.1 Total Bilirubin 0.2 Direct Bilirubin 0.00 Indirect Bilirubin 0.2 Aspartate Amino Transf (AST/SGOT) 113 H Alanine Aminotransferase (ALT/SGPT) 67 Alkaline Phosphatase 76 Total Protein 6.1 Albumin 2.5 L Globulin 3.60 H Albumin/Globulin Ratio 0.69 Medications Medications Current Medications Ondansetron HCl (Zofran Inj) 4 mg Q6H PRN IV NAUSEA AND/OR VOMITING; Start 03/18 at 10:30 Acetaminophen (Tylenol Tab) 650 mg Q6H PRN PO PAIN LEVEL 1-3 OR FEVER; Start at 10:30 Acetaminophen/ Hydrocodone Bitart (Adena (5/325)) 1 tab Q6H PRN PO MODERATE PAIN LEVEL 4-6; Start 03/18/17 at 10:30 Morphine Sulfate (morphine) 2 mg Q4H PRN IV SEVERE PAIN LEVEL 7-10; Start at 10:30 Docusate Sodium (Colace) 100 mg Q12H PRN PO CONSTIPATION; Start 03/18/17 at 10: 30 Magnesium Hydroxide (Milk Of Mag) 30 ml DAILY PRN PO CONSTIPATION; Start at 10:30 Sodium Biphosphate/ Sodium Phosphate (Fleet Enema) 133 ml DAILY PRN IN CONSTIPATION; Start 03/18/17 at 10:30 Famotidine (Pepcid Iv) 20 mg HS IV ; Start 03/18/17 at 21:00 Lorazepam (Ativan) 0.5 mg Q6H PRN IV ANXIETY; Start 03/18/17 at 10:30 Vancomycin HCl (Vanco Iv Per Pharmacy) VANCOMYCIN PER PHARMACY NOTE XX ; Start 03/18/17 at 10:30 Hydralazine HCl (Apresoline) 10 mg Q6H PRN IV ELEVATED BLOOD PRESSURE; Start at 10:30 Nitroglycerin (Nitroglycerin (Sl Tab) 0.4 Mg) 1 tab Q5M PRN SL ANGINA; Start at 10:30 Dextrose (D50w Syringe) 25 ml Q15M PRN IV Till BS 80 mg/dL or above x2; Start 03/18/17 at 10:30 Dextrose 50 ml 50 ml Q15M PRN IV Till BS 80 mg/dL or above x2; Start 03/18/17 at 10:30 Cefepime HCl (Maxipime 2gm/50 ml (Pmx)) 50 ml @ 100 mls/hr Q12 IVPB Last administered on 03/19/17 11:53; Admin Dose 100 MLS/HR; Start 03/18/17 at 12:00 Acetaminophen (Tylenol Supp) 650 mg Q4H PRN IN TEMP > 37C Last administered on 03/18/17 19:08; Admin Dose 650 MG; Start 03/18/17 at 14:30 Acetaminophen (Tylenol Liquid) 650 mg Q4H PRN PO TEMP > 37C; Start 03/18/17 at 14:30 Acetaminophen (Tylenol Supp) 500 mg Q6H IN Last administered on 03/19/17 16:56 ; Admin Dose 500 MG; Start 03/19/17 at 14:30 Acetaminophen (Tylenol Liquid) 500 mg Q6H PO ; Start 03/19/17 at 14:30 Meperidine HCl (Demerol) 12.5 mg Q4H PRN IV POST OPERATIVE SHIVERING; Start 03/18/17 at 14:30 Meperidine HCl (Demerol) 25 mg Q4H PRN IV POST OPERATIVE SHIVERING; Start at 14:30 Eye Lubricant (Akwa Oint) 1 applic Q6 BOTH EYES Last administered on 03/19/17 17:35; Admin Dose 1 APPLIC; Start 03/18/17 at 18:00 Eye Lubricant (Artificial Tears Oph) 2 drop Q6 BOTH EYES Last administered on 17:35; Admin Dose 2 DROP; Start 03/18/17 at 18:00 Diagnostic Test (Pha) (Accu-Chek) 1 ea Q1H XX Last administered on 03/19/17 20: 32; Admin Dose 1 EA; Start 03/18/17 at 14:30 Dextrose (D50w Syringe) 25 ml Q15M PRN IV Till BS 80 mg/dL or above x2; Start 03/18/17 at 14:30 Dextrose 50 ml 50 ml Q15M PRN IV Till BS 80 mg/dL or above x2; Start 03/18/17 at 14:30 Vasopressin 60 unit/Dextrose 60 ml @ 1.2 mls/hr Q12H IV Last administered on 14:32; Admin Dose 1.8 MLS/HR; Start 03/18/17 at 20:00 Vancomycin HCl/ Dextrose (Vancocin/D5W) 250 ml @ 125 mls/hr Q24H IVPB Last administered on 03/19/17 15:45; Admin Dose 125 MLS/HR; Start 03/19/17 at 14:00 Acetaminophen (Tylenol Supp) 650 mg Q4H PRN IN TEMP > 37C; Start 03/19/17 at 10: 00 Acetaminophen (Tylenol Liquid) 650 mg Q4H PRN PO TEMP > 37C; Start 03/19/17 at 10:00 Acetaminophen 500 mg 500 mg Q6H PO ; Start 03/20/17 at 10:00 Dextrose/Sodium Chloride 1,000 ml @ 80 mls/hr [id number] IV Last administered on 03/19/17 10:43; Admin Dose 80 MLS/HR; Start 03/19/17 at 10:30 Norepinephrine 16 mg/Dextrose 500 ml @ 1.875 mls/ hr TITRATE IV Last administered on 03/19/17 16:01; Admin Dose 37.5 MLS/HR; Start 03/19/17 at 10:30 Vecuronium [place]/Dextrose (Norcuron/D5W) 100 ml @ 0 mls/hr TITRATE IV Last administered on 03/19/17 13:54; Admin Dose 5.46 MLS/HR; Start 03/19/17 at 12:00 Miscellaneous Information (Pending Santyl Order For Wound Care) This patient loza... PRN PRN XX WOUND CARE; Start 03/19/17 at 15:30 Collagenase (Santyl) 1 applic DAILY TOP ; Start 03/19/17 at 16:30 BRYANT MICHELE NP Mar 19, 2017 21:10
[2017-03-19 21:31] LABS: AADO2 Arterial 105.4 mmHg (7.0-24.0); Allen Test ACCEPTAB; Arterial Base Excess -3.7 mmol/L (-3.0-3); Arterial COHb 0.3 % (0.0-3.0); Arterial Fraction of Oxyhgb 96.6 % (93.0-99.0); Arterial HCO3 19.1 mmol/L (22.0-26.0); Arterial MetHb 0.3 % (0.0-1.5); Arterial Total Hemglobin 11.2 g/dl (12.0-18.0); Blood Gas Mean Airway Pressure 11; MODE VENT - AC
--- NOTE | 2017-03-19 22:12 | CONS ---
Date/Time of Note Date/Time of Note DATE: 03/19/17 TIME: 22:11 Assessment/Plan Assessment/Plan Chief Complaint/Hosp Course Assessment: Status post cardiac arrest - initial rhythm asystole, likely secondary to septic shock Septic shock and healthcare-associated pneumonia - on pressors and antibiotics Acute hypoxic respiratory failure - intubated and on mechanical ventilation Atrial fibrillation, likely chronic - physiologic ventricular rates NSTEMI - likely type 2, reported history of coronary artery disease (details unknown) Acute kidney injury Hypernatremia Rheumatoid arthritis History of traumatic brain injury, hydrocephalus, seizures Incomplete data Recommendations: -echocardiogram showed normal LVEF 60%, RVSP 62 mmHg -intravenous fluid hydration -Levophed to keep MAP>65 -hypothermia protocol Problems: Consultation Date/Type/Reason Admit Date/Time Mar 18, 2017 at 09:15 Initial Consult Date 03/19/17 Type of Consultation: Cardiology 24 HR Interval Summary Free Text/Dictation Off vasopressin, remains on Levophed drip. Rewarming from hypothermia protocol. Detailed Summary Additional Comments Unable to obtain review of systems, patient is intubated. Exam/Review of Systems Vital Signs Vitals Vital Signs Date Time Temp Pulse Resp B/P Pulse Ox O2 Delivery O2 Flow Rate FiO2 03/19/17 21:29 30 03/19/17 20:30 92 18 109/70 100 Mechanical Ventilator 03/19/17 20:00 93.0 03/18/17 07:27 15 Exam Constitutional: No alert, No distress Psych: other (sedated), No nl mood/affect Head: atraumatic, normocephalic Eyes: nl conjunctiva, nl lids ENMT: intubated, No nl lips & teeth (missing teeth) Neck: No jvd Respiratory: crackles/rales, diminished breath sounds Cardiovascular: irregular rhythm, No regular rate and rhythm Gastrointestinal: non-tender, soft Extremities: edema (LLE>RLE) Neurological: No nl mental status, No nl speech Skin: nl turgor Results Result Diagram: 03/19/17 1758 03/19/17 1758 Results 24 hrs Laboratory Tests Test 03/18/17 22:59 03/18/17 23:50 03/19/17 00:04 03/19/17 00:12 Bedside Glucose 270 H 261 H Troponin I 0.463 *H Lactic Acid Level 2.8 *H Test 03/19/17 01:03 03/19/17 01:57 03/19/17 02:27 03/19/17 03:01 Bedside Glucose 277 H 242 H 230 H Blood Gas Specimen Source Blood arterial Arterial Blood Date Drawn 03/19/2017 2:42:03 AM Arterial Blood pH (Temp corrected) 7.451 H Arterial Blood pCO2 (Temp correct) 29.2 L Arterial Blood pO2 (Temp corrected) 88.7 Arterial Blood HCO3 20.8 L Arterial Blood Base Excess -3.6 L Arterial Blood Oxygen Saturation 98.0 [facility] Test N/A Arterial Blood Gas Puncture Site Right Brachial Arterial Blood Carboxyhemoglobin 0.3 Arterial Blood Methemoglobin 0.2 Blood Gas A-a O2 Differential 130.3 H Oxyhemoglobin Percent 97.5 Total Hemoglobin 11.6 L Blood Gas Temperature 32.8 Blood Gas Respiration Rate 18.0 Blood Gas Actual Respiration Rate 18 Blood Gas Modality VENT - AC FiO2 35.0 Blood Gas Tidal Volume 550.0 Blood Gas Low PEEP Setting 5.0 Blood Gas Inspiratory Pressure 25.0 Blood Gas Notified Whom AA Blood Gas Notified Time 03/19/2017 2:57:12 AM Test 03/19/17 03:56 03/19/17 04:59 03/19/17 05:26 03/19/17 05:56 Bedside Glucose 201 174 183 White Blood Count 7.5 # Red Blood Count 3.63 #L Hemoglobin 10.1 #L Hematocrit 35.2 #L Mean Corpuscular Volume 97.0 Mean Corpuscular Hemoglobin 27.8 L Mean Corpuscular Hemoglobin Concent 28.7 L Red Cell Distribution Width 15.8 H Platelet Count 155 Mean Platelet Volume 13.3 H Neutrophils % Segmented Neutrophils % (Manual) 14 L Band Neutrophils % (Manual) 41 H Lymphocytes % Lymphocytes % (Manual) 34 Monocytes % Monocytes % (Manual) 1 Eosinophils % Eosinophils % (Manual) 1 Basophils % Metamyelocytes % (manual) 9 H Nucleated Red Blood Cells % 0.0 Neutrophils # Neutrophils # (Manual) 1.3 L Band Neutrophils # 3.0 H Absolute Lymphocytes (Manual) 2.5 Lymphocytes # Monocytes # Absolute Monocytes (Manual) 0.0 L Eosinophils # Basophils # Metamyelocytes # 0.6 H Nucleated Red Blood Cells # Smudge Cells % 22 H Thrombocytosis 7 H Platelet Estimate NORMAL Polychromasia 3+ Poikilocytosis 1+ Anisocytosis 1+ Sodium Level 164 *H Potassium Level 3.5 Chloride Level 123 H Carbon Dioxide Level 25 Anion Gap 20 H Blood Urea Nitrogen 66 H Creatinine 1.59 H Glucose Level 180 Hemoglobin A1c 6.9 H Lactic Acid Level 3.2 *H Calcium Level 7.1 L Phosphorus Level 3.8 # Magnesium Level 2.3 Total Bilirubin 0.2 Direct Bilirubin 0.00 Indirect Bilirubin 0.2 Aspartate Amino Transf (AST/SGOT) 113 H Alanine Aminotransferase (ALT/SGPT) 78 H Alkaline Phosphatase 91 Total Protein 6.7 Albumin 2.8 L Globulin 3.90 H Albumin/Globulin Ratio 0.71 Triglycerides Level 73 Cholesterol Level 90 L LDL Cholesterol, Calculated 56 HDL Cholesterol 19 L Cholesterol/HDL Ratio 4.7 Thyroid Stimulating Hormone (TSH) 0.353 L Test 03/19/17 07:01 03/19/17 07:59 03/19/17 08:07 03/19/17 08:27 Bedside Glucose 146 121 Troponin I 0.292 *H Blood Gas Specimen Source Blood arterial Arterial Blood Date Drawn 03/19/2017 8:50:26 AM Arterial Blood pH (Temp corrected) 7.415 Arterial Blood pCO2 (Temp correct) 32.2 L Arterial Blood pO2 (Temp corrected) 76.3 L Arterial Blood HCO3 21.0 L Arterial Blood Base Excess -4.1 L Arterial Blood Oxygen Saturation 96.8 [facility] Test N/A Arterial Blood Gas Puncture Site Right Brachial Arterial Blood Carboxyhemoglobin 0.3 Arterial Blood Methemoglobin 0.2 Blood Gas A-a O2 Differential 102.6 H Oxyhemoglobin Percent 96.3 Total Hemoglobin 11.5 L Blood Gas Temperature 33.0 Blood Gas Respiration Rate 18.0 Blood Gas Actual Respiration Rate 18 Blood Gas Modality VENT - AC FiO2 30.0 Blood Gas Tidal Volume 550.0 Blood Gas Low PEEP Setting 5.0 Blood Gas Notified Whom TM Blood Gas Notified Time 03/19/2017 9:01:06 AM Test 03/19/17 10:15 03/19/17 11:24 03/19/17 11:32 03/19/17 12:49 Bedside Glucose 82 77 96 White Blood Count 7.8 Red Blood Count 3.49 L Hemoglobin 10.0 L Hematocrit 33.4 L Mean Corpuscular Volume 95.7 Mean Corpuscular Hemoglobin 28.7 L Mean Corpuscular Hemoglobin Concent 29.9 L Red Cell Distribution Width 15.6 H Platelet Count 149 Mean Platelet Volume Neutrophils % 80.8 H Lymphocytes % 13.6 L Monocytes % 3.8 Eosinophils % 0.1 Basophils % 0.9 Nucleated Red Blood Cells % 0.0 Neutrophils # 6.3 Lymphocytes # 1.1 Monocytes # 0.3 Eosinophils # 0.0 Basophils # 0.1 Nucleated Red Blood Cells # 0.0 Prothrombin Time 17.9 H Prothrombin Time Ratio 1.4 INR International Normalized Ratio 1.47 Activated Partial Thromboplast Time 38.0 H Sodium Level 163 *H Potassium Level 3.7 Chloride Level 124 H Carbon Dioxide Level 24 Anion Gap 19 H Blood Urea Nitrogen 66 H Creatinine 1.58 H Glucose Level 77 # Lactic Acid Level 2.0 Calcium Level 6.9 L Phosphorus Level 4.1 Magnesium Level 2.2 Total Bilirubin 0.1 L Direct Bilirubin 0.00 Indirect Bilirubin 0.1 Aspartate Amino Transf (AST/SGOT) 116 H Alanine Aminotransferase (ALT/SGPT) 74 H Alkaline Phosphatase 83 Total Protein 6.0 L Albumin 2.4 L Globulin 3.60 H Albumin/Globulin Ratio 0.66 Test 03/19/17 14:27 03/19/17 14:36 03/19/17 16:51 03/19/17 17:34 Blood Gas Specimen Source Blood arterial Arterial Blood Date Drawn 03/19/2017 2:15:25 PM Arterial Blood pH (Temp corrected) 7.429 Arterial Blood pCO2 (Temp correct) 30.3 L Arterial Blood pO2 (Temp corrected) 72.5 L Arterial Blood HCO3 20.5 L Arterial Blood Base Excess -4.2 L Arterial Blood Oxygen Saturation 96.6 [facility] Test N/A Arterial Blood Gas Puncture Site Right Brachial Arterial Blood Carboxyhemoglobin 0.3 Arterial Blood Methemoglobin 0.3 Blood Gas A-a O2 Differential 108.7 H Oxyhemoglobin Percent 96.0 Total Hemoglobin 11.6 L Blood Gas Temperature 32.9 Blood Gas Respiration Rate 18.0 Blood Gas Actual Respiration Rate 18 Blood Gas Modality VENT - AC FiO2 30.0 Blood Gas Tidal Volume 550.0 Blood Gas Low PEEP Setting 5.0 Blood Gas Notified Whom TM Blood Gas Notified Time 03/19/2017 2:23:01 PM Bedside Glucose 97 115 116 Test 03/19/17 17:58 03/19/17 18:26 03/19/17 20:08 03/19/17 20:43 White Blood Count 8.3 Red Blood Count 3.27 L Hemoglobin 9.4 L Hematocrit 30.7 L Mean Corpuscular Volume 93.9 Mean Corpuscular Hemoglobin 28.7 L Mean Corpuscular Hemoglobin Concent 30.6 L Red Cell Distribution Width 15.6 H Platelet Count 118 #L Mean Platelet Volume 14.1 H Neutrophils % 15.0 L Segmented Neutrophils % (Manual) 15 L Band Neutrophils % (Manual) 66 H Lymphocytes % 11.0 L Lymphocytes % (Manual) 11 L Monocytes % 3.0 Monocytes % (Manual) 3 Eosinophils % Basophils % Metamyelocytes % (manual) 5 H Nucleated Red Blood Cells % 2 H Neutrophils # 1.2 L Neutrophils # (Manual) 1.7 Band Neutrophils # 5.4 H Absolute Lymphocytes (Manual) 0.9 Lymphocytes # 0.9 Monocytes # 0.2 L Absolute Monocytes (Manual) 0.2 L Eosinophils # Basophils # Metamyelocytes # 0.4 H Nucleated Red Blood Cells # Prothrombin Time 20.7 H Prothrombin Time Ratio 1.6 INR International Normalized Ratio 1.76 Activated Partial Thromboplast Time 44.2 H Sodium Level 159 H Potassium Level 3.5 Chloride Level 121 H Carbon Dioxide Level 24 Anion Gap 18 H Blood Urea Nitrogen 68 H Creatinine 1.66 H Glucose Level 112 Lactic Acid Level 2.6 *H Calcium Level 6.5 L Phosphorus Level 4.1 Magnesium Level 2.1 Total Bilirubin 0.2 Direct Bilirubin 0.00 Indirect Bilirubin 0.2 Aspartate Amino Transf (AST/SGOT) 113 H Alanine Aminotransferase (ALT/SGPT) 67 Alkaline Phosphatase 76 Total Protein 6.1 Albumin 2.5 L Globulin 3.60 H Albumin/Globulin Ratio 0.69 Bedside Glucose 107 89 Blood Gas Specimen Source Blood arterial Arterial Blood Date Drawn 03/19/2017 9:19:37 PM Arterial Blood pH (Temp corrected) 7.499 H Arterial Blood pCO2 (Temp correct) 24.5 L Arterial Blood pO2 (Temp corrected) 81.9 Arterial Blood HCO3 19.1 L Arterial Blood Base Excess -3.7 L Arterial Blood Oxygen Saturation 97.2 [facility] Test ACCEPTAB Arterial Blood Gas Puncture Site Right Radial Arterial Blood Carboxyhemoglobin 0.3 Arterial Blood Methemoglobin 0.3 Blood Gas A-a O2 Differential 105.4 H Oxyhemoglobin Percent 96.6 Total Hemoglobin 11.2 L Blood Gas Temperature 34.1 Blood Gas Respiration Rate 18.0 Blood Gas Actual Respiration Rate 18 Blood Gas Modality VENT - AC FiO2 30.0 Blood Gas Tidal Volume 550.0 Blood Gas Mean Airway Pressure 11 Blood Gas Low PEEP Setting 5.0 Blood Gas Inspiratory Pressure 23.0 Blood Gas Notified Whom LEAH WAGNER Blood Gas Notified Time 03/19/2017 9:31:21 PM Medications Medications Current Medications Ondansetron HCl (Zofran Inj) 4 mg Q6H PRN IV NAUSEA AND/OR VOMITING; Start 03/18 at 10:30 Acetaminophen (Tylenol Tab) 650 mg Q6H PRN PO PAIN LEVEL 1-3 OR FEVER; Start at 10:30 Acetaminophen/ Hydrocodone Bitart ([place] (5/325)) 1 tab Q6H PRN PO MODERATE PAIN LEVEL 4-6; Start 03/18/17 at 10:30 Morphine Sulfate (morphine) 2 mg Q4H PRN IV SEVERE PAIN LEVEL 7-10; Start at 10:30 Docusate Sodium (Colace) 100 mg Q12H PRN PO CONSTIPATION; Start 03/18/17 at 10: 30 Magnesium Hydroxide (Milk Of Mag) 30 ml DAILY PRN PO CONSTIPATION; Start at 10:30 Sodium Biphosphate/ Sodium Phosphate (Fleet Enema) 133 ml DAILY PRN GA CONSTIPATION; Start 03/18/17 at 10:30 Famotidine (Pepcid Iv) 20 mg HS IV Last administered on 03/19/17t 21:05; Admin Dose 20 MG; Start 03/18/17 at 21:00 Lorazepam (Ativan) 0.5 mg Q6H PRN IV ANXIETY; Start 03/18/17 at 10:30 Vancomycin HCl (Vanco Iv Per Pharmacy) VANCOMYCIN PER PHARMACY NOTE XX ; Start 03/18/17 at 10:30 Hydralazine HCl (Apresoline) 10 mg Q6H PRN IV ELEVATED BLOOD PRESSURE; Start at 10:30 Nitroglycerin (Nitroglycerin (Sl Tab) 0.4 Mg) 1 tab Q5M PRN SL ANGINA; Start at 10:30 Dextrose (D50w Syringe) 25 ml Q15M PRN IV Till BS 80 mg/dL or above x2; Start 03/18/17 at 10:30 Dextrose 50 ml 50 ml Q15M PRN IV Till BS 80 mg/dL or above x2; Start 03/18/17 at 10:30 Cefepime HCl (Maxipime 2gm/50 ml (Pmx)) 50 ml @ 100 mls/hr Q12 IVPB Last administered on 03/19/17 22:02; Admin Dose 100 MLS/HR; Start 03/18/17 at 12:00 Acetaminophen (Tylenol Supp) 650 mg Q4H PRN GA TEMP > 37C Last administered on 03/18/17 19:08; Admin Dose 650 MG; Start 03/18/17 at 14:30 Acetaminophen (Tylenol Liquid) 650 mg Q4H PRN PO TEMP > 37C; Start 03/18/17 at 14:30 Acetaminophen (Tylenol Supp) 500 mg Q6H GA Last administered on 03/19/17 16:56 ; Admin Dose 500 MG; Start 03/19/17 at 14:30 Acetaminophen (Tylenol Liquid) 500 mg Q6H PO ; Start 03/19/17 at 14:30 Meperidine HCl (Demerol) 12.5 mg Q4H PRN IV POST OPERATIVE SHIVERING; Start 03/18/17 at 14:30 Meperidine HCl (Demerol) 25 mg Q4H PRN IV POST OPERATIVE SHIVERING; Start at 14:30 Eye Lubricant ([place] Oint) 1 applic Q6 BOTH EYES Last administered on 03/19/17 17:35; Admin Dose 1 APPLIC; Start 03/18/17 at 18:00 Eye Lubricant (Artificial Tears Oph) 2 drop Q6 BOTH EYES Last administered on 17:35; Admin Dose 2 DROP; Start 03/18/17 at 18:00 Diagnostic Test (Pha) (Accu-Chek) 1 ea Q1H XX Last administered on 03/19/17 20: 32; Admin Dose 1 EA; Start 03/18/17 at 14:30 Dextrose (D50w Syringe) 25 ml Q15M PRN IV Till BS 80 mg/dL or above x2; Start 03/18/17 at 14:30 Dextrose 50 ml 50 ml Q15M PRN IV Till BS 80 mg/dL or above x2; Start 03/18/17 at 14:30 Vasopressin 60 unit/Dextrose 60 ml @ 1.2 mls/hr Q12H IV Last administered on 14:32; Admin Dose 1.8 MLS/HR; Start 03/18/17 at 20:00 Vancomycin HCl/ Dextrose (Vancocin/D5W) 250 ml @ 125 mls/hr Q24H IVPB Last administered on 03/19/17 15:45; Admin Dose 125 MLS/HR; Start 03/19/17 at 14:00 Acetaminophen (Tylenol Supp) 650 mg Q4H PRN GA TEMP > 37C; Start 03/19/17 at 10: 00 Acetaminophen (Tylenol Liquid) 650 mg Q4H PRN PO TEMP > 37C; Start 03/19/17 at 10:00 Acetaminophen 500 mg 500 mg Q6H PO ; Start 03/20/17 at 10:00 Dextrose/Sodium Chloride 1,000 ml @ 80 mls/hr [id number] IV Last administered on 03/19/17 10:43; Admin Dose 80 MLS/HR; Start 03/19/17 at 10:30 Norepinephrine 16 mg/Dextrose 500 ml @ 1.875 mls/ hr TITRATE IV Last administered on 03/19/17 16:01; Admin Dose 37.5 MLS/HR; Start 03/19/17 at 10:30 Vecuronium Rumely/Dextrose (Norcuron/D5W) 100 ml @ 0 mls/hr TITRATE IV Last administered on 03/19/17 13:54; Admin Dose 5.46 MLS/HR; Start 03/19/17 at 12:00 Miscellaneous Information (Pending Santyl Order For Wound Care) This patient loza... PRN PRN XX WOUND CARE; Start 03/19/17 at 15:30 Collagenase (Santyl) 1 applic DAILY TOP ; Start 03/19/17 at 16:30 HARDIK CAMPBELL MD Mar 19, 2017 22:12
[2017-03-20] VITALS (41 sets, daily range): BP systolic 60–144; BP diastolic 32–85; PULSE 0–117; RESP 0–18
[2017-03-20] MEDS: INSULIN HUMAN REGULAR 100 UNIT in SOD CHLORIDE 0.9% 99 ML IV SCH (00:11)
--- NOTE | 2017-03-20 00:11 | CONS ---
Date/Time of Note Date/Time of Note DATE: 03/20/17 TIME: 00:10 Assessment/Plan Assessment/Plan Chief Complaint/Hosp Course /P MARLENA HYPERNATREMIA CARDIAC ARREST [facility] DM PRE RENAL AZOTEMIA PLAN IV FLUID free wate Problems: Consultation Date/Type/Reason Admit Date/Time Mar 18, 2017 at 09:15 Initial Consult Date 03/18/17 Type of Consultation: renal 24 HR Interval Summary Constitutional: other (on vent s/p hypothermia protocol) Exam/Review of Systems Vital Signs Vitals Vital Signs Date Time Temp Pulse Resp B/P Pulse Ox O2 Delivery O2 Flow Rate FiO2 03/19/17 22:44 87 18 100 30 03/19/17 22:00 93.7 93/61 Mechanical Ventilator 03/18/17 07:27 15 Intake and Output 03/19/17 03/19/17 03/20/17 15:00 23:00 07:00 Intake Total 996.87 ml 1172.32 ml 300.92 ml Output Total 50 ml 736 ml Balance 946.87 ml 436.32 ml 300.92 ml Exam Respiratory: diminished breath sounds Cardiovascular: regular rate and rhythm Gastrointestinal: bowel sounds (+), soft Extremities: edema (++) Results Result Diagram: 03/19/17 1758 03/19/17 1758 Results 24 hrs Laboratory Tests Test 03/19/17 00:12 03/19/17 01:03 03/19/17 01:57 03/19/17 02:27 Lactic Acid Level 2.8 *H Bedside Glucose 277 H 242 H Blood Gas Specimen Source Blood arterial Arterial Blood Date Drawn 03/19/2017 2:42:03 AM Arterial Blood pH (Temp corrected) 7.451 H Arterial Blood pCO2 (Temp correct) 29.2 L Arterial Blood pO2 (Temp corrected) 88.7 Arterial Blood HCO3 20.8 L Arterial Blood Base Excess -3.6 L Arterial Blood Oxygen Saturation 98.0 [facility] Test N/A Arterial Blood Gas Puncture Site Right Brachial Arterial Blood Carboxyhemoglobin 0.3 Arterial Blood Methemoglobin 0.2 Blood Gas A-a O2 Differential 130.3 H Oxyhemoglobin Percent 97.5 Total Hemoglobin 11.6 L Blood Gas Temperature 32.8 Blood Gas Respiration Rate 18.0 Blood Gas Actual Respiration Rate 18 Blood Gas Modality VENT - AC FiO2 35.0 Blood Gas Tidal Volume 550.0 Blood Gas Low PEEP Setting 5.0 Blood Gas Inspiratory Pressure 25.0 Blood Gas Notified Whom AA Blood Gas Notified Time 03/19/2017 2:57:12 AM Test 03/19/17 03:01 03/19/17 03:56 03/19/17 04:59 03/19/17 05:26 Bedside Glucose 230 H 201 174 White Blood Count 7.5 # Red Blood Count 3.63 #L Hemoglobin 10.1 #L Hematocrit 35.2 #L Mean Corpuscular Volume 97.0 Mean Corpuscular Hemoglobin 27.8 L Mean Corpuscular Hemoglobin Concent 28.7 L Red Cell Distribution Width 15.8 H Platelet Count 155 Mean Platelet Volume 13.3 H Neutrophils % Segmented Neutrophils % (Manual) 14 L Band Neutrophils % (Manual) 41 H Lymphocytes % Lymphocytes % (Manual) 34 Monocytes % Monocytes % (Manual) 1 Eosinophils % Eosinophils % (Manual) 1 Basophils % Metamyelocytes % (manual) 9 H Nucleated Red Blood Cells % 0.0 Neutrophils # Neutrophils # (Manual) 1.3 L Band Neutrophils # 3.0 H Absolute Lymphocytes (Manual) 2.5 Lymphocytes # Monocytes # Absolute Monocytes (Manual) 0.0 L Eosinophils # Basophils # Metamyelocytes # 0.6 H Nucleated Red Blood Cells # Smudge Cells % 22 H Thrombocytosis 7 H Platelet Estimate NORMAL Polychromasia 3+ Poikilocytosis 1+ Anisocytosis 1+ Sodium Level 164 *H Potassium Level 3.5 Chloride Level 123 H Carbon Dioxide Level 25 Anion Gap 20 H Blood Urea Nitrogen 66 H Creatinine 1.59 H Glucose Level 180 Hemoglobin A1c 6.9 H Lactic Acid Level 3.2 *H Calcium Level 7.1 L Phosphorus Level 3.8 # Magnesium Level 2.3 Total Bilirubin 0.2 Direct Bilirubin 0.00 Indirect Bilirubin 0.2 Aspartate Amino Transf (AST/SGOT) 113 H Alanine Aminotransferase (ALT/SGPT) 78 H Alkaline Phosphatase 91 Total Protein 6.7 Albumin 2.8 L Globulin 3.90 H Albumin/Globulin Ratio 0.71 Triglycerides Level 73 Cholesterol Level 90 L LDL Cholesterol, Calculated 56 HDL Cholesterol 19 L Cholesterol/HDL Ratio 4.7 Thyroid Stimulating Hormone (TSH) 0.353 L Test 03/19/17 05:56 03/19/17 07:01 03/19/17 07:59 03/19/17 08:07 Bedside Glucose 183 146 121 Troponin I 0.292 *H Test 03/19/17 08:27 03/19/17 10:15 03/19/17 11:24 03/19/17 11:32 Blood Gas Specimen Source Blood arterial Arterial Blood Date Drawn 03/19/2017 8:50:26 AM Arterial Blood pH (Temp corrected) 7.415 Arterial Blood pCO2 (Temp correct) 32.2 L Arterial Blood pO2 (Temp corrected) 76.3 L Arterial Blood HCO3 21.0 L Arterial Blood Base Excess -4.1 L Arterial Blood Oxygen Saturation 96.8 [facility] Test N/A Arterial Blood Gas Puncture Site Right Brachial Arterial Blood Carboxyhemoglobin 0.3 Arterial Blood Methemoglobin 0.2 Blood Gas A-a O2 Differential 102.6 H Oxyhemoglobin Percent 96.3 Total Hemoglobin 11.5 L Blood Gas Temperature 33.0 Blood Gas Respiration Rate 18.0 Blood Gas Actual Respiration Rate 18 Blood Gas Modality VENT - AC FiO2 30.0 Blood Gas Tidal Volume 550.0 Blood Gas Low PEEP Setting 5.0 Blood Gas Notified Whom TM Blood Gas Notified Time 03/19/2017 9:01:06 AM Bedside Glucose 82 77 White Blood Count 7.8 Red Blood Count 3.49 L Hemoglobin 10.0 L Hematocrit 33.4 L Mean Corpuscular Volume 95.7 Mean Corpuscular Hemoglobin 28.7 L Mean Corpuscular Hemoglobin Concent 29.9 L Red Cell Distribution Width 15.6 H Platelet Count 149 Mean Platelet Volume Neutrophils % 80.8 H Lymphocytes % 13.6 L Monocytes % 3.8 Eosinophils % 0.1 Basophils % 0.9 Nucleated Red Blood Cells % 0.0 Neutrophils # 6.3 Lymphocytes # 1.1 Monocytes # 0.3 Eosinophils # 0.0 Basophils # 0.1 Nucleated Red Blood Cells # 0.0 Prothrombin Time 17.9 H Prothrombin Time Ratio 1.4 INR International Normalized Ratio 1.47 Activated Partial Thromboplast Time 38.0 H Sodium Level 163 *H Potassium Level 3.7 Chloride Level 124 H Carbon Dioxide Level 24 Anion Gap 19 H Blood Urea Nitrogen 66 H Creatinine 1.58 H Glucose Level 77 # Lactic Acid Level 2.0 Calcium Level 6.9 L Phosphorus Level 4.1 Magnesium Level 2.2 Total Bilirubin 0.1 L Direct Bilirubin 0.00 Indirect Bilirubin 0.1 Aspartate Amino Transf (AST/SGOT) 116 H Alanine Aminotransferase (ALT/SGPT) 74 H Alkaline Phosphatase 83 Total Protein 6.0 L Albumin 2.4 L Globulin 3.60 H Albumin/Globulin Ratio 0.66 Test 03/19/17 12:49 03/19/17 14:27 03/19/17 14:36 03/19/17 16:51 Bedside Glucose 96 97 115 Blood Gas Specimen Source Blood arterial Arterial Blood Date Drawn 03/19/2017 2:15:25 PM Arterial Blood pH (Temp corrected) 7.429 Arterial Blood pCO2 (Temp correct) 30.3 L Arterial Blood pO2 (Temp corrected) 72.5 L Arterial Blood HCO3 20.5 L Arterial Blood Base Excess -4.2 L Arterial Blood Oxygen Saturation 96.6 [facility] Test N/A Arterial Blood Gas Puncture Site Right Brachial Arterial Blood Carboxyhemoglobin 0.3 Arterial Blood Methemoglobin 0.3 Blood Gas A-a O2 Differential 108.7 H Oxyhemoglobin Percent 96.0 Total Hemoglobin 11.6 L Blood Gas Temperature 32.9 Blood Gas Respiration Rate 18.0 Blood Gas Actual Respiration Rate 18 Blood Gas Modality VENT - AC FiO2 30.0 Blood Gas Tidal Volume 550.0 Blood Gas Low PEEP Setting 5.0 Blood Gas Notified Whom TM Blood Gas Notified Time 03/19/2017 2:23:01 PM Test 03/19/17 17:34 03/19/17 17:58 03/19/17 18:26 03/19/17 20:08 Bedside Glucose 116 107 89 White Blood Count 8.3 Red Blood Count 3.27 L Hemoglobin 9.4 L Hematocrit 30.7 L Mean Corpuscular Volume 93.9 Mean Corpuscular Hemoglobin 28.7 L Mean Corpuscular Hemoglobin Concent 30.6 L Red Cell Distribution Width 15.6 H Platelet Count 118 #L Mean Platelet Volume 14.1 H Neutrophils % 15.0 L Segmented Neutrophils % (Manual) 15 L Band Neutrophils % (Manual) 66 H Lymphocytes % 11.0 L Lymphocytes % (Manual) 11 L Monocytes % 3.0 Monocytes % (Manual) 3 Eosinophils % Basophils % Metamyelocytes % (manual) 5 H Nucleated Red Blood Cells % 2 H Neutrophils # 1.2 L Neutrophils # (Manual) 1.7 Band Neutrophils # 5.4 H Absolute Lymphocytes (Manual) 0.9 Lymphocytes # 0.9 Monocytes # 0.2 L Absolute Monocytes (Manual) 0.2 L Eosinophils # Basophils # Metamyelocytes # 0.4 H Nucleated Red Blood Cells # Prothrombin Time 20.7 H Prothrombin Time Ratio 1.6 INR International Normalized Ratio 1.76 Activated Partial Thromboplast Time 44.2 H Sodium Level 159 H Potassium Level 3.5 Chloride Level 121 H Carbon Dioxide Level 24 Anion Gap 18 H Blood Urea Nitrogen 68 H Creatinine 1.66 H Glucose Level 112 Lactic Acid Level 2.6 *H Calcium Level 6.5 L Phosphorus Level 4.1 Magnesium Level 2.1 Total Bilirubin 0.2 Direct Bilirubin 0.00 Indirect Bilirubin 0.2 Aspartate Amino Transf (AST/SGOT) 113 H Alanine Aminotransferase (ALT/SGPT) 67 Alkaline Phosphatase 76 Total Protein 6.1 Albumin 2.5 L Globulin 3.60 H Albumin/Globulin Ratio 0.69 Test 03/19/17 20:43 03/19/17 22:06 03/19/17 23:55 Blood Gas Specimen Source Blood arterial Arterial Blood Date Drawn 03/19/2017 9:19:37 PM Arterial Blood pH (Temp corrected) 7.499 H Arterial Blood pCO2 (Temp correct) 24.5 L Arterial Blood pO2 (Temp corrected) 81.9 Arterial Blood HCO3 19.1 L Arterial Blood Base Excess -3.7 L Arterial Blood Oxygen Saturation 97.2 [facility] Test ACCEPTAB Arterial Blood Gas Puncture Site Right Radial Arterial Blood Carboxyhemoglobin 0.3 Arterial Blood Methemoglobin 0.3 Blood Gas A-a O2 Differential 105.4 H Oxyhemoglobin Percent 96.6 Total Hemoglobin 11.2 L Blood Gas Temperature 34.1 Blood Gas Respiration Rate 18.0 Blood Gas Actual Respiration Rate 18 Blood Gas Modality VENT - AC FiO2 30.0 Blood Gas Tidal Volume 550.0 Blood Gas Mean Airway Pressure 11 Blood Gas Low PEEP Setting 5.0 Blood Gas Inspiratory Pressure 23.0 Blood Gas Notified Gonzalo LYNN RCP Blood Gas Notified Time 03/19/2017 9:31:21 PM Bedside Glucose 108 140 Medications Medications Current Medications Ondansetron HCl (Zofran Inj) 4 mg Q6H PRN IV NAUSEA AND/OR VOMITING; Start 03/18 at 10:30 Acetaminophen (Tylenol Tab) 650 mg Q6H PRN PO PAIN LEVEL 1-3 OR FEVER; Start at 10:30 Acetaminophen/ Hydrocodone Bitart ([place] (5/325)) 1 tab Q6H PRN PO MODERATE PAIN LEVEL 4-6; Start 03/18/17 at 10:30 Morphine Sulfate (morphine) 2 mg Q4H PRN IV SEVERE PAIN LEVEL 7-10; Start at 10:30 Docusate Sodium (Colace) 100 mg Q12H PRN PO CONSTIPATION; Start 03/18/17 at 10: 30 Magnesium Hydroxide (Milk Of Mag) 30 ml DAILY PRN PO CONSTIPATION; Start at 10:30 Sodium Biphosphate/ Sodium Phosphate (Fleet Enema) 133 ml DAILY PRN MO CONSTIPATION; Start 03/18/17 at 10:30 Famotidine (Pepcid Iv) 20 mg HS IV Last administered on 03/19/17 21:05; Admin Dose 20 MG; Start 03/18/17 at 21:00 Lorazepam (Ativan) 0.5 mg Q6H PRN IV ANXIETY; Start 03/18/17 at 10:30 Vancomycin HCl (Vanco Iv Per Pharmacy) VANCOMYCIN PER PHARMACY NOTE XX ; Start 03/18/17 at 10:30 Hydralazine HCl (Apresoline) 10 mg Q6H PRN IV ELEVATED BLOOD PRESSURE; Start at 10:30 Nitroglycerin (Nitroglycerin (Sl Tab) 0.4 Mg) 1 tab Q5M PRN SL ANGINA; Start at 10:30 Dextrose (D50w Syringe) 25 ml Q15M PRN IV Till BS 80 mg/dL or above x2; Start 03/18/17 at 10:30 Dextrose 50 ml 50 ml Q15M PRN IV Till BS 80 mg/dL or above x2; Start 03/18/17 at 10:30 Cefepime HCl (Maxipime 2gm/50 ml (Pmx)) 50 ml @ 100 mls/hr Q12 IVPB Last administered on 03/19/17 22:02; Admin Dose 100 MLS/HR; Start 03/18/17 at 12:00 Acetaminophen (Tylenol Supp) 650 mg Q4H PRN MO TEMP > 37C Last administered on 03/18/17 19:08; Admin Dose 650 MG; Start 03/18/17 at 14:30 Acetaminophen (Tylenol Liquid) 650 mg Q4H PRN PO TEMP > 37C; Start 03/18/17 at 14:30 Acetaminophen (Tylenol Supp) 500 mg Q6H MO Last administered on 03/19/17 16:56 ; Admin Dose 500 MG; Start 03/19/17 at 14:30 Acetaminophen (Tylenol Liquid) 500 mg Q6H PO ; Start 03/19/17 at 14:30 Meperidine HCl (Demerol) 12.5 mg Q4H PRN IV POST OPERATIVE SHIVERING; Start 03/18/17 at 14:30 Meperidine HCl (Demerol) 25 mg Q4H PRN IV POST OPERATIVE SHIVERING; Start at 14:30 Eye Lubricant ([place]wa Oint) 1 applic Q6 BOTH EYES Last administered on 03/19/17 23:59; Admin Dose 1 APPLIC; Start 03/18/17 at 18:00 Eye Lubricant (Artificial Tears Oph) 2 drop Q6 BOTH EYES Last administered on 23:59; Admin Dose 2 DROP; Start 03/18/17 at 18:00 Diagnostic Test (Pha) (Accu-Chek) 1 ea Q1H XX Last administered on 03/19/17 23: 01; Admin Dose 1 EA; Start 03/18/17 at 14:30 Dextrose (D50w Syringe) 25 ml Q15M PRN IV Till BS 80 mg/dL or above x2; Start 03/18/17 at 14:30 Dextrose 50 ml 50 ml Q15M PRN IV Till BS 80 mg/dL or above x2; Start 03/18/17 at 14:30 Vasopressin 60 unit/Dextrose 60 ml @ 1.2 mls/hr Q12H IV Last administered on 14:32; Admin Dose 1.8 MLS/HR; Start 03/18/17 at 20:00 Vancomycin HCl/ Dextrose (Vancocin/D5W) 250 ml @ 125 mls/hr Q24H IVPB Last administered on 03/19/17 15:45; Admin Dose 125 MLS/HR; Start 03/19/17 at 14:00 Acetaminophen (Tylenol Supp) 650 mg Q4H PRN MO TEMP > 37C; Start 03/19/17 at 10: 00 Acetaminophen (Tylenol Liquid) 650 mg Q4H PRN PO TEMP > 37C; Start 03/19/17 at 10:00 Acetaminophen 500 mg 500 mg Q6H PO ; Start 03/20/17 at 10:00 Dextrose/Sodium Chloride 1,000 ml @ 80 mls/hr [id number] IV Last administered on 03/19/17 10:43; Admin Dose 80 MLS/HR; Start 03/19/17 at 10:30 Norepinephrine 16 mg/Dextrose 500 ml @ 1.875 mls/ hr TITRATE IV Last administered on 03/19/17 16:01; Admin Dose 37.5 MLS/HR; Start 03/19/17 at 10:30 Vecuronium [place]/Dextrose (Norcuron/D5W) 100 ml @ 0 mls/hr TITRATE IV Last administered on 03/19/17 13:54; Admin Dose 5.46 MLS/HR; Start 03/19/17 at 12:00 Miscellaneous Information (Pending Santyl Order For Wound Care) This patient loza... PRN PRN XX WOUND CARE; Start 03/19/17 at 15:30 Collagenase (Santyl) 1 applic DAILY TOP ; Start 03/19/17 at 16:30 LOUISE PURVIS MD Mar 20, 2017 00:11
[2017-03-20] MEDS: ACCU-CHEK XX SCH ×7 (00:48→06:41)
[2017-03-20] MEDS ORDERED: ATROPINE 1 MG/10 ML SYRINGE ONE (01:00)
[2017-03-20] MEDS ORDERED: EPINEPHrine 100 MCG/10 ML SYG IV ONE (01:00)
[2017-03-20] MEDS ORDERED: NA BICARBONATE 8.4% 50 ML SYG ONE (01:00)
[2017-03-20 01:11] LABS: ABNORMAL IP MESSAGE 1; BASOPHIL # 0.1 10^3/ul (0.0-0.1); BASOPHILS % 0.9 % (0.0-2.0); HEMATOCRIT 29.8 % (42.0-52.0); HEMOGLOBIN 9.3 g/dl (14.0-18.0); LYMPHOCYTES # 0.8 10^3/ul (0.8-2.9); LYMPHOCYTES % 8.3 % (15.0-51.0); MEAN CORPUSCULAR HEMOGLOBIN 29.2 pg (29.0-33.0); MEAN CORPUSCULAR HGB CONC 31.2 g/dl (32.0-37.0); MEAN CORPUSCULAR VOLUME 93.4 fl (82.0-101.0); MONOCYTE # 0.1 10^3/ul (0.3-0.9); MONOCYTES % 1.4 % (0.0-11.0); NEUTROPHIL # 8.4 10^3/ul (1.6-7.5); NEUTROPHILS % 87.1 % (39.0-77.0); PLATELET COUNT 115 10^3/UL (140-415); POSITIVE DIFF @See below; RED BLOOD COUNT 3.19 10^6/ul (4.70-6.10); RED CELL DISTRIBUTION WIDTH 15.4 % (11.5-14.5); WHITE BLOOD COUNT 9.7 10^3/ul (4.8-10.8)
[2017-03-20 01:27] LABS: INR 1.52; PROTIME 18.4 Sec (12.2-14.2); PT RATIO 1.4
[2017-03-20 01:28] LABS: PARTIAL THROMBOPLASTIN TIME 43.7 Sec (25.0-35.0)
[2017-03-20 01:31] LABS: ALBUMIN 2.4 g/dl (3.3-4.9); ALBUMIN/GLOBULIN RATIO 0.64; BILIRUBIN,INDIRECT 0.2 mg/dl (0-1.1); BILIRUBIN,TOTAL 0.2 mg/dl (0.2-1.3); CALCIUM 6.5 mg/dl (8.4-10.2); CREATININE 1.6 mg/dl (0.61-1.24); PHOSPHORUS 4.4 mg/dl (2.5-4.9); POTASSIUM 3.6 mmol/L (3.5-5.1); TOTAL PROTEIN 6.1 g/dl (6.1-8.1)
[2017-03-20] MEDS: ACETAMINOPHEN 650 MG SUPP PR SCH (02:30)
[2017-03-20] MEDS: DEXTROSE 5%-0.225% NACL 1,000 ML IV SCH (02:38)
[2017-03-20] MEDS: ACETAMINOPHEN 650MG/20.3ML CUP PO SCH (02:41)
[2017-03-20 03:27] LABS: Allen Test ACCEPTAB; Arterial Base Excess -4.5 mmol/L (-3.0-3); Arterial COHb 0.3 % (0.0-3.0); Arterial Fraction of Oxyhgb 98.4 % (93.0-99.0); Arterial HCO3 18.6 mmol/L (22.0-26.0); Arterial MetHb 0.4 % (0.0-1.5); Arterial Total Hemglobin 11.2 g/dl (12.0-18.0); Blood Gas Mean Airway Pressure 11; MODE 550
[2017-03-20 03:57] LABS: AADO2 Arterial 79.5 mmHg (7.0-24.0); Allen Test ACCEPTAB; Arterial Base Excess -3.3 mmol/L (-3.0-3); Arterial COHb 0.3 % (0.0-3.0); Arterial Fraction of Oxyhgb 97.1 % (93.0-99.0); Arterial HCO3 19.4 mmol/L (22.0-26.0); Arterial MetHb 0.3 % (0.0-1.5); Arterial Total Hemglobin 10.1 g/dl (12.0-18.0); Blood Gas Mean Airway Pressure 11; MODE VENT - AC
[2017-03-20] MEDS: VECURONIUM 100 MG in DEXTROSE 5% 100 ML IV SCH (05:11)
[2017-03-20 05:18] LABS: ABNORMAL IP MESSAGE 1; BASOPHIL # 0.1 10^3/ul (0.0-0.1); BASOPHILS % 0.5 % (0.0-2.0); HEMATOCRIT 29.8 % (42.0-52.0); HEMOGLOBIN 9.1 g/dl (14.0-18.0); LYMPHOCYTES # 0.9 10^3/ul (0.8-2.9); LYMPHOCYTES % 6.8 % (15.0-51.0); MEAN CORPUSCULAR HEMOGLOBIN 28.3 pg (29.0-33.0); MEAN CORPUSCULAR HGB CONC 30.5 g/dl (32.0-37.0); MEAN CORPUSCULAR VOLUME 92.5 fl (82.0-101.0); MEAN PLATELET VOLUME 14.1 fl (7.4-10.4); MONOCYTE # 0.2 10^3/ul (0.3-0.9); MONOCYTES % 1.2 % (0.0-11.0); NEUTROPHIL # 11.9 10^3/ul (1.6-7.5); NEUTROPHILS % 89.9 % (39.0-77.0); PLATELET COUNT 124 10^3/UL (140-415); POSITIVE DIFF @See below; RED BLOOD COUNT 3.22 10^6/ul (4.70-6.10); RED CELL DISTRIBUTION WIDTH 15.7 % (11.5-14.5); WHITE BLOOD COUNT 13.2 10^3/ul (4.8-10.8)
[2017-03-20 05:35] LABS: INR 1.52; PROTIME 18.4 Sec (12.2-14.2); PT RATIO 1.4
[2017-03-20 05:36] LABS: PARTIAL THROMBOPLASTIN TIME 48.9 Sec (25.0-35.0)
[2017-03-20 05:41] LABS: ALBUMIN 2.6 g/dl (3.3-4.9); ALBUMIN/GLOBULIN RATIO 0.72; BILIRUBIN,INDIRECT 0.2 mg/dl (0-1.1); BILIRUBIN,TOTAL 0.2 mg/dl (0.2-1.3); CALCIUM 6.6 mg/dl (8.4-10.2); CREATININE 1.81 mg/dl (0.61-1.24); MAGNESIUM 2.1 mg/dl (1.7-2.5); PHOSPHORUS 4.5 mg/dl (2.5-4.9); POTASSIUM 3.8 mmol/L (3.5-5.1); TOTAL PROTEIN 6.2 g/dl (6.1-8.1)
[2017-03-20 05:42] LABS: AMYLASE 47 U/L (11-123)
[2017-03-20] MEDS: ARTIFICIAL TEARS 15 ML OPH BOTH EYES SCH (05:47)
[2017-03-20] MEDS: OCULAR LUBRICANT 3.5 GM OPH OINT BOTH EYES SCH (05:47)
[2017-03-20] MEDS ORDERED: DEXTROSE 5%-0.225% NACL 1,000 ML IV SCH (07:30)
--- NOTE | 2017-03-20 07:34 | CONS ---
Date/Time of Note Date/Time of Note DATE: 03/20/17 TIME: 07:27 Assessment/Plan Assessment/Plan Additional Assessment/Plan Dictating a family conference with patient's nephew. He states that his uncle had very poor quality of life could barely speak could not do any activities of daily living from a cognitive standpoint has been deteriorating over the last year prior to this hospitalization. Nephew said his uncle was suffering. He also made it clear that the family members do not want him to live in a condition he is currently, nor would he want him to continue to live the life he was living prior to this hospitalization. We explored patient's background , family members understanding hopes desires quality of life he would like to see for patient their understanding hopes communication cultural differences and goals of care .Patient nephew who is a decision maker for patient's ongoing level of care wants to stop everything legally he is the decision-maker patient has no children his left 40 years ago. He has a sister who lives in [place] once again he speaks in behalf of family. At this time we will respect family's wishes and discontinue all aggressive interventions and swishes comfort measures Consultation Date/Type/Reason Admit Date/Time Mar 18, 2017 at 09:15 Initial Consult Date 03/19/17 Type of Consultation: renal Exam/Review of Systems Vital Signs Vitals Vital Signs Date Time Temp Pulse Resp B/P Pulse Ox O2 Delivery O2 Flow Rate FiO2 03/20/17 06:15 104 18 102/75 100 03/20/17 06:00 97.5 Mechanical Ventilator 03/20/17 04:28 30 03/18/17 07:27 15 Intake and Output 03/19/17 03/19/17 03/20/17 15:00 23:00 07:00 Intake Total 996.87 ml 1172.32 ml 1487.53 ml Output Total 50 ml 736 ml 43 ml Balance 946.87 ml 436.32 ml 1444.53 ml Results Result Diagram: 03/20/17 0500 03/20/17 0500 Results 24 hrs Laboratory Tests Test 03/19/17 07:59 03/19/17 08:07 03/19/17 08:27 03/19/17 10:15 Troponin I 0.292 *H Bedside Glucose 121 82 Blood Gas Specimen Source Blood arterial Arterial Blood Date Drawn 03/19/2017 8:50:26 AM Arterial Blood pH (Temp corrected) 7.415 Arterial Blood pCO2 (Temp correct) 32.2 L Arterial Blood pO2 (Temp corrected) 76.3 L Arterial Blood HCO3 21.0 L Arterial Blood Base Excess -4.1 L Arterial Blood Oxygen Saturation 96.8 Stanford Test N/A Arterial Blood Gas Puncture Site Right Brachial Arterial Blood Carboxyhemoglobin 0.3 Arterial Blood Methemoglobin 0.2 Blood Gas A-a O2 Differential 102.6 H Oxyhemoglobin Percent 96.3 Total Hemoglobin 11.5 L Blood Gas Temperature 33.0 Blood Gas Respiration Rate 18.0 Blood Gas Actual Respiration Rate 18 Blood Gas Modality VENT - AC FiO2 30.0 Blood Gas Tidal Volume 550.0 Blood Gas Low PEEP Setting 5.0 Blood Gas Notified Whom TM Blood Gas Notified Time 03/19/2017 9:01:06 AM Test 03/19/17 11:24 03/19/17 11:32 03/19/17 12:49 03/19/17 14:27 Bedside Glucose 77 96 White Blood Count 7.8 Red Blood Count 3.49 L Hemoglobin 10.0 L Hematocrit 33.4 L Mean Corpuscular Volume 95.7 Mean Corpuscular Hemoglobin 28.7 L Mean Corpuscular Hemoglobin Concent 29.9 L Red Cell Distribution Width 15.6 H Platelet Count 149 Mean Platelet Volume Neutrophils % 80.8 H Lymphocytes % 13.6 L Monocytes % 3.8 Eosinophils % 0.1 Basophils % 0.9 Nucleated Red Blood Cells % 0.0 Neutrophils # 6.3 Lymphocytes # 1.1 Monocytes # 0.3 Eosinophils # 0.0 Basophils # 0.1 Nucleated Red Blood Cells # 0.0 Prothrombin Time 17.9 H Prothrombin Time Ratio 1.4 INR International Normalized Ratio 1.47 Activated Partial Thromboplast Time 38.0 H Sodium Level 163 *H Potassium Level 3.7 Chloride Level 124 H Carbon Dioxide Level 24 Anion Gap 19 H Blood Urea Nitrogen 66 H Creatinine 1.58 H Glucose Level 77 # Lactic Acid Level 2.0 Calcium Level 6.9 L Phosphorus Level 4.1 Magnesium Level 2.2 Total Bilirubin 0.1 L Direct Bilirubin 0.00 Indirect Bilirubin 0.1 Aspartate Amino Transf (AST/SGOT) 116 H Alanine Aminotransferase (ALT/SGPT) 74 H Alkaline Phosphatase 83 Total Protein 6.0 L Albumin 2.4 L Globulin 3.60 H Albumin/Globulin Ratio 0.66 Blood Gas Specimen Source Blood arterial Arterial Blood Date Drawn 03/19/2017 2:15:25 PM Arterial Blood pH (Temp corrected) 7.429 Arterial Blood pCO2 (Temp correct) 30.3 L Arterial Blood pO2 (Temp corrected) 72.5 L Arterial Blood HCO3 20.5 L Arterial Blood Base Excess -4.2 L Arterial Blood Oxygen Saturation 96.6 Stanford Test N/A Arterial Blood Gas Puncture Site Right Brachial Arterial Blood Carboxyhemoglobin 0.3 Arterial Blood Methemoglobin 0.3 Blood Gas A-a O2 Differential 108.7 H Oxyhemoglobin Percent 96.0 Total Hemoglobin 11.6 L Blood Gas Temperature 32.9 Blood Gas Respiration Rate 18.0 Blood Gas Actual Respiration Rate 18 Blood Gas Modality VENT - AC FiO2 30.0 Blood Gas Tidal Volume 550.0 Blood Gas Low PEEP Setting 5.0 Blood Gas Notified Whom TM Blood Gas Notified Time 03/19/2017 2:23:01 PM Test 03/19/17 14:36 03/19/17 16:51 03/19/17 17:34 03/19/17 17:58 Bedside Glucose 97 115 116 White Blood Count 8.3 Red Blood Count 3.27 L Hemoglobin 9.4 L Hematocrit 30.7 L Mean Corpuscular Volume 93.9 Mean Corpuscular Hemoglobin 28.7 L Mean Corpuscular Hemoglobin Concent 30.6 L Red Cell Distribution Width 15.6 H Platelet Count 118 #L Mean Platelet Volume 14.1 H Neutrophils % 15.0 L Segmented Neutrophils % (Manual) 15 L Band Neutrophils % (Manual) 66 H Lymphocytes % 11.0 L Lymphocytes % (Manual) 11 L Monocytes % 3.0 Monocytes % (Manual) 3 Eosinophils % Basophils % Metamyelocytes % (manual) 5 H Nucleated Red Blood Cells % 2 H Neutrophils # 1.2 L Neutrophils # (Manual) 1.7 Band Neutrophils # 5.4 H Absolute Lymphocytes (Manual) 0.9 Lymphocytes # 0.9 Monocytes # 0.2 L Absolute Monocytes (Manual) 0.2 L Eosinophils # Basophils # Metamyelocytes # 0.4 H Nucleated Red Blood Cells # Prothrombin Time 20.7 H Prothrombin Time Ratio 1.6 INR International Normalized Ratio 1.76 Activated Partial Thromboplast Time 44.2 H Sodium Level 159 H Potassium Level 3.5 Chloride Level 121 H Carbon Dioxide Level 24 Anion Gap 18 H Blood Urea Nitrogen 68 H Creatinine 1.66 H Glucose Level 112 Lactic Acid Level 2.6 *H Calcium Level 6.5 L Phosphorus Level 4.1 Magnesium Level 2.1 Total Bilirubin 0.2 Direct Bilirubin 0.00 Indirect Bilirubin 0.2 Aspartate Amino Transf (AST/SGOT) 113 H Alanine Aminotransferase (ALT/SGPT) 67 Alkaline Phosphatase 76 Total Protein 6.1 Albumin 2.5 L Globulin 3.60 H Albumin/Globulin Ratio 0.69 Test 03/19/17 18:26 03/19/17 20:08 03/19/17 20:43 03/19/17 22:06 Bedside Glucose 107 89 108 Blood Gas Specimen Source Blood arterial Arterial Blood Date Drawn 03/19/2017 9:19:37 PM Arterial Blood pH (Temp corrected) 7.499 H Arterial Blood pCO2 (Temp correct) 24.5 L Arterial Blood pO2 (Temp corrected) 81.9 Arterial Blood HCO3 19.1 L Arterial Blood Base Excess -3.7 L Arterial Blood Oxygen Saturation 97.2 Stanford Test ACCEPTAB Arterial Blood Gas Puncture Site Right Radial Arterial Blood Carboxyhemoglobin 0.3 Arterial Blood Methemoglobin 0.3 Blood Gas A-a O2 Differential 105.4 H Oxyhemoglobin Percent 96.6 Total Hemoglobin 11.2 L Blood Gas Temperature 34.1 Blood Gas Respiration Rate 18.0 Blood Gas Actual Respiration Rate 18 Blood Gas Modality VENT - AC FiO2 30.0 Blood Gas Tidal Volume 550.0 Blood Gas Mean Airway Pressure 11 Blood Gas Low PEEP Setting 5.0 Blood Gas Inspiratory Pressure 23.0 Blood Gas Notified Whom [facility] Blood Gas Notified Time 03/19/2017 9:31:21 PM Test 03/19/17 23:55 03/20/17 00:43 03/20/17 02:00 03/20/17 02:35 Bedside Glucose 140 153 White Blood Count 9.7 Red Blood Count 3.19 L Hemoglobin 9.3 L Hematocrit 29.8 L Mean Corpuscular Volume 93.4 Mean Corpuscular Hemoglobin 29.2 Mean Corpuscular Hemoglobin Concent 31.2 L Red Cell Distribution Width 15.4 H Platelet Count 115 L Mean Platelet Volume Neutrophils % 87.1 H Lymphocytes % 8.3 L Monocytes % 1.4 Eosinophils % 0.0 Basophils % 0.9 Nucleated Red Blood Cells % 0.0 Neutrophils # 8.4 H Lymphocytes # 0.8 Monocytes # 0.1 L Eosinophils # 0.0 Basophils # 0.1 Nucleated Red Blood Cells # 0.0 Prothrombin Time 18.4 H Prothrombin Time Ratio 1.4 INR International Normalized Ratio 1.52 Activated Partial Thromboplast Time 43.7 H Fibrinogen 594.0 #H Sodium Level 157 H Potassium Level 3.6 Chloride Level 117 H Carbon Dioxide Level 23 Anion Gap 21 H Blood Urea Nitrogen 72 H Creatinine 1.60 H Glucose Level 152 Calcium Level 6.5 L Phosphorus Level 4.4 Magnesium Level 2.0 Total Bilirubin 0.2 Direct Bilirubin 0.00 Indirect Bilirubin 0.2 Aspartate Amino Transf (AST/SGOT) 97 H Alanine Aminotransferase (ALT/SGPT) 66 Alkaline Phosphatase 75 Troponin I 0.205 *H Total Protein 6.1 Albumin 2.4 L Globulin 3.70 H Albumin/Globulin Ratio 0.64 Amylase Level 83 Lipase < 10 L Blood Gas Specimen Source Blood arterial Arterial Blood Date Drawn 03/20/2017 3:09:33 AM Arterial Blood pH (Temp corrected) 7.455 H Arterial Blood pCO2 (Temp correct) 26.7 L Arterial Blood pO2 (Temp corrected) 227.6 H Arterial Blood HCO3 18.6 L Arterial Blood Base Excess -4.5 L Arterial Blood Oxygen Saturation 99.1 [facility] Test ACCEPTAB Arterial Blood Gas Puncture Site Right Radial Arterial Blood Carboxyhemoglobin 0.3 Arterial Blood Methemoglobin 0.4 Oxyhemoglobin Percent 98.4 Total Hemoglobin 11.2 L Blood Gas Temperature 35.6 Blood Gas Respiration Rate 18.0 Blood Gas Actual Respiration Rate 18 Blood Gas Modality 550 FiO2 30.0 Blood Gas Tidal Volume 550.0 Blood Gas Mean Airway Pressure 11 Blood Gas Low PEEP Setting 5.0 Blood Gas Inspiratory Pressure 33.0 Blood Gas Critical Value Read Back Radha RAMIREZ R.N. Blood Gas Notified Whom [facility] Blood Gas Notified Time 03/20/2017 3:21:42 AM Test 03/20/17 03:41 03/20/17 04:01 03/20/17 05:00 03/20/17 05:40 Blood Gas Specimen Source Blood arterial Arterial Blood Date Drawn 03/20/2017 3:45:59 AM Arterial Blood pH (Temp corrected) 7.485 H Arterial Blood pCO2 (Temp correct) 26.1 L Arterial Blood pO2 (Temp corrected) 104.6 H Arterial Blood HCO3 19.4 L Arterial Blood Base Excess -3.3 L Arterial Blood Oxygen Saturation 97.7 [facility] Test ACCEPTAB Arterial Blood Gas Puncture Site Right Radial Arterial Blood Carboxyhemoglobin 0.3 Arterial Blood Methemoglobin 0.3 Blood Gas A-a O2 Differential 79.5 H Oxyhemoglobin Percent 97.1 Total Hemoglobin 10.1 L Blood Gas Temperature 35.8 Blood Gas Respiration Rate 18.0 Blood Gas Actual Respiration Rate 18 Blood Gas Modality VENT - AC FiO2 30.0 Blood Gas Tidal Volume 550.0 Blood Gas Mean Airway Pressure 11 Blood Gas Low PEEP Setting 5.0 Blood Gas Inspiratory Pressure 24.0 Blood Gas Notified Whom [facility] Blood Gas Notified Time 03/20/2017 3:57:22 AM Bedside Glucose 146 White Blood Count 13.2 #H Red Blood Count 3.22 L Hemoglobin 9.1 L Hematocrit 29.8 L Mean Corpuscular Volume 92.5 Mean Corpuscular Hemoglobin 28.3 L Mean Corpuscular Hemoglobin Concent 30.5 L Red Cell Distribution Width 15.7 H Platelet Count 124 L Mean Platelet Volume 14.1 H Neutrophils % 89.9 H Lymphocytes % 6.8 L Monocytes % 1.2 Eosinophils % 0.0 Basophils % 0.5 Nucleated Red Blood Cells % 0.0 Neutrophils # 11.9 H Lymphocytes # 0.9 Monocytes # 0.2 L Eosinophils # 0.0 Basophils # 0.1 Nucleated Red Blood Cells # 0.0 Prothrombin Time 18.4 H Prothrombin Time Ratio 1.4 INR International Normalized Ratio 1.52 Activated Partial Thromboplast Time 48.9 H Fibrinogen 581.0 H Sodium Level 158 H Potassium Level 3.8 Chloride Level 119 H Carbon Dioxide Level 22 Anion Gap 21 H Blood Urea Nitrogen 71 H Creatinine 1.81 H Glucose Level 138 Calcium Level 6.6 L Phosphorus Level 4.5 Magnesium Level 2.1 Total Bilirubin 0.2 Direct Bilirubin 0.00 Indirect Bilirubin 0.2 Aspartate Amino Transf (AST/SGOT) 78 H Alanine Aminotransferase (ALT/SGPT) 59 Alkaline Phosphatase 75 Troponin I 0.223 *H Total Protein 6.2 Albumin 2.6 L Globulin 3.60 H Albumin/Globulin Ratio 0.72 Amylase Level 47 Lipase < 10 L Lactic Acid Level 3.6 *H Test 03/20/17 06:23 Bedside Glucose 149 Medications Medications Current Medications Ondansetron HCl (Zofran Inj) 4 mg Q6H PRN IV NAUSEA AND/OR VOMITING; Start 8/2 /17 at 10:30 Acetaminophen (Tylenol Tab) 650 mg Q6H PRN PO PAIN LEVEL 1-3 OR FEVER; Start at 10:30 Acetaminophen/ Hydrocodone Bitart ([place] (5/325)) 1 tab Q6H PRN PO MODERATE PAIN LEVEL 4-6; Start 03/18/17 at 10:30 Morphine Sulfate (morphine) 2 mg Q4H PRN IV SEVERE PAIN LEVEL 7-10; Start at 10:30 Docusate Sodium (Colace) 100 mg Q12H PRN PO CONSTIPATION; Start 03/18/17 at 10: 30 Magnesium Hydroxide (Milk Of Mag) 30 ml DAILY PRN PO CONSTIPATION; Start at 10:30 Sodium Biphosphate/ Sodium Phosphate (Fleet Enema) 133 ml DAILY PRN IN CONSTIPATION; Start 03/18/17 at 10:30 Famotidine (Pepcid Iv) 20 mg HS IV Last administered on 03/19/17 21:05; Admin Dose 20 MG; Start 03/18/17 at 21:00 Lorazepam (Ativan) 0.5 mg Q6H PRN IV ANXIETY; Start 03/18/17 at 10:30 Vancomycin HCl (Vanco Iv Per Pharmacy) VANCOMYCIN PER PHARMACY NOTE XX ; Start 03/18/17 at 10:30 Hydralazine HCl (Apresoline) 10 mg Q6H PRN IV ELEVATED BLOOD PRESSURE; Start at 10:30 Nitroglycerin (Nitroglycerin (Sl Tab) 0.4 Mg) 1 tab Q5M PRN SL ANGINA; Start at 10:30 Dextrose (D50w Syringe) 25 ml Q15M PRN IV Till BS 80 mg/dL or above x2; Start 03/18/17 at 10:30 Dextrose 50 ml 50 ml Q15M PRN IV Till BS 80 mg/dL or above x2; Start 03/18/17 at 10:30 Cefepime HCl (Maxipime 2gm/50 ml (Pmx)) 50 ml @ 100 mls/hr Q12 IVPB Last administered on 03/19/17 22:02; Admin Dose 100 MLS/HR; Start 03/18/17 at 12:00 Acetaminophen (Tylenol Supp) 650 mg Q4H PRN IN TEMP > 37C Last administered on 03/18/17 19:08; Admin Dose 650 MG; Start 03/18/17 at 14:30 Acetaminophen (Tylenol Liquid) 650 mg Q4H PRN PO TEMP > 37C; Start 03/18/17 at 14:30 Acetaminophen (Tylenol Supp) 500 mg Q6H IN Last administered on 03/19/17 16:56 ; Admin Dose 500 MG; Start 03/19/17 at 14:30 Acetaminophen (Tylenol Liquid) 500 mg Q6H PO Last administered on 03/20/17 02: 41; Admin Dose 500 MG; Start 03/19/17 at 14:30 Meperidine HCl (Demerol) 12.5 mg Q4H PRN IV POST OPERATIVE SHIVERING; Start 03/18/17 at 14:30 Meperidine HCl (Demerol) 25 mg Q4H PRN IV POST OPERATIVE SHIVERING; Start at 14:30 Eye Lubricant (Akwa Oint) 1 applic Q6 BOTH EYES Last administered on 03/20/17 05:47; Admin Dose 1 APPLIC; Start 03/18/17 at 18:00 Eye Lubricant (Artificial Tears Oph) 2 drop Q6 BOTH EYES Last administered on 05:47; Admin Dose 2 DROP; Start 03/18/17 at 18:00 Diagnostic Test (Pha) (Accu-Chek) 1 ea Q1H XX Last administered on 03/20/17 06: 41; Admin Dose 1 EA; Start 03/18/17 at 14:30 Dextrose (D50w Syringe) 25 ml Q15M PRN IV Till BS 80 mg/dL or above x2; Start 03/18/17 at 14:30 Dextrose 50 ml 50 ml Q15M PRN IV Till BS 80 mg/dL or above x2; Start 03/18/17 at 14:30 Vasopressin 60 unit/Dextrose 60 ml @ 1.2 mls/hr Q12H IV Last administered on 14:32; Admin Dose 1.8 MLS/HR; Start 03/18/17 at 20:00 Vancomycin HCl/ Dextrose (Vancocin/D5W) 250 ml @ 125 mls/hr Q24H IVPB Last administered on 03/19/17 15:45; Admin Dose 125 MLS/HR; Start 03/19/17 at 14:00 Acetaminophen (Tylenol Supp) 650 mg Q4H PRN IN TEMP > 37C; Start 03/19/17 at 10: 00 Acetaminophen (Tylenol Liquid) 650 mg Q4H PRN PO TEMP > 37C; Start 03/19/17 at 10:00 Acetaminophen 500 mg 500 mg Q6H PO ; Start 03/20/17 at 10:00 Norepinephrine 16 mg/Dextrose 500 ml @ 1.875 mls/ hr TITRATE IV Last administered on 03/20/17 05:20; Admin Dose 41.25 MLS/HR; Start 03/19/17 at 10:30 Vecuronium [place]/Dextrose (Norcuron/D5W) 100 ml @ 0 mls/hr TITRATE IV Last administered on 03/20/17 05:11; Admin Dose 5.46 MLS/HR; Start 03/19/17 at 12:00 Miscellaneous Information (Pending Santyl Order For Wound Care) This patient loza... PRN PRN XX WOUND CARE; Start 03/19/17 at 15:30 Collagenase (Santyl) 1 applic DAILY TOP ; Start 03/19/17 at 16:30 Hydrocortisone 100 mg 100 mg BID IV ; Start 03/20/17 at 09:00; Stop 03/22/17 at 09 :00 Albumin Human 50 ml @ 100 mls/hr DAILY IV ; Start 03/20/17 at 09:00; Stop at 09:29 Dextrose/Sodium Chloride (D5-1/4ns) 1,000 ml @ 0 mls/hr Q0M IV ; Start 03/20/17 at 07:30; Status BRI MCKEON Mar 20, 2017 07:34
[2017-03-20] MEDS ORDERED: morphine (DRIP) 100 MG/100 ML 100 ML IV SCH (08:00)
[2017-03-20] MEDS ORDERED: LORAZEPAM 2 MG INJ IV PRN (08:00)
--- NOTE | 2017-03-20 08:27 | RADRPT ---
PROCEDURE: Chest radiograph. CLINICAL INDICATION: Intubated. TECHNIQUE: Single portable frontal view. COMPARISON: Radiograph 03/18/2017. FINDINGS: The endotracheal tube terminates about 3 cm above the soo. A right-sided ventriculoperitoneal shunt catheter courses above and below the field of view. Moderate bilateral pleural effusions. Alveolar opacities within every lobe of both lungs consistent with either pulmonary edema or multifo ramon pneumonia. Posterior instrumented fusion of the mid thoracic spine. IMPRESSION: 1. Bilateral pleural effusions with extensive alveolar opacities which may represent either pulmonar y edema or multifocal pneumonia. 2. Endotracheal tube remains in expected position. RPTAT: PP Physician Krissy Date Time Electronically viewed and signed by Physician Krissy on 03/20/2017 08:27 /
--- NOTE | 2017-03-20 08:37 | CONS ---
DATE OF ADMISSION: 03/18/2017 DATE OF CONSULTATION: 03/19/2017 Nephrology Consultation HISTORY OF PRESENT ILLNESS: Thank you, Dr. Porter, for kindly asking me to see this patient in nephrology consultation. The patient is a 71-year-old male with a history of CAD, history of hypertension, hydrocephalus, history of depression, history of traumatic brain injury, who presented with fever, altered mental status, and cardiac arrest. Patient is currently intubated, on pressors, and is not able to give any detailed history at this point. History was obtained from patient's chart. The patient noted to have electrolyte imbalance with sodium 165, potassium 3.6. BUN 56, creatinine 1.52 and nephrology consultation was lactic acidosis and troponin 0.796. PAST MEDICAL HISTORY: Could not be obtained. ALLERGIES: COULD NOT BE OBTAINED. FAMILY HISTORY: Could not be obtained. SOCIAL HISTORY: Could not be obtained. MEDICATION: The patient at home is on: 1. Amino acid. 2. Ascorbic acid. 3. Digoxin. 4. antidepressent. 5. Keppra. 6. Insulin. 7. Magnesium oxide. 8. zinc oxide. 9. Metoprolol. 10. Mirtazapine. 11. Multiple vitamin. 12. Protonix. 13. MiraLax. 14. Xarelto. 15. Senna. 16. Flomax. 17. Terazosin. . PHYSICAL EXAMINATION: The patient is intubated, unresponsive, on hypernatremia protocol. VITAL SIGNS: Pulse 67, blood pressure 101/60. CHEST: Clear. HEENT: Head is atraumatic, normocephalic. Pupils are nonreactive. NECK: Supple. LUNGS: few + rhonchi. CARDIOVASCULAR: S1, S2 normal. ABDOMEN: Nontender. Bowel sounds are positive. EXTREMITIES: No cyanosis or clubbing. Edema positive. CENTRAL NERVOUS SYSTEM: Patient is intubated and at this time noncommunicative. LABORATORY: ABG 71. The patient has hematocrit 27._, platelet count of 148. Sodium 165, potassium 3.6. BUN _ 249. Sodium 171 earlier. Glucose 405. IMPRESSION: 1. Acute kidney injury. 2. Severe hypernatremia. 3. Free water deficit. 4. Uncontrolled diabetes mellitus. 5. Cardiac arrest. 6. Anemia. 7. Hypokalemic metabolic acidosis. 8. Lactic acidosis. PLAN: The plan is to check a urine sodium, creatinine, as well as serum osmolality. Continue IV fluid with free water. Patient is also on hypothermia protocol, insulin per protocol. The patient's electrolytes will be monitored. Hemodynamically, the patient will be supported with pressors and IV fluid. Thank you, Dr. Porter, for kindly asking me to see this patient in nephrology consultation. Dictated By: Robbie Avalos MD /[email or web address] /Document#: [id number] [facility]
[2017-03-20] MEDS ORDERED: ALBUMIN HUMAN 25% 50 ML IV SCH (09:00)
[2017-03-20] MEDS ORDERED: HYDROCORTISONE 100 MG INJ IV SCH (09:00)
--- NOTE | 2017-03-20 09:13 | PN ---
Date/Time of Note Date/Time of Note DATE: 03/20/17 TIME: 09:09 Assessment/Plan VTE Prophylaxis VTE Prophylaxis Intervention: SCD's Lines/Catheters IV Catheter Type (from Nrs): Central Line Central line still needed: Yes Urinary Cath still in place: Yes Reason Cath still needed: urinary retention Assessment/Plan Chief Complaint/Hosp Course Assessment and plan: 71-year-old male past medical history of traumatic brain injury, Seizure disorder, Coronary artery disease, Atrial ablation, Hypertension , History of hydrocephalus, History of depression, who presented with fever, altered mental status, hypoxia, cardiac arrest, now intubated and on pressors, with severe hypernatremia, signs of non-ST elevation SC type 2 event, and possible aspiration pneumonia. 1. Cardiac arrest/shock/respiratory failure/severe hypernatremia: Again patient is intubated. Again, patient is now comfort measures only, continue morphine and Ativan as ordered by palliative care team. Critical care time spent today on patient care today = 40 minutes Problems: Subjective 24 Hr Interval Summary Free Text/Dictation Family met with palliative care team, comfort measures have been initiated as of this morning. Exam/Review of Systems Vital Signs Vitals Vital Signs Date Time Temp Pulse Resp B/P Pulse Ox O2 Delivery O2 Flow Rate FiO2 03/20/17 08:00 91 18 75/52 100 Mechanical Ventilator 03/20/17 07:55 30 03/20/17 07:30 98.4 03/18/17 07:27 15 Intake and Output 03/19/17 03/19/17 03/20/17 15:00 23:00 07:00 Intake Total 996.87 ml 1172.32 ml 1487.53 ml Output Total 50 ml 736 ml 43 ml Balance 946.87 ml 436.32 ml 1444.53 ml Exam Const: unresponsive, intubated Head: Atraumatic Eyes: Normal Conjunctiva ENT: Mucous membranes dry Neck: JVD Resp: No spontaneous respirations, decreased breath sounds with bag valve mask Cardio: S1, S2 Abd: Soft, non tender, non distended. No masses Skin: Cyanotic noted in the left hand and partially in other extremities Back: No deformity Ext: Cyanotic, no edema Neur: Unresponsive, [place] Coma Scale 3 Results Result Diagram: 03/20/17 0500 03/20/17 0500 Results 24 hrs Laboratory Tests Test 03/19/17 10:15 03/19/17 11:24 03/19/17 11:32 03/19/17 12:49 Bedside Glucose 82 77 96 White Blood Count 7.8 Red Blood Count 3.49 L Hemoglobin 10.0 L Hematocrit 33.4 L Mean Corpuscular Volume 95.7 Mean Corpuscular Hemoglobin 28.7 L Mean Corpuscular Hemoglobin Concent 29.9 L Red Cell Distribution Width 15.6 H Platelet Count 149 Mean Platelet Volume Neutrophils % 80.8 H Lymphocytes % 13.6 L Monocytes % 3.8 Eosinophils % 0.1 Basophils % 0.9 Nucleated Red Blood Cells % 0.0 Neutrophils # 6.3 Lymphocytes # 1.1 Monocytes # 0.3 Eosinophils # 0.0 Basophils # 0.1 Nucleated Red Blood Cells # 0.0 Prothrombin Time 17.9 H Prothrombin Time Ratio 1.4 INR International Normalized Ratio 1.47 Activated Partial Thromboplast Time 38.0 H Sodium Level 163 *H Potassium Level 3.7 Chloride Level 124 H Carbon Dioxide Level 24 Anion Gap 19 H Blood Urea Nitrogen 66 H Creatinine 1.58 H Glucose Level 77 # Lactic Acid Level 2.0 Calcium Level 6.9 L Phosphorus Level 4.1 Magnesium Level 2.2 Total Bilirubin 0.1 L Direct Bilirubin 0.00 Indirect Bilirubin 0.1 Aspartate Amino Transf (AST/SGOT) 116 H Alanine Aminotransferase (ALT/SGPT) 74 H Alkaline Phosphatase 83 Total Protein 6.0 L Albumin 2.4 L Globulin 3.60 H Albumin/Globulin Ratio 0.66 Test 03/19/17 14:27 03/19/17 14:36 03/19/17 16:51 03/19/17 17:34 Blood Gas Specimen Source Blood arterial Arterial Blood Date Drawn 03/19/2017 2:15:25 PM Arterial Blood pH (Temp corrected) 7.429 Arterial Blood pCO2 (Temp correct) 30.3 L Arterial Blood pO2 (Temp corrected) 72.5 L Arterial Blood HCO3 20.5 L Arterial Blood Base Excess -4.2 L Arterial Blood Oxygen Saturation 96.6 [facility] Test N/A Arterial Blood Gas Puncture Site Right Brachial Arterial Blood Carboxyhemoglobin 0.3 Arterial Blood Methemoglobin 0.3 Blood Gas A-a O2 Differential 108.7 H Oxyhemoglobin Percent 96.0 Total Hemoglobin 11.6 L Blood Gas Temperature 32.9 Blood Gas Respiration Rate 18.0 Blood Gas Actual Respiration Rate 18 Blood Gas Modality VENT - AC FiO2 30.0 Blood Gas Tidal Volume 550.0 Blood Gas Low PEEP Setting 5.0 Blood Gas Notified Whom TM Blood Gas Notified Time 03/19/2017 2:23:01 PM Bedside Glucose 97 115 116 Test 03/19/17 17:58 03/19/17 18:26 03/19/17 20:08 03/19/17 20:43 White Blood Count 8.3 Red Blood Count 3.27 L Hemoglobin 9.4 L Hematocrit 30.7 L Mean Corpuscular Volume 93.9 Mean Corpuscular Hemoglobin 28.7 L Mean Corpuscular Hemoglobin Concent 30.6 L Red Cell Distribution Width 15.6 H Platelet Count 118 #L Mean Platelet Volume 14.1 H Neutrophils % 15.0 L Segmented Neutrophils % (Manual) 15 L Band Neutrophils % (Manual) 66 H Lymphocytes % 11.0 L Lymphocytes % (Manual) 11 L Monocytes % 3.0 Monocytes % (Manual) 3 Eosinophils % Basophils % Metamyelocytes % (manual) 5 H Nucleated Red Blood Cells % 2 H Neutrophils # 1.2 L Neutrophils # (Manual) 1.7 Band Neutrophils # 5.4 H Absolute Lymphocytes (Manual) 0.9 Lymphocytes # 0.9 Monocytes # 0.2 L Absolute Monocytes (Manual) 0.2 L Eosinophils # Basophils # Metamyelocytes # 0.4 H Nucleated Red Blood Cells # Prothrombin Time 20.7 H Prothrombin Time Ratio 1.6 INR International Normalized Ratio 1.76 Activated Partial Thromboplast Time 44.2 H Sodium Level 159 H Potassium Level 3.5 Chloride Level 121 H Carbon Dioxide Level 24 Anion Gap 18 H Blood Urea Nitrogen 68 H Creatinine 1.66 H Glucose Level 112 Lactic Acid Level 2.6 *H Calcium Level 6.5 L Phosphorus Level 4.1 Magnesium Level 2.1 Total Bilirubin 0.2 Direct Bilirubin 0.00 Indirect Bilirubin 0.2 Aspartate Amino Transf (AST/SGOT) 113 H Alanine Aminotransferase (ALT/SGPT) 67 Alkaline Phosphatase 76 Total Protein 6.1 Albumin 2.5 L Globulin 3.60 H Albumin/Globulin Ratio 0.69 Bedside Glucose 107 89 Blood Gas Specimen Source Blood arterial Arterial Blood Date Drawn 03/19/2017 9:19:37 PM Arterial Blood pH (Temp corrected) 7.499 H Arterial Blood pCO2 (Temp correct) 24.5 L Arterial Blood pO2 (Temp corrected) 81.9 Arterial Blood HCO3 19.1 L Arterial Blood Base Excess -3.7 L Arterial Blood Oxygen Saturation 97.2 [facility] Test ACCEPTAB Arterial Blood Gas Puncture Site Right Radial Arterial Blood Carboxyhemoglobin 0.3 Arterial Blood Methemoglobin 0.3 Blood Gas A-a O2 Differential 105.4 H Oxyhemoglobin Percent 96.6 Total Hemoglobin 11.2 L Blood Gas Temperature 34.1 Blood Gas Respiration Rate 18.0 Blood Gas Actual Respiration Rate 18 Blood Gas Modality VENT - AC FiO2 30.0 Blood Gas Tidal Volume 550.0 Blood Gas Mean Airway Pressure 11 Blood Gas Low PEEP Setting 5.0 Blood Gas Inspiratory Pressure 23.0 Blood Gas Notified Whom [facility] Blood Gas Notified Time 03/19/2017 9:31:21 PM Test 03/19/17 22:06 03/19/17 23:55 03/20/17 00:43 03/20/17 02:00 Bedside Glucose 108 140 White Blood Count 9.7 Red Blood Count 3.19 L Hemoglobin 9.3 L Hematocrit 29.8 L Mean Corpuscular Volume 93.4 Mean Corpuscular Hemoglobin 29.2 Mean Corpuscular Hemoglobin Concent 31.2 L Red Cell Distribution Width 15.4 H Platelet Count 115 L Mean Platelet Volume Neutrophils % 87.1 H Lymphocytes % 8.3 L Monocytes % 1.4 Eosinophils % 0.0 Basophils % 0.9 Nucleated Red Blood Cells % 0.0 Neutrophils # 8.4 H Lymphocytes # 0.8 Monocytes # 0.1 L Eosinophils # 0.0 Basophils # 0.1 Nucleated Red Blood Cells # 0.0 Prothrombin Time 18.4 H Prothrombin Time Ratio 1.4 INR International Normalized Ratio 1.52 Activated Partial Thromboplast Time 43.7 H Fibrinogen 594.0 #H Sodium Level 157 H Potassium Level 3.6 Chloride Level 117 H Carbon Dioxide Level 23 Anion Gap 21 H Blood Urea Nitrogen 72 H Creatinine 1.60 H Glucose Level 152 Calcium Level 6.5 L Phosphorus Level 4.4 Magnesium Level 2.0 Total Bilirubin 0.2 Direct Bilirubin 0.00 Indirect Bilirubin 0.2 Aspartate Amino Transf (AST/SGOT) 97 H Alanine Aminotransferase (ALT/SGPT) 66 Alkaline Phosphatase 75 Troponin I 0.205 *H Total Protein 6.1 Albumin 2.4 L Globulin 3.70 H Albumin/Globulin Ratio 0.64 Amylase Level 83 Lipase < 10 L Blood Gas Specimen Source Blood arterial Arterial Blood Date Drawn 03/20/2017 3:09:33 AM Arterial Blood pH (Temp corrected) 7.455 H Arterial Blood pCO2 (Temp correct) 26.7 L Arterial Blood pO2 (Temp corrected) 227.6 H Arterial Blood HCO3 18.6 L Arterial Blood Base Excess -4.5 L Arterial Blood Oxygen Saturation 99.1 [facility] Test ACCEPTAB Arterial Blood Gas Puncture Site Right Radial Arterial Blood Carboxyhemoglobin 0.3 Arterial Blood Methemoglobin 0.4 Oxyhemoglobin Percent 98.4 Total Hemoglobin 11.2 L Blood Gas Temperature 35.6 Blood Gas Respiration Rate 18.0 Blood Gas Actual Respiration Rate 18 Blood Gas Modality 550 FiO2 30.0 Blood Gas Tidal Volume 550.0 Blood Gas Mean Airway Pressure 11 Blood Gas Low PEEP Setting 5.0 Blood Gas Inspiratory Pressure 33.0 Blood Gas Critical Value Read Back Radha RAMIREZ R.N. Blood Gas Notified Whom LEAH WAGNER Blood Gas Notified Time 03/20/2017 3:21:42 AM Test 03/20/17 02:35 03/20/17 03:41 03/20/17 04:01 03/20/17 05:00 Bedside Glucose 153 146 Blood Gas Specimen Source Blood arterial Arterial Blood Date Drawn 03/20/2017 3:45:59 AM Arterial Blood pH (Temp corrected) 7.485 H Arterial Blood pCO2 (Temp correct) 26.1 L Arterial Blood pO2 (Temp corrected) 104.6 H Arterial Blood HCO3 19.4 L Arterial Blood Base Excess -3.3 L Arterial Blood Oxygen Saturation 97.7 [facility] Test ACCEPTAB Arterial Blood Gas Puncture Site Right Radial Arterial Blood Carboxyhemoglobin 0.3 Arterial Blood Methemoglobin 0.3 Blood Gas A-a O2 Differential 79.5 H Oxyhemoglobin Percent 97.1 Total Hemoglobin 10.1 L Blood Gas Temperature 35.8 Blood Gas Respiration Rate 18.0 Blood Gas Actual Respiration Rate 18 Blood Gas Modality VENT - AC FiO2 30.0 Blood Gas Tidal Volume 550.0 Blood Gas Mean Airway Pressure 11 Blood Gas Low PEEP Setting 5.0 Blood Gas Inspiratory Pressure 24.0 Blood Gas Notified Whom LEAH WAGNER Blood Gas Notified Time 03/20/2017 3:57:22 AM White Blood Count 13.2 #H Red Blood Count 3.22 L Hemoglobin 9.1 L Hematocrit 29.8 L Mean Corpuscular Volume 92.5 Mean Corpuscular Hemoglobin 28.3 L Mean Corpuscular Hemoglobin Concent 30.5 L Red Cell Distribution Width 15.7 H Platelet Count 124 L Mean Platelet Volume 14.1 H Neutrophils % 89.9 H Lymphocytes % 6.8 L Monocytes % 1.2 Eosinophils % 0.0 Basophils % 0.5 Nucleated Red Blood Cells % 0.0 Neutrophils # 11.9 H Lymphocytes # 0.9 Monocytes # 0.2 L Eosinophils # 0.0 Basophils # 0.1 Nucleated Red Blood Cells # 0.0 Prothrombin Time 18.4 H Prothrombin Time Ratio 1.4 INR International Normalized Ratio 1.52 Activated Partial Thromboplast Time 48.9 H Fibrinogen 581.0 H Sodium Level 158 H Potassium Level 3.8 Chloride Level 119 H Carbon Dioxide Level 22 Anion Gap 21 H Blood Urea Nitrogen 71 H Creatinine 1.81 H Glucose Level 138 Calcium Level 6.6 L Phosphorus Level 4.5 Magnesium Level 2.1 Total Bilirubin 0.2 Direct Bilirubin 0.00 Indirect Bilirubin 0.2 Aspartate Amino Transf (AST/SGOT) 78 H Alanine Aminotransferase (ALT/SGPT) 59 Alkaline Phosphatase 75 Troponin I 0.223 *H Total Protein 6.2 Albumin 2.6 L Globulin 3.60 H Albumin/Globulin Ratio 0.72 Amylase Level 47 Lipase < 10 L Test 03/20/17 05:40 03/20/17 06:23 Lactic Acid Level 3.6 *H Bedside Glucose 149 Medications Medications Current Medications Morphine Sulfate/ Sodium Chloride (morphine) 100 ml @ 1 mls/hr TITRATE IV Last administered on 03/20/17 08:25; Admin Dose 1 MLS/HR; Start 03/20/17 at 08:00 Lorazepam (Ativan) 2 mg Q2 PRN IV comfort measures Last administered on 08:24; Admin Dose 2 MG; Start 03/20/17 at 08:00 WENDY SHI Mar 20, 2017 09:13
[2017-03-20] MEDS ORDERED: ACETAMINOPHEN 650MG/20.3ML CUP PO SCH (10:00)
--- NOTE | 2017-03-20 10:01 | DES ---
Date/Time of Note Date/Time of Note DATE: 03/20/17 TIME: 09:52 Discharge/ Summary Admission/Discharge Info Admit Date/Time Mar 18, 2017 at 09:15 Discharge Date/Time Final Diagnosis 1. Cardiac arrest 2. Respiratory failure: Again likely secondary to #1. Also with signs of aspiration pneumonia 3. Non-ST elevation LA -troponins still elevated. Per cardiology team, likely type 2 event 4. Severe hypernatremia - sec to severe intravascular volume depletion 5. Shock: Likely septic given his fevers during hospital stay 6. Hx of TB 7. A. fib 8. PVD 9. Rheumatoid arthritis 10. Coronary artery disease 11. Seizure disorder Preliminary Cause of 1. Respiratory distress: Minutes 2. Cardiac arrest: Days 3. Septic shock likely secondary to aspiration pneumonia: Days Hospital Course 71-year-old male past medical history of traumatic brain injury, Seizure disorder, Coronary artery disease, Atrial ablation, Hypertension, History of hydrocephalus, History of depression, who presented with fever, altered mental status, hypoxia, cardiac arrest, now intubated and on pressors, with severe hypernatremia, signs of non-ST elevation LA type 2 event, and possible aspiration pneumonia. Patient was admitted to intensive care unit, seen by palliative care team, renal, pulmonary, cardiology teams. He was started on D5W IV fluids to treat his hypernatremia. He was also started on antibiotics. Vent management was performed by pulmonary team. Apparently, per palliative care team after meeting with family, patient before admission had very poor quality of life and had limited activity function as outpatient. While here in the hospital he required pressor support, and was initially placed on hypothermia protocol. Patient's overall medical status did not improve. After meeting with family, it was decided that comfort measures would be initiated, and patient was started on Ativan and morphine early on March 20, 2017. Patient was terminally extubated that morning, and at 9:44 AM same day. Physical exam: Gen: Non-responsive HEENT: Pupils nonresponse, no extraocular movements bilaterally Res: No breath sounds able to be auscultate CV: No heart sounds able to be auscultate pulses: Nonpalpable GI: No bowel sounds auscultated Pending Labs/Cultures Laboratory Tests Test 03/19/17 10:15 03/19/17 11:24 03/19/17 11:32 03/19/17 12:49 Bedside Glucose 82mg/dL (70-220) 77mg/dL (70-220) 96mg/dL (70-220) White Blood Count 7.810^3/ul (4.8-10.8) Red Blood Count 3.4910^6/ul (4.70-6.10) Hemoglobin 10.0g/dl (14.0-18.0) Hematocrit 33.4% (42.0-52.0) Mean Corpuscular Volume 95.7fl (82.0-101.0) Mean Corpuscular Hemoglobin 28.7pg (29.0-33.0) Mean Corpuscular Hemoglobin Concent 29.9g/dl (32.0-37.0) Red Cell Distribution Width 15.6% (11.5-14.5) Platelet Count 48395^3/UL (140-415) Mean Platelet Volume fl (7.4-10.4) Neutrophils % 80.8% (39.0-77.0) Lymphocytes % 13.6% (15.0-51.0) Monocytes % 3.8% (0.0-11.0) Eosinophils % 0.1% (0.0-7.0) Basophils % 0.9% (0.0-2.0) Nucleated Red Blood Cells % 0.0/100WBC (0.0-0.0) Neutrophils # 6.310^3/ul (1.6-7.5) Lymphocytes # 1.110^3/ul (0.8-2.9) Monocytes # 0.310^3/ul (0.3-0.9) Eosinophils # 0.010^3/ul (0.0-0.5) Basophils # 0.110^3/ul (0.0-0.1) Nucleated Red Blood Cells # 0.010^3/ul (0.0-0.0) Prothrombin Time 17.9Sec (12.2-14.2) Prothrombin Time Ratio 1.4 INR International Normalized Ratio 1.47 Activated Partial Thromboplast Time 38.0Sec (25.0-35.0) Sodium Level 163mmol/L (135-144) Potassium Level 3.7mmol/L (3.5-5.1) Chloride Level 124mmol/L (97-110) Carbon Dioxide Level 24mmol/L (21-31) Anion Gap 19 (8-16) Blood Urea Nitrogen 66mg/dl (7-20) Creatinine 1.58mg/dl (0.61-1.24) Glucose Level 77mg/dl (70-220) Lactic Acid Level 2.0mmol/L (0.5-2.0) Calcium Level 6.9mg/dl (8.4-10.2) Phosphorus Level 4.1mg/dl (2.5-4.9) Magnesium Level 2.2mg/dl (1.7-2.5) Total Bilirubin 0.1mg/dl (0.2-1.3) Direct Bilirubin 0.00mg/dl (0.00-0.20) Indirect Bilirubin 0.1mg/dl (0-1.1) Aspartate Amino Transf (AST/SGOT) 116IU/L (15-46) Alanine Aminotransferase (ALT/SGPT) 74IU/L (13-69) Alkaline Phosphatase 83IU/L (42-121) Total Protein 6.0g/dl (6.1-8.1) Albumin 2.4g/dl (3.3-4.9) Globulin 3.60g/dl (1.3-3.2) Albumin/Globulin Ratio 0.66 Test 03/19/17 14:27 03/19/17 14:36 03/19/17 16:51 03/19/17 17:34 Blood Gas Specimen Source Blood arterial Arterial Blood Date Drawn 03/19/2017 2:15:25 PM Arterial Blood pH (Temp corrected) 7.429 (7.350-7.450) Arterial Blood pCO2 (Temp correct) 30.3mmhg (35-45) Arterial Blood pO2 (Temp corrected) 72.5mmHG (80-90.0) Arterial Blood HCO3 20.5mmol/L (22.0-26.0) Arterial Blood Base Excess -4.2mmol/L (-3.0-3) Arterial Blood Oxygen Saturation 96.6mmHG (95.0-100.0) [facility] Test N/A Arterial Blood Gas Puncture Site Right Brachial Arterial Blood Carboxyhemoglobin 0.3% (0.0-3.0) Arterial Blood Methemoglobin 0.3% (0.0-1.5) Blood Gas A-a O2 Differential 108.7mmHg (7.0-24.0) Oxyhemoglobin Percent 96.0% (93.0-99.0) Total Hemoglobin 11.6g/dl (12.0-18.0) Blood Gas Temperature 32.9C Blood Gas Respiration Rate 18.0 Blood Gas Actual Respiration Rate 18 Blood Gas Modality VENT - AC FiO2 30.0% Blood Gas Tidal Volume 550.0mL Blood Gas Low PEEP Setting 5.0cmH2O Blood Gas Notified Whom TM Blood Gas Notified Time 03/19/2017 2:23:01 PM Bedside Glucose 97mg/dL (70-220) 115mg/dL (70-220) 116mg/dL (70-220) Test 03/19/17 17:58 03/19/17 18:26 03/19/17 20:08 03/19/17 20:43 White Blood Count 8.310^3/ul (4.8-10.8) Red Blood Count 3.2710^6/ul (4.70-6.10) Hemoglobin 9.4g/dl (14.0-18.0) Hematocrit 30.7% (42.0-52.0) Mean Corpuscular Volume 93.9fl (82.0-101.0) Mean Corpuscular Hemoglobin 28.7pg (29.0-33.0) Mean Corpuscular Hemoglobin Concent 30.6g/dl (32.0-37.0) Red Cell Distribution Width 15.6% (11.5-14.5) Platelet Count 54125^3/UL (140-415) Mean Platelet Volume 14.1fl (7.4-10.4) Neutrophils % 15.0% (39.0-77.0) Segmented Neutrophils % (Manual) 15% (39-77) Band Neutrophils % (Manual) 66% (0-4) Lymphocytes % 11.0% (15.0-51.0) Lymphocytes % (Manual) 11% (15-51) Monocytes % 3.0% (0.0-11.0) Monocytes % (Manual) 3% (0-11) Eosinophils % % (0.0-7.0) Basophils % % (0.0-2.0) Metamyelocytes % (manual) 5% (0-0) Nucleated Red Blood Cells % 2% (0-0) Neutrophils # 1.210^3/ul (1.6-7.5) Neutrophils # (Manual) 1.710^3/ul (1.6-7.5) Band Neutrophils # 5.410^3/ul (0.0-0.6) Absolute Lymphocytes (Manual) 0.910^3/ul (0.8-2.9) Lymphocytes # 0.910^3/ul (0.8-2.9) Monocytes # 0.210^3/ul (0.3-0.9) Absolute Monocytes (Manual) 0.210^3/ul (0.3-0.9) Eosinophils # 10^3/ul (0.0-0.5) Basophils # 10^3/ul (0.0-0.1) Metamyelocytes # 0.410^3/ul (0.0-0.0) Nucleated Red Blood Cells # 10^3/ul (0.0-0.0) Prothrombin Time 20.7Sec (12.2-14.2) Prothrombin Time Ratio 1.6 INR International Normalized Ratio 1.76 Activated Partial Thromboplast Time 44.2Sec (25.0-35.0) Sodium Level 159mmol/L (135-144) Potassium Level 3.5mmol/L (3.5-5.1) Chloride Level 121mmol/L (97-110) Carbon Dioxide Level 24mmol/L (21-31) Anion Gap 18 (8-16) Blood Urea Nitrogen 68mg/dl (7-20) Creatinine 1.66mg/dl (0.61-1.24) Glucose Level 112mg/dl (70-220) Lactic Acid Level 2.6mmol/L (0.5-2.0) Calcium Level 6.5mg/dl (8.4-10.2) Phosphorus Level 4.1mg/dl (2.5-4.9) Magnesium Level 2.1mg/dl (1.7-2.5) Total Bilirubin 0.2mg/dl (0.2-1.3) Direct Bilirubin 0.00mg/dl (0.00-0.20) Indirect Bilirubin 0.2mg/dl (0-1.1) Aspartate Amino Transf (AST/SGOT) 113IU/L (15-46) Alanine Aminotransferase (ALT/SGPT) 67IU/L (13-69) Alkaline Phosphatase 76IU/L (42-121) Total Protein 6.1g/dl (6.1-8.1) Albumin 2.5g/dl (3.3-4.9) Globulin 3.60g/dl (1.3-3.2) Albumin/Globulin Ratio 0.69 Bedside Glucose 107mg/dL (70-220) 89mg/dL (70-220) Blood Gas Specimen Source Blood arterial Arterial Blood Date Drawn 03/19/2017 9:19:37 PM Arterial Blood pH (Temp corrected) 7.499 (7.350-7.450) Arterial Blood pCO2 (Temp correct) 24.5mmhg (35-45) Arterial Blood pO2 (Temp corrected) 81.9mmHG (80-90.0) Arterial Blood HCO3 19.1mmol/L (22.0-26.0) Arterial Blood Base Excess -3.7mmol/L (-3.0-3) Arterial Blood Oxygen Saturation 97.2mmHG (95.0-100.0) [facility] Test ACCEPTAB Arterial Blood Gas Puncture Site Right Radial Arterial Blood Carboxyhemoglobin 0.3% (0.0-3.0) Arterial Blood Methemoglobin 0.3% (0.0-1.5) Blood Gas A-a O2 Differential 105.4mmHg (7.0-24.0) Oxyhemoglobin Percent 96.6% (93.0-99.0) Total Hemoglobin 11.2g/dl (12.0-18.0) Blood Gas Temperature 34.1C Blood Gas Respiration Rate 18.0 Blood Gas Actual Respiration Rate 18 Blood Gas Modality VENT - AC FiO2 30.0% Blood Gas Tidal Volume 550.0mL Blood Gas Mean Airway Pressure 11 Blood Gas Low PEEP Setting 5.0cmH2O Blood Gas Inspiratory Pressure 23.0 Blood Gas Notified Gonzalo [facility] Blood Gas Notified Time 03/19/2017 9:31:21 PM Test 03/19/17 22:06 03/19/17 23:55 03/20/17 00:43 03/20/17 02:00 Bedside Glucose 108mg/dL (70-220) 140mg/dL (70-220) White Blood Count 9.710^3/ul (4.8-10.8) Red Blood Count 3.1910^6/ul (4.70-6.10) Hemoglobin 9.3g/dl (14.0-18.0) Hematocrit 29.8% (42.0-52.0) Mean Corpuscular Volume 93.4fl (82.0-101.0) Mean Corpuscular Hemoglobin 29.2pg (29.0-33.0) Mean Corpuscular Hemoglobin Concent 31.2g/dl (32.0-37.0) Red Cell Distribution Width 15.4% (11.5-14.5) Platelet Count 56453^3/UL (140-415) Mean Platelet Volume fl (7.4-10.4) Neutrophils % 87.1% (39.0-77.0) Lymphocytes % 8.3% (15.0-51.0) Monocytes % 1.4% (0.0-11.0) Eosinophils % 0.0% (0.0-7.0) Basophils % 0.9% (0.0-2.0) Nucleated Red Blood Cells % 0.0/100WBC (0.0-0.0) Neutrophils # 8.410^3/ul (1.6-7.5) Lymphocytes # 0.810^3/ul (0.8-2.9) Monocytes # 0.110^3/ul (0.3-0.9) Eosinophils # 0.010^3/ul (0.0-0.5) Basophils # 0.110^3/ul (0.0-0.1) Nucleated Red Blood Cells # 0.010^3/ul (0.0-0.0) Prothrombin Time 18.4Sec (12.2-14.2) Prothrombin Time Ratio 1.4 INR International Normalized Ratio 1.52 Activated Partial Thromboplast Time 43.7Sec (25.0-35.0) Fibrinogen 594.0mg/dl (207-461) Sodium Level 157mmol/L (135-144) Potassium Level 3.6mmol/L (3.5-5.1) Chloride Level 117mmol/L (97-110) Carbon Dioxide Level 23mmol/L (21-31) Anion Gap 21 (8-16) Blood Urea Nitrogen 72mg/dl (7-20) Creatinine 1.60mg/dl (0.61-1.24) Glucose Level 152mg/dl (70-220) Calcium Level 6.5mg/dl (8.4-10.2) Phosphorus Level 4.4mg/dl (2.5-4.9) Magnesium Level 2.0mg/dl (1.7-2.5) Total Bilirubin 0.2mg/dl (0.2-1.3) Direct Bilirubin 0.00mg/dl (0.00-0.20) Indirect Bilirubin 0.2mg/dl (0-1.1) Aspartate Amino Transf (AST/SGOT) 97IU/L (15-46) Alanine Aminotransferase (ALT/SGPT) 66IU/L (13-69) Alkaline Phosphatase 75IU/L (42-121) Troponin I 0.205ng/ml (0.00-0.12) Total Protein 6.1g/dl (6.1-8.1) Albumin 2.4g/dl (3.3-4.9) Globulin 3.70g/dl (1.3-3.2) Albumin/Globulin Ratio 0.64 Amylase Level 83U/L (11-123) Lipase < 10U/L (23-300) Blood Gas Specimen Source Blood arterial Arterial Blood Date Drawn 03/20/2017 3:09:33 AM Arterial Blood pH (Temp corrected) 7.455 (7.350-7.450) Arterial Blood pCO2 (Temp correct) 26.7mmhg (35-45) Arterial Blood pO2 (Temp corrected) 227.6mmHG (80-90.0) Arterial Blood HCO3 18.6mmol/L (22.0-26.0) Arterial Blood Base Excess -4.5mmol/L (-3.0-3) Arterial Blood Oxygen Saturation 99.1mmHG (95.0-100.0) [facility] Test ACCEPTAB Arterial Blood Gas Puncture Site Right Radial Arterial Blood Carboxyhemoglobin 0.3% (0.0-3.0) Arterial Blood Methemoglobin 0.4% (0.0-1.5) Oxyhemoglobin Percent 98.4% (93.0-99.0) Total Hemoglobin 11.2g/dl (12.0-18.0) Blood Gas Temperature 35.6C Blood Gas Respiration Rate 18.0 Blood Gas Actual Respiration Rate 18 Blood Gas Modality 550 FiO2 30.0% Blood Gas Tidal Volume 550.0mL Blood Gas Mean Airway Pressure 11 Blood Gas Low PEEP Setting 5.0cmH2O Blood Gas Inspiratory Pressure 33.0 Blood Gas Critical Value Read Back Radha RAMIREZ R.N. Blood Gas Notified Whom [facility] Blood Gas Notified Time 03/20/2017 3:21:42 AM Test 03/20/17 02:35 03/20/17 03:41 03/20/17 04:01 03/20/17 05:00 Bedside Glucose 153mg/dL (70-220) 146mg/dL (70-220) Blood Gas Specimen Source Blood arterial Arterial Blood Date Drawn 03/20/2017 3:45:59 AM Arterial Blood pH (Temp corrected) 7.485 (7.350-7.450) Arterial Blood pCO2 (Temp correct) 26.1mmhg (35-45) Arterial Blood pO2 (Temp corrected) 104.6mmHG (80-90.0) Arterial Blood HCO3 19.4mmol/L (22.0-26.0) Arterial Blood Base Excess -3.3mmol/L (-3.0-3) Arterial Blood Oxygen Saturation 97.7mmHG (95.0-100.0) [facility] Test ACCEPTAB Arterial Blood Gas Puncture Site Right Radial Arterial Blood Carboxyhemoglobin 0.3% (0.0-3.0) Arterial Blood Methemoglobin 0.3% (0.0-1.5) Blood Gas A-a O2 Differential 79.5mmHg (7.0-24.0) Oxyhemoglobin Percent 97.1% (93.0-99.0) Total Hemoglobin 10.1g/dl (12.0-18.0) Blood Gas Temperature 35.8C Blood Gas Respiration Rate 18.0 Blood Gas Actual Respiration Rate 18 Blood Gas Modality VENT - AC FiO2 30.0% Blood Gas Tidal Volume 550.0mL Blood Gas Mean Airway Pressure 11 Blood Gas Low PEEP Setting 5.0cmH2O Blood Gas Inspiratory Pressure 24.0 Blood Gas Notified Whom [facility] Blood Gas Notified Time 03/20/2017 3:57:22 AM White Blood Count 13.210^3/ul (4.8-10.8) Red Blood Count 3.2210^6/ul (4.70-6.10) Hemoglobin 9.1g/dl (14.0-18.0) Hematocrit 29.8% (42.0-52.0) Mean Corpuscular Volume 92.5fl (82.0-101.0) Mean Corpuscular Hemoglobin 28.3pg (29.0-33.0) Mean Corpuscular Hemoglobin Concent 30.5g/dl (32.0-37.0) Red Cell Distribution Width 15.7% (11.5-14.5) Platelet Count 64005^3/UL (140-415) Mean Platelet Volume 14.1fl (7.4-10.4) Neutrophils % 89.9% (39.0-77.0) Lymphocytes % 6.8% (15.0-51.0) Monocytes % 1.2% (0.0-11.0) Eosinophils % 0.0% (0.0-7.0) Basophils % 0.5% (0.0-2.0) Nucleated Red Blood Cells % 0.0/100WBC (0.0-0.0) Neutrophils # 11.910^3/ul (1.6-7.5) Lymphocytes # 0.910^3/ul (0.8-2.9) Monocytes # 0.210^3/ul (0.3-0.9) Eosinophils # 0.010^3/ul (0.0-0.5) Basophils # 0.110^3/ul (0.0-0.1) Nucleated Red Blood Cells # 0.010^3/ul (0.0-0.0) Prothrombin Time 18.4Sec (12.2-14.2) Prothrombin Time Ratio 1.4 INR International Normalized Ratio 1.52 Activated Partial Thromboplast Time 48.9Sec (25.0-35.0) Fibrinogen 581.0mg/dl (207-461) Sodium Level 158mmol/L (135-144) Potassium Level 3.8mmol/L (3.5-5.1) Chloride Level 119mmol/L (97-110) Carbon Dioxide Level 22mmol/L (21-31) Anion Gap 21 (8-16) Blood Urea Nitrogen 71mg/dl (7-20) Creatinine 1.81mg/dl (0.61-1.24) Glucose Level 138mg/dl (70-220) Calcium Level 6.6mg/dl (8.4-10.2) Phosphorus Level 4.5mg/dl (2.5-4.9) Magnesium Level 2.1mg/dl (1.7-2.5) Total Bilirubin 0.2mg/dl (0.2-1.3) Direct Bilirubin 0.00mg/dl (0.00-0.20) Indirect Bilirubin 0.2mg/dl (0-1.1) Aspartate Amino Transf (AST/SGOT) 78IU/L (15-46) Alanine Aminotransferase (ALT/SGPT) 59IU/L (13-69) Alkaline Phosphatase 75IU/L (42-121) Troponin I 0.223ng/ml (0.00-0.12) Total Protein 6.2g/dl (6.1-8.1) Albumin 2.6g/dl (3.3-4.9) Globulin 3.60g/dl (1.3-3.2) Albumin/Globulin Ratio 0.72 Amylase Level 47U/L (11-123) Lipase < 10U/L (23-300) Test 03/20/17 05:40 03/20/17 06:23 Lactic Acid Level 3.6mmol/L (0.5-2.0) Bedside Glucose 149mg/dL (70-220) Microbiology Date/Time Source Procedure Growth Status 03/19/17 15:01 Nares MRSA Screen - Preliminary Screening in process Resulted WENDY SHI Mar 20, 2017 10:01
== END 2017-03-20 09:44 | disposition expired | DRG 871 ==
LOC: E/R 07:27 → ICU 09:15
PROVIDERS: ADMIT Internal Medicine; ATTEND Internal Medicine
PROC: 0BH17EZ Insertion of Endotracheal Airway into Trachea, Via Natural or Artificial Opening (ICD-10-PCS; principal; 2017-03-18)
PROC: 5A1945Z Respiratory Ventilation, 24-96 Consecutive Hours (ICD-10-PCS; 2017-03-18)
PROC: 5A12012 Performance of Cardiac Output, Single, Manual (ICD-10-PCS; 2017-03-18)
PROC: 6A4Z0ZZ Hypothermia, Single (ICD-10-PCS; 2017-03-18)
DX: A41.9 Sepsis, unspecified organism (principal); J96.01 Acute respiratory failure with hypoxia; I21.4 Non-ST elevation (NSTEMI) myocardial infarction; J69.0 Pneumonitis due to inhalation of food and vomit; R65.21 Severe sepsis with septic shock; N17.9 Acute kidney failure, unspecified; E87.0 Hyperosmolality and hypernatremia; L89.313 Pressure ulcer of right buttock, stage 3; E87.2 Acidosis; I48.2 Chronic atrial fibrillation; E86.0 Dehydration; I10 Essential (primary) hypertension; M06.9 Rheumatoid arthritis, unspecified; Z51.5 Encounter for palliative care; I25.10 Atherosclerotic heart disease of native coronary artery without angina pectoris; G40.909 Epilepsy, unspecified, not intractable, without status epilepticus; I73.9 Peripheral vascular disease, unspecified; F41.9 Anxiety disorder, unspecified; F32.9 Major depressive disorder, single episode, unspecified; D64.9 Anemia, unspecified; E11.65 Type 2 diabetes mellitus with hyperglycemia; Z93.1 Gastrostomy status; Z79.4 Long term (current) use of insulin; Z87.820 Personal history of traumatic brain injury; Z86.11 Personal history of tuberculosis
CPT/HCPCS: 31500; 36600; 71010; 80048; 80053; 80061; 81001; 82150; 82550; 82553; 82803; 82962; 83036; 83605; 83690; 83735; 83930; 83935; 84100; 84300; 84439; 84443; 84484; 85025; 85378; 85384; 85610; 85730; 87040; 87081; 87086; 92950; 93005; 93306; 94002; 94003; 94770; 96365; 96366; 96367; 96375; J0461; J0692; J1815; J1956; J2060; J2250; J2270; J2543; J3010; J3370; J3480; J7030; J7040; J7050; J7060; J7070